=== PATIENT | female | born 1950 | race Caucasian/White ===

== ENCOUNTER 2018-09-02 11:26 | Inpatient (IN) | payer OTHER, SELFPAY ==
[2018-09-02] VITALS (14 sets, daily range): BP systolic 92–149; BP diastolic 45–80; PULSE 83–124; RESP 13–21; TEMP 36.6–39.6; O2SAT 93–97; BMI 47.0
--- NOTE | 2018-09-02 15:05 | PC.NURSE ---
Day shift pt arrived to floor via stretcher from [facility], is A&Ox3 able to make needs known. pt has increased pain to right knee has redness, warmth and increased swelling. pt has hard time bearing weight to right leg, can shuffle transfer. lung sounds are clear 98%RA. spouse at bedside. IV SL. Dr mckenna at bedside aspirated knee and specimens sent to lab. Dr mckenna going to take pt to OR for clean out. oriented to room and call light
[2018-09-02 15:32] LABS: Body Fluid Red Blood Cells 35519 /uL; Body Fluid Tot Nucleated Cells 78137 /uL
[2018-09-02] MEDS: HYDROMORPHONE 0.5 MG INJ IV (15:44)
[2018-09-02 15:49] LABS: Body Fluid Appearance CLOUDY; Body Fluid Clotted? NO CLOTS PRESENT; Body Fluid Color PINK; Eosinophils Body Fluid 0 %; Mononuclear WBC Body Fluid 4 %; Other Cells Body Fluid 0 %; Polynuclear WBC Body Fluid 96 %
[2018-09-02] MEDS: LACTATED RINGERS 1,000 ML 100 ML IV (15:49)
[2018-09-02] MEDS: KETOROLAC 15 MG/ML VIAL IV (15:58)
--- NOTE | 2018-09-02 17:17 | PC.NURSE ---
Student Nurse Dena Note: During shift change, patient reported 10/10 pain to her right lower extremity and was hyperventilating and anxious. Patient was encouraged to wear CPAP and helped set it up. Patient was able to breathe better with CPAP on. Right lower extremity was hot when palpated and red upon inspection. Patient was given 0.5 mg Dilaudid IV push at 1614 and Toradol 15 mg IV push at 1628 by primary nurse. Ice pack was also applied to the patient's right lower extremity, which she reported helped relieve the pain as well. Patient reported feeling better about 30 minutes after the pain medication was given. Around 1645, patient got up to the beside commode to void with a 2 person assist and walker. Patient tolerated it well with slight pain to the RLE. Patient was then transferred to the OR at 1700.
--- NOTE | 2018-09-02 17:29 | SUR.HOLD ---
pt brought down to opd, seen by dr mckenna. at bedside.
--- NOTE | 2018-09-02 18:14 | PM.HP.1 ---
History of Present Illness Date Patient Seen: 09/02/18 Time Patient Seen: 14:47 Chief complaint: possible infected r knee Narrative: This is a 67-year-old lady that had a total knee arthroplasty back in January. She has a history of chronic rheumatoid arthritis and is been on medications for about 26 years. She notes that her knee has been doing very well she has had no pain and no complaints related to the knee. Her swelling completely resolved and she was not taking any pain medications. She has had some increased rheumatological symptoms in bilateral hands and was having difficulty making a fist. Her counselor supervisor is Dr. Valerio in about a month ago he adjusted her medications to include prednisone 20 mg a day and a new injectable DMAR medication. She was doing well until yesterday when she developed acute knee swelling marked increase in her pain and difficulty with walking. She checked her temperature at home and did not have fevers but she felt warm. Her pain progressively worsened and she prevented presented to [facility] where her exam suggested infection in the right knee. I was contacted and accepted her in transfer to [facility]. She was afebrile at [facility] but did have an elevated white count with a sed rate of 16. Her CRP was 2.3. Patient History Family & Social History Family History: Reviewed 09/02/18 by Fernanda Salazar MD Social History: household members spouse Prior Living Arrangements House Safety & Behavioral: Feels Safe in Current Yes Environment Been Physically Hurt or No Threatened By a Person Suicidal Ideation Description None Suicide Plan Description No Plan Tobacco & Substance use: Smoking Status Never smoker alcohol intake never Meds Home Medications Medication Instructions Recorded Confirmed Type calcium carbonate 600 mg PO BID #0 12/30/17 09/02/18 History hydrochlorothiazide 25 mg PO QDAY #0 12/30/17 09/02/18 History imipramine HCl [Tofranil] 100 mg PO HS #0 12/30/17 09/02/18 History losartan 25 mg PO QDAY #0 12/30/17 09/02/18 History multivitamin [Multiple Vitamins] 1 tab PO QDAY #0 12/30/17 09/02/18 History pramipexole [Mirapex] 0.5 mg PO QDAY #0 12/30/17 09/02/18 History ranitidine HCl [Zantac] 150 mg PO HS #0 12/30/17 09/02/18 History aspirin 81 mg PO BID #90 01/17/18 09/02/18 Rx hydroxyzine pamoate 25 mg PO Q4HP PRN #40 cap 01/17/18 09/02/18 Rx oxycodone 5 mg PO Q4HP PRN #60 01/17/18 09/02/18 Rx betamethasone valerate 1 applic TOPICAL TID 09/02/18 09/02/18 History cholecalciferol (vitamin D3) 2,000 unit PO DAILY 09/02/18 09/02/18 History [Vitamin D3] leflunomide 20 mg PO DAILY 09/02/18 09/02/18 History prednisone 20 mg PO DAILY 09/02/18 09/02/18 History tocilizumab 162 mg SUBCUT QWEEK 09/02/18 09/02/18 History triamcinolone acetonide 1 applic TOPICAL TID 09/02/18 09/02/18 History Allergies Allergy/AdvReac Type Severity Reaction Status Date / Time Benzodiazepines AdvReac Severe R/T HEAD Verified 09/02/18 17:27 [BENZODIAZEPINES] INJURY, TEARING CLOTHES OFF, NO MEMORY X2 DAYS lorazepam [LORAZEPAM] AdvReac Severe ANXIETY Verified 09/02/18 17:27 metoprolol [METOPROLOL] AdvReac Severe DEPRESSION, Verified 09/02/18 17:27 EXTREME FATIGUE lisinopril [LISINOPRIL] AdvReac Intermediate COUGH Verified 09/02/18 17:27 Review of Systems Review of Systems Patient notes that she has been feeling reasonably well. She did have a problem with a chronic cough for about 2 weeks but in improved over the last week. She denies a history of recent significant fevers or chills. She has a history of problem with her right foot and has seen podiatry and was treated for a small plantar foot ulcer as recently as a month ago. She denies any recent urological symptoms or difficulty voiding. She had some problems with a probable yeast infection previously which responded to antifungal medications. She is not currently having symptoms of a yeast infection. She denies any recent GI symptoms. She has not had any recent chest pain or neck pain. Her hands and other arthritic joints have been symptomatic but her knee was doing extremely well until yesterday. She denies a history of a DVT or pulmonary embolism does note some swelling in the right leg which is basically worse within the last 24 hr. Exam Vital Signs (past 8 hours): - 09/02/18 13:05 09/02/18 15:13 09/02/18 17:09 Temperature 98.5 F 103.2 F H Pulse Rate 103 H 83 104 H Respiratory Rate 18 20 Blood Pressure 129/55 L 132/69 149/80 H Pulse Oximetry 94 97 Oxygen Delivery Method Room Air Narrative Exam Narrative: She appears to be in substantial distressed and notes severe right knee pain. HEENT is benign. Neck is supple. Lungs show an occasional rhonchi but no wheezes. Heart has a regular rate and rhythm. Abdomen is obese but benign. Bowel sounds are positive. Examination of the right lower extremity shows a well-healed scar. There is a moderate to significant right knee effusion. There is some erythema and the right lower extremity which extends down into the pretibial region. There is mild swelling of the calf. She is nontender along the posterior calf. She has palpable dorsalis pedis and posterior tibial pulses. She is able to fire toe flexors and extensors. Knee range of motion is from 0 to about 90? with severe pain. She has difficulty with any weight-bearing on the right lower extremity. Objective Labs Labs: Laboratory Results - last 24 hr 09/02/18 Unknown Fluid Color [place] Fluid Appearance Cloudy Fluid RBC 35866 Fld Tot Nucleated Cell 62836 Fluid Polynuclear WBCs 96 Fluid Mononuclear WBCs 4 Fluid Eosinophils 0 Fluid Other Cells 0 Body Fluid Clot No clots present Assessment & Plan Plan: Assessment/Plan Narrative: Kaity hernández clinical examination is suggestive of an acute right knee infection. 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 She was afebrile on admission but her temperatures risen to 103. She has not had symptoms in her knee in the last few months. She is on immunosuppressant medications due to her rheumatoid arthritis which have been increased within the last month. Her x-rays are concerning for some radial lucency along the tibial component. Her aspiration showed a significant number of white blood cells. Her sedimentation rate is only 16 and her C reactive protein is 2.3. Her cultures are currently pending. I have recommended urgent right knee irrigation and debridement with a plan for polyethylene exchange. I had an extensive discussion with the patient and her today that this may represent a chronic infection and she may require additional surgeries including removal of her implant placement of an antibiotic spacer and a 2 staged surgery. Currently she is febrile and requires urgent irrigation and debridement. Clinically her symptoms are acute within less than 24 hr. Procedure alternatives risks benefits and complications were discussed in great detail. Specific concerns regarding chronic infection and possible multiple requirement from prolonged antibiotics and multiple procedures was also discussed. Quality VTE Deep Vein Thrombosis/Pulmonary Embolism Present on Admission: No
--- NOTE | 2018-09-02 18:36 | PM.OP.1 ---
Operative Date/Time/Diagnoses Date of procedure: 09/02/18 Time of procedure: 18:36 Pre-op diagnosis: Right knee periprosthetic infection Post-op diagnosis: same Procedure & Clinicians Procedure: Right total knee revision with removal of polyethylene and polyethylene exchange and irrigation and debridement right knee. Same procedure as scheduled: Yes Indications: This is a 67-year-old female who had the acute onset of fevers chills and a right knee effusion and presented to the emergency room and was transferred for evaluation and orthopedic treatment. An aspiration of her knee was highly suggestive of infection should brought the operating room for irrigation and debridement and polyethylene exchange treatment is needed. Surgeon: Fernanda Salazar Hairspring I Inspector: Kassi Durant Anesthesia Type: General Operative Notes Findings: Cloudy fluid throughout the knee with significant inflammation of the synovium, no obvious component loosening, medial tibial cement interface was specifically checked and cultured. Closure Type: primary Specimen(s): other (Multiple cultures and PCR) Implants & Drains: Journey BCS2 size 9, 5 6 poly Applied: drain(s) Estimated Blood Loss (mL): 150 Blood products transfused: none Tourniquet time (min): 70 Procedure in detail: The patient was seen in the pre-operative area, where the patient identified the right knee as the operative site and this was marked with my initials. The patient had her pre-operative antibiotics held so that we could get optimum intraoperative cultures. She was taken to the operating room and placed on the operative table in the supine position. After satisfactory anesthesia, a multimedia developer out was performed. The right leg was encircled with a tourniquet about the proximal thigh, and the leg was prepared from the toes to the tourniquet with ChloroPrep in the usual fashion and draped through sterile drapes. The leg was elevated and the tourniquet inflated to [250] mmHg pressure. The knee was approached through an approximately 18 cm incision centered over the patella and carried into the knee through a medial parapatellar arthrotomy. There was a significant amount of fluid in the knee. Additional intraoperative synovial fluid was sent as well as cultures of the synovium posterior aspect of the knee tibial area and PCR was also sent. A synovectomy was performed and any grossly inflamed, softened or necrotic soft tissues were then removed. The capsule was meticulously mobilized. The polyethylene was removed. Fairly extensive synovectomy was performed including the posterior capsule. The knee was then irrigated with a total of 9 L of pulse lavage. Both the femoral component and the tibial component was meticulously scrubbed with a sterile scrub brush in order to break up any biofilm. The proximal medial tibia was specifically checked in the interface between the bone and the proximal medial tibial component was specifically cultured. There did not appear to be evidence of tibial component loosening or significant proximal tibial softening. After the knee had been meticulously debrided and all cultures had been obtained, gloves and gowns were changed and new instruments were used to insert a new polyethylene. Vancomycin powder was placed in the posterior aspect of the knee as well as the gutters. And also in the suprapatellar pouch and along the synovium. The soft tissues and knee capsule was injected with part of a mixture of 60 ml 0.25% Marcaine mixed with 20 ml Exparel for post operative pain control. The remainder of this mixture was injected into the capsule and subcutaneous tissues. Range of motion was [0-130], with good stability throughout the range. The tourniquet deflated. Hemostasis was obtained with the Bovie cautery. A drain was placed and brought out superolaterally. The capsule was closed with interrupted monofilament PDS. The subcutaneous layer was closed with a limited amount of monofilament PDS. The skin was closed with skin clips. A sam dressing was applied and the patient was taken to recovery having tolerated the procedure well. Complications: none Condition: stable Disposition: Acute Care Plan for aftercare: Follow up on culture results. Place a PICC line. IV antibiotics as indicated likely for 6 weeks of IV antibiotics and then probable oral antibiotics.
[2018-09-02] MEDS: VANCOMYCIN 1,000 MG/200 ML FROZ.PIGGY 200 MG IV (19:15)
[2018-09-02] MEDS: SODIUM CHLORIDE 0.9% 3,000 ML, GENTAMICIN 80 MG IRR (19:21)
[2018-09-02] MEDS: CEFAZOLIN 2 GM/100 ML FROZ.PIGGY IV (19:21)
[2018-09-02] MEDS: VANCOMYCIN 1,000 MG VIAL 1000 MG TOP (19:23)
[2018-09-02] MEDS: SODIUM CHLORIDE IRRIG SOLUTION 3,000 ML 6000 ML IRR (19:27)
[2018-09-02] MEDS: CEFAZOLIN 1 GM VIAL IV (19:31)
--- NOTE | 2018-09-02 20:00 | PC.NURSE ---
Addendum entered by Brenda Rich R.N. 09/02/18 23:46: cpap on, pt remains with oxygen bled. pox 94-99% on cpap. pt ate ice chips and put on NC 2L- 97%. then placed back on cpap. Original Note: Addendum entered by Brenda Rich R.N. 09/02/18 22:04: 2124- pt arrived to floor at 2125 from pacu. pt sleepy, on cpap, and pt has 2 L oxygen bled in. Pt saturation 94-98% on that. when pt is awake. when pt sleeps, pt anywhere from 93-96%. continuous pulse ox applied. Pt oriented. arouses to voice. in room. Pt rolled slightly to right side and her bottom was hurting. pillow placed under bottom and leg. ivett wrap reinforced with tape. HV draining. sam on and flashing OK. bed alarm on. pt refuses water/ice chips at this time. Original Note: 1500- late entry- assumed care of pt. Pt very anxious and crying out/moaning/worked up about pain in knee. Pt given prn medications as ordered fluids started. admission complete and home medications updated. 1530- Pt hyperventilating and very anxious. encouraged to take deep breaths, pt put her CPAP on, given sterile water per protocol. , yue, set up cpap. Pt uses this and it did help. pt given ice pack. NPO for surgery in a few hours. bed alarm on. side rails upx2. givn additional pillows and blanket. 1650-Pt up with 2pa to bsc. still has a lot of pain in her knee even though pain meds are on board. 1700- surgery here to take pt down to surgery. went with.room door and curtain closed.
--- NOTE | 2018-09-02 20:17 | SUR.OPER ---
Supine on padded OR bed. Pillow under head, arms secured on padded armboards <90 degree abduction. Safety belt across torso. Non-operative leg secured with tape over blanket over lower leg. Operative leg secured in DeMayo/Jose Angel positioner. Foam padded brace at thigh of operative leg.
[2018-09-02] MEDS: LACTATED RINGERS 1,000 ML 42 ML IV ×2 (21:05→21:07)
[2018-09-03] VITALS (7 sets, daily range): BP systolic 117–150; BP diastolic 61–79; PULSE 90–102; RESP 14–21; TEMP 36.4–37; O2SAT 92–96
[2018-09-03] MEDS: ACETAMINOPHEN 325 MG TABLET 975 MG PO ×4 (00:31→20:29)
[2018-09-03] MEDS: ASPIRIN EC 81 MG TABLET PO ×3 (00:32→20:29)
[2018-09-03] MEDS: LACTATED RINGERS 1,000 ML 125 ML IV (00:34)
[2018-09-03] MEDS: PRAMIPEXOLE 0.25 MG TABLET 0.5 MG PO ×2 (00:34→08:26)
[2018-09-03] MEDS: DOCUSATE 100 MG CAPSULE PO ×3 (00:36→20:30)
[2018-09-03] MEDS: CEFAZOLIN VIAL 3 GM in SODIUM CHLORIDE 0.9% 100 ML 200 ML IV ×3 (02:46→18:47)
[2018-09-03 05:46] LABS: Add Manual Diff / Slide Review NO; Basophils Percent Auto 0.2 % (0-2); Eosinophils Percent Auto 0.2 % (2-4); Hematocrit 34.5 % (36-46); Hemoglobin 11.4 g/dL (12.0-16.0); Lymphocytes Percent Auto 5.5 % (25-40); Mean Corpuscular HGB Conc 33.1 % (30-36); Mean Corpuscular Hemoglobin 26.6 PG (26-34); Mean Corpuscular Volume 80.3 fL (80-100); Monocytes Percent Auto 12.1 % (3-14); Neutrophils Absolute Auto 13600 /uL (3000-5900); Platelet Count 210 X10^3/uL (150-400); White Blood Cell Count 16.6 X10^3/uL (4.5-11.0)
[2018-09-03] MEDS: IBUPROFEN 600 MG TABLET PO (06:32)
[2018-09-03] MEDS: hydrOXYzine pamoate 25 MG CAPSULE PO (06:33)
[2018-09-03] MEDS: HYDROCODONE/ACET 5/325 TABLET 2 TAB PO (08:03)
[2018-09-03] MEDS: MULTIVITAMIN 1 TABLET 1 TAB PO (08:26)
[2018-09-03] MEDS: hydroCHLOROthiazide 25 MG TABLET PO (08:26)
[2018-09-03] MEDS: LOSARTAN 25 MG TABLET PO (08:26)
[2018-09-03] MEDS: CHOLECALCIFEROL (VITAMIN D3) 1,000 UNIT TABLET 2000 UNIT PO (08:27)
[2018-09-03] MEDS: predniSONE 20 MG TABLET PO (08:27)
--- NOTE | 2018-09-03 09:05 | PT.IIE ---
Addendum entered and electronically signed by Briana Philippe PT 09/03/18 13:36: This is to certify that I have reviewed this documentation and POC Original Note: Current Diagnoses Infection and inflammatory reaction due to internal right knee prosthesis, initial encounter (09/02/18) Surgery Performed Operation Date: 09/02/18 16:30 Actual Procedures p I&D - S/P,Total Knee Arthroplasty, Poss Poly Exchange(Right) - Fernanda Salazar MD Physical Therapy Inpatient Evaluation/Re-Eval M1 PT/OT-IP Prior Functional Status Start: 09/03/18 11:37 Freq: NEEDED Status: Active Protocol: Document 09/03/18 09:05 (Rec: 09/03/18 12:01 [email or web address]) Medical Review Prior Functional Status Medical History Reviewed Yes Communication No deficits noted Mobility and Gait Previous ambulation independent using no AD for shopping distances. Pt uses 2 trekking poles for longer distances over uneven terrain; for example hiking, but she states not having tried that for a while. She is modified independent with self care using a sock aide to dress but is otherwise independent with all self care, showering, dressing and driving. 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 3 steps B rails Home Environment High Toilet Walk in Shower Home Equipment Front Wheel Walker Shower Seat without Backrest Hand Held Shower Financial Administration Officer Sock Aid Grab Bars Near Toilet Additional Social History Comment Other equipment owned: Tempurpedic bed, Recumbant bike, 2 trekking poles. Lives with who can assist 29/04 if needed. M2 PT-IP Current Condition Start: 09/03/18 11:37 Freq: NEEDED Status: Active Protocol: Document 09/03/18 09:05 (Rec: 09/03/18 12:01 [email or web address]) Physical Therapy Current Condition Current Condition Evaluation Date 09/03/18 Treatment Diagnosis R TKA; difficulty walking Onset Date 09/02/2018 Weight Bearing Status Weight Bearing Status Weight Bear as Tolerated M3 PT-IP Subjective Start: 09/03/18 11:37 Freq: NEEDED Status: Active Protocol: Document 09/03/18 09:05 (Rec: 11/28/18 12:01 [email or web address]) Subjective Physical Therapy Visit Type Type Initial Evaluation Visit Start Time 09:05 Visit Stop Time 09:42 Total Visit Minutes 37 Number of MACHINE INKER Visits 0 Physical Therapy Visit Comments Patient Comments Pt agreeable to mobilize Patient Goals plans to go home with spouse when d/c Therapy Pain Assessment Pain When Pain Assessed During Mobility Pain Present Pain Present Pain Reported Location Right Knee Scale Used 5/10 with warm up AAROME; 3-4/ 10 during ambulation; 3/10 resting Pain Behaviors Facial Grimacing Pain Management Techniques Apply Cold Elevation Modification of Treatment Re-positioning Timing of Activity with Medications M4 PT-IP Mobility and Gait Start: 09/03/18 11:37 Freq: NEEDED Status: Active Protocol: Document 09/03/18 09:05 (Rec: 09/03/18 12:01 [email or web address]) PT-Bed Mobility Assessment Supine to Sit Supine to Sit Standby Assistance Head of Bed Elevated Sit to Supine Sit to Supine Standby Assistance Head of Bed Elevated Scooting Scooting to Edge of Bed Standby Assistance Scooting Up and Down in Bed Standby Assistance PT-Transfer Assessment Sit to and From Stand Sit to and from Stand Contact Guard Assistance Minimal Assistance 1 Person Assistance Use of Upper Extremities Equipment Transfer Assistive Device Gait Belt Front Wheeled Walker Orthotic/Prosthetic Devices or Brace: No Transfers Transfer Destination Bed Chair Transfer Technique Ambulates between surfaces. Comments Mobility Comments Resting/supine HOB elevated BP 123/71, HR 89. Supine <> sit with HOB elevated (per pt preference) is SBA no cues; requiring slight increased time and heavy reliance on BUE , but pt able to complete. Sit <> stand 1st attempt requiring Ana, BUE use, min cues; however, after ambulation (see below), Sit <> stand completed CGA, BUE use, no cues. Gait Assessment Gait Gait Assistance Required: Standby Assistance Distance (Feet) 30 Able to Maintain Weight Bearing Status Yes During Gait Assistive Devices Assistive Device Gait Belt Front Wheeled Walker Orthotic/Prosthetic Devices or Brace: No Gait Deviations General Gait Pattern Antalgic Decreased Stride Length Decreased Feet Clearance Factors Limiting Gait Function Factors Limiting Gait Function Decreased Activity Tolerance Decreased Strength Limited Range of Motion Pain Poor Balance Comments Gait Comments Pt ambulates 30+30 ft in room with fww SBA with cues. Gait notable for antalgic limp over R side, lateral trunk sway, decreased stride length, low foot clearance and slow guarded pace. Sway and antalgic gait are improved with cues to activate quads R LE, foot clearance improves with cue to lease picker knees. Pt relying heavily on walker during ambulation. Pt denies nausea/dizziness or headache throughout session. PT-Balance Assessment Sitting Balance and Reactions Static Sitting Balance Ability Good Dynamic Sitting Balance Ability Good Standing Balance and Reactions Static Standing Balance Ability Good Dynamic Standing Balance Ability Fair Device Used fww M5 PT-IP Objective Assessments Start: 09/03/18 11:37 Freq: NEEDED Status: Active Protocol: Document 09/03/18 09:05 (Rec: 09/03/18 12:01 [email or web address]) Orientation Orientation/Cognition Level of Alertness Alert Orientation Name Age Birthday Month Date Year Day of Week Place Situation Language Function Ability No Deficits Noted Safety Awareness Decreased Safety Awareness Memory Description No Deficits Noted Gross Range of Motion Lower Extremity ROM Assessment Right Impaired Impairments R knee flexion 70 deg. Knee extension 0 deg Strength Lower Extremity Strength Assessment Right Impaired Hip 3 Knee 3 Ankle 5 Comments Strength Comments RLE WNL Sensation Assessment Sensation Light Touch Intact M6 PT-IP Treatment Start: 09/03/18 11:37 Freq: NEEDED Status: Active Protocol: Document 09/03/18 09:05 (Rec: 09/03/18 12:01 [email or web address]) Physical Therapy Treatment Education Education Provided Precautions Weight Bearing Status Post-Op Packet Safety Other Treatments Other Treatment Performed AAROME X10 R knee heel slides M7 PT-IP Assessment and Plan Start: 09/03/18 11:37 Freq: NEEDED Status: Active Protocol: Document 09/03/18 09:05 (Rec: 09/03/18 12:01 [email or web address]) PT Summary Assessment and Plan Potential Rehabilitation Potential Good Status of Condition at Evaluation Stable Summary Impairments Pain ROM Strength Balance Bed Mobility Transfers Gait Activity Tolerance Progress Towards Goals Progressing Toward Goals Assessment Summary Pt s/p R TKA with difficulty walking. She ambulated 30 + 30 ft in room with fww SBA and stated mobility helped to reduce her pain. The patient still needs to complete stair climbing, progress ambulation distances, and complete caregiver training as needed prior to d/c. Then, when pt is medically ready, we recommend d/c to home with assist of spouse and OP PT. Pt still does not have OP PT scheduled. Goals Bed Mobility Goal Independent Transfer Goal Independent Front Wheeled Walker Gait Goal Independent Front Wheel Walker Gait Distance 150 Other Goals Up/down 3 steps B rails CGA. Frequency of Treatment Frequency Of Treatment Twice a Day Treatment Plan Physical Therapy Treatment Plan Bed Mobility Training Transfer Training Gait Training Therapeutic Exercise Balance Retraining Post Op Education Discharge Planning Hot or Cold Pack Neuromuscular Re-ed Coordination Retraining Manual Therapy Other Recommendations and Next Treatment Progress ambulation, stair Focus climbing, review post-op TKA exercises, arrange caregiver training Recommendations To Nursing Amount of Assist Needed 1 Person Assist Discharge Recommendations PT Discharge Recommendations Home with Assistance Outpatient PT
[2018-09-03 13:19] LABS: Estimated Glomerular Filt Rate > 60.0 mL/min (>60)
--- NOTE | 2018-09-03 13:45 | PT.IPTN ---
Current Diagnoses Infection and inflammatory reaction due to internal right knee prosthesis, initial encounter (09/02/18) Surgery Performed Operation Date: 09/02/18 16:30 Actual Procedures p I&D - S/P,Total Knee Arthroplasty, Poss Poly Exchange(Right) - Fernanda Salazar MD Physical Therapy Treatment Note M2 PT-IP Current Condition Start: 09/03/18 11:37 Freq: NEEDED Status: Active Protocol: Document 09/03/18 09:05 (Rec: 09/03/18 12:01 [email or web address]) Physical Therapy Current Condition Current Condition Evaluation Date 09/03/18 Treatment Diagnosis R TKA; difficulty walking Onset Date 09/02/2018 Weight Bearing Status Weight Bearing Status Weight Bear as Tolerated M3 PT-IP Subjective Start: 09/03/18 11:37 Freq: NEEDED Status: Active Protocol: Document 09/03/18 13:45 GGD (Rec: 09/03/18 15:36 GGD [email or web address]) Subjective Physical Therapy Visit Type Type Treatment Note Visit Start Time 13:15 Visit Stop Time 13:45 Total Visit Minutes 30 Number of BLOOD BANK LABORATORY TECHNICIAN Visits 1 Physical Therapy Visit Comments Patient Comments Pt states she would like to get up. Therapy Pain Assessment Pain When Pain Assessed During Mobility Pain Present Pain Present Pain Reported Location Right Knee Intensity 4 Scale Used Numeric (1 - 10) Pain Management Techniques Re-positioning Timing of Activity with Medications M4 PT-IP Mobility and Gait Start: 09/03/18 11:37 Freq: NEEDED Status: Active Protocol: Document 09/03/18 13:45 GGD (Rec: 09/03/18 15:36 GGD [email or web address]) PT-Bed Mobility Assessment Supine to Sit Supine to Sit Standby Assistance Head of Bed Elevated Sit to Supine Sit to Supine Standby Assistance Head of Bed Elevated Scooting Scooting to Edge of Bed Standby Assistance Scooting Up and Down in Bed Standby Assistance PT-Transfer Assessment Sit to and From Stand Sit to and from Stand Contact Guard Assistance Use of Upper Extremities Equipment Transfer Assistive Device Gait Belt Front Wheeled Walker Orthotic/Prosthetic Devices or Brace: No Transfers Transfer Destination Bed Chair Gait Assessment Gait Gait Assistance Required: Standby Assistance Distance (Feet) 80 Able to Maintain Weight Bearing Status Yes During Gait Assistive Devices Assistive Device Gait Belt Front Wheeled Walker Orthotic/Prosthetic Devices or Brace: No Gait Deviations General Gait Pattern Antalgic Decreased Stride Length Decreased Feet Clearance Factors Limiting Gait Function Factors Limiting Gait Function Decreased Activity Tolerance Decreased Strength Limited Range of Motion Pain Poor Balance Comments Gait Comments Pt needed cues for gait pattern. M5 PT-IP Objective Assessments Start: 09/03/18 11:37 Freq: NEEDED Status: Active Protocol: Document 09/03/18 09:05 (Rec: 09/03/18 12:01 [email or web address]) Orientation Orientation/Cognition Level of Alertness Alert Orientation Name Age Birthday Month Date Year Day of Week Place Situation Language Function Ability No Deficits Noted Safety Awareness Decreased Safety Awareness Memory Description No Deficits Noted Gross Range of Motion Lower Extremity ROM Assessment Right Impaired Impairments R knee flexion 70 deg. Knee extension 0 deg Strength Lower Extremity Strength Assessment Right Impaired Hip 3 Knee 3 Ankle 5 Comments Strength Comments RLE WNL Sensation Assessment Sensation Light Touch Intact M6 PT-IP Treatment Start: 09/03/18 11:37 Freq: NEEDED Status: Active Protocol: Document 09/03/18 13:45 GGD (Rec: 09/03/18 15:36 GGD [email or web address]) Physical Therapy Treatment Exercises Exercises Ankle Pumps Quad Sets Heel Slides Seated Knee Flexion/Extension Education Education Provided Post-Op Packet M7 PT-IP Assessment and Plan Start: 09/03/18 11:37 Freq: NEEDED Status: Active Protocol: Document 09/03/18 13:45 GGD (Rec: 09/03/18 15:36 GGD [email or web address]) PT Summary Assessment and Plan Summary Assessment Summary Pt improving with mobility and pain control. She was safe with bed mobility and no LOB with gait. She had improved in pain with weight bearing. She will need stair training before D/C. Frequency of Treatment Frequency Of Treatment Twice a Day Treatment Plan Other Recommendations and Next Treatment Progress ambulation, stair Focus climbing, review post-op TKA exercises Recommendations To Nursing Amount of Assist Needed 1 Person Assist Discharge Recommendations PT Discharge Recommendations Home with Assistance Outpatient PT
--- NOTE | 2018-09-03 14:16 | DI.RAD.S_ITS ---
PROCEDURE: XR CHEST FOR PICC 1V INDICATIONS: line placement COMPARISON: None. FINDINGS: PICC was placed by the intravenous therapy team from the left side. Fluoroscopic spot film demonstrates tip of PICC overlies the proximal SVC. IMPRESSION: Tip of PICC overlies the proximal SVC. Dictated by: Aaliyah Madden M.D. on 09/03/2018 at 14:46 Approved by: Aaliyah Madden M.D. on 09/03/2018 at 14:47
[2018-09-03] MEDS: VANCOMYCIN 2,000 MG in SODIUM CHLORIDE 0.9% 500 ML 250 ML IV (15:06)
--- NOTE | 2018-09-03 16:08 | CM.IDA ---
Discharge Planning/Care Management CM Discharge Assessment Start: 09/03/18 15:58 Freq: Status: Active Protocol: Document 09/03/18 15:58 REED (Rec: 09/03/18 16:08 REED [id number]) Discharge Planning Assessment Assigned Net Mvc Developer AMBIKA Nelson DPOA/Assigned Designee Name Marko Mathew, spouse Contact Information [phone] Advance Directives? No History Provided By Patient Prior Living Arrangements House Household Members spouse Type of transporation used prior to Drives own vehicle admit Independent with ADL's Yes Is patient alert and oriented? 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 She hopes to return to work as soon as she can. Comment Walk in shower, walker, see PT note for detail. Patient/Family Preference Home with Home Health Comment Dr Salazar anticipates 6 wks of IV abx for this septic knee joint. PT: Home w/assist and outpt PT Barriers to Discharge No Transportation Arrangement Family Additional Comment Awaiting culture results and IVabx that will be ordered upon DC in order to start referral process to an infusion company. Comment Met w/pt, explained SW role. 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 She lives w/her , who is retired. She hopes to get back to work as soon as she can. Reviewed Dr Salazar's recommendation for 6 wks of IV abx, abx unknown at this time . Pt hopes to have home infusion if covered by her insurance. Placed call to [facility]; spoke to Brenda. For infusion, pt has no deductable, has a $2,000 out of pocket maximum and $458 is left for that. 20% co- insurance. Relayed this to pt this afternoon. Awaiting to hear what abx will be ordered to further plan for pt. SNF/HH Preference No infusion company preference Whiteboard Updated in Patient Room with Yes name and ext. # of Net Mvc Developer Review Status In Process
--- NOTE | 2018-09-03 16:08 | PM.PNPO.1 ---
Subjective Date Patient Seen: 09/03/18 Time Patient Seen: 16:08 Interval history: Patient's pain is [id number]. Denies fever chills. No nausea vomiting. She has been up with physical therapy twice today and is without complaints. Exam Vital Signs (past 8 hours): - 09/03/18 12:30 Temperature 97.6 F Pulse Rate 94 H Respiratory Rate 20 Blood Pressure 150/78 H Pulse Oximetry 92 Oxygen Delivery Method CPAP Oxygen Flow Rate 0 Narrative Exam Narrative: Pleasant 67-year-old female resting comfortably in bedside chair in no apparent distress. Dressing is clean, dry and intact. Hemovac in place. Sensation grossly intact to the distal lower extremity. Motor functions intact right lower extremity. Hemovac 135 cc over last shift. Objective Labs Result Diagrams: 09/03/18 05:02 09/03/18 05:02 Labs: Laboratory Results - last 24 hr 09/02/18 09/03/18 09/03/18 Unknown 05:02 05:02 WBC 16.6 H RBC 4.30 Hgb 11.4 L Hct 34.5 L MCV 80.3 MCH 26.6 MCHC 33.1 RDW 17.0 H Plt Count 210 Neut % (Auto) 82.0 H Lymph % (Auto) 5.5 L [place] % (Auto) 12.1 Eos % (Auto) 0.2 L Baso % (Auto) 0.2 Neut # (Auto) 94277 H Creatinine 0.70 Estimated GFR > 60.0 Fluid Color [place] Fluid Appearance Cloudy [place] RBC 39[address] Fld Tot Nucleated Cell 70182 Fluid Polynuclear WBCs 96 Fluid Mononuclear WBCs 4 Fluid Eosinophils 0 Fluid Other Cells 0 Body Fluid Clot No clots present Body Fluid 09/03/18 Gram Stain Final 09/02/18-1733 No Organism Seen No organisms seen White blood cells Many poly WBCs Aerobic Culture Final 09/03/18-1025 Group B Strep pos Organism 1 Streptococcus group B Growth LIGHT Action to follow No Further Workup Anaerobic Culture Pending Assessment & Plan Post-op Postoperative Procedures Operation Date: 09/02/18 16:30 Actual Procedures Side Surgeon p I&D - S/P,Total Knee Arthroplasty, Poss Poly Exchange Right Fernanda Gina Salazar MD Postop day 1 status post right knee revision with removal polyethylene and polyethylene exchange, irrigation debridement right knee. PICC line ordered. Patient will be placed on vancomycin and wait final culture results. Patient will likely need 6 weeks of IV antibiotics and then probable oral antibiotics. Mobilize with physical therapy. Quality VTE Deep Vein Thrombosis/Pulmonary Embolism Present on Admission: No
--- NOTE | 2018-09-03 16:14 | P.PN_ITS ---
Subjective Date Patient Seen: 09/03/18 Time Patient Seen: 16:08 Interval history: Patient's pain is [id number]. Denies fever chills. No nausea vomiting. She has been up with physical therapy twice today and is without complaints. Exam Vital Signs (past 8 hours): - 09/03/18 12:30 Temperature 97.6 F Pulse Rate 94 H Respiratory Rate 20 Blood Pressure 150/78 H Pulse Oximetry 92 Oxygen Delivery Method CPAP Oxygen Flow Rate 0 Narrative Exam Narrative: Pleasant 67-year-old female resting comfortably in bedside chair in no apparent distress. Dressing is clean, dry and intact. Hemovac in place. Sensation grossly intact to the distal lower extremity. Motor functions intact right lower extremity. Hemovac 135 cc over last shift. Objective Labs Result Diagrams: 09/03/18 05:02 09/03/18 05:02 Labs: Laboratory Results - last 24 hr 09/02/18 09/03/18 09/03/18 Unknown 05:02 05:02 WBC 16.6 H RBC 4.30 Hgb 11.4 L Hct 34.5 L MCV 80.3 MCH 26.6 MCHC 33.1 RDW 17.0 H Plt Count 210 Neut % (Auto) 82.0 H Lymph % (Auto) 5.5 L [place] % (Auto) 12.1 Eos % (Auto) 0.2 L Baso % (Auto) 0.2 Neut # (Auto) 46192 H Creatinine 0.70 Estimated GFR > 60.0 Fluid Color [place] Fluid Appearance [place] [address] Fld Tot Nucleated Cell 43423 Fluid Polynuclear WBCs 96 Fluid Mononuclear WBCs 4 Fluid Eosinophils 0 Fluid Other Cells 0 Body Fluid Clot No clots present Body Fluid 09/03/18 Gram Stain Final 09/02/18-1733 No Organism Seen No organisms seen White blood cells Many poly WBCs Aerobic Culture Final 09/03/18- 1025 Group B Strep pos Organism 1 Streptococcus group B Growth LIGHT Action to follow No Further Workup Anaerobic Culture Pending Assessment & Plan Post-op Postoperative Procedures Operation Date: 09/02/18 16:30 Actual Procedures Side Surgeon p I&D - S/P,Total Knee Arthroplasty, Poss Poly Exchange Right Fernanda Gina Salazar MD Postop day 1 status post right knee revision with removal polyethylene and polyethylene exchange, irrigation debridement right knee. PICC line ordered. Patient will be placed on vancomycin and wait final culture results. Patient will likely need 6 weeks of IV antibiotics and then probable oral antibiotics. Mobilize with physical therapy. Quality VTE Deep Vein Thrombosis/Pulmonary Embolism Present on Admission: No
--- NOTE | 2018-09-03 18:39 | PC.NURSE ---
Addendum entered by Alivia Joiner 09/03/18 20:13: 2005- Patient ambulated in hallway with CLINICAL TRIALS SPECIALIST. Patient is not complaining of pain during or after ambulation, only a slight ache. She is back in her recliner. went home for the evening around 1930. Call light is in reach. Original Note: Addendum entered by Alivia Joiner 09/03/18 20:09: 1815- Patient in recliner, awaiting arrival of visitors. Patient has her call light and her is with her. Original Note: 1650- Patient was able to stand on her own using front wheel walker to get from recliner to bathroom, only requiring help from psychiatric nursing assistant with IV pole. Patient back in bed, HOB elevated. is in the room. Call light in reach, bed lowered, side rails up x2 for patient safety.
[2018-09-03] MEDS: IMIPRAMINE HCL 25 MG TABLET 100 MG PO (20:30)
[2018-09-03] MEDS: VANCOMYCIN 1,000 MG/200 ML FROZ.PIGGY 200 MG IV (22:11)
[2018-09-03] MEDS: OXYCODONE IR 5 MG TABLET PO (22:53)
[2018-09-04] MEDS: hydrOXYzine pamoate 25 MG CAPSULE PO (01:55)
[2018-09-04] MEDS: CEFAZOLIN VIAL 3 GM in SODIUM CHLORIDE 0.9% 100 ML 200 ML IV ×3 (01:55→18:03)
[2018-09-04] MEDS: SODIUM CHLORIDE 0.9% FLUSH 10 ML IV ×4 (01:55→20:30)
[2018-09-04] MEDS: OXYCODONE IR 5 MG TABLET PO ×2 (01:55→21:57)
--- NOTE | 2018-09-04 03:30 | PC.NURSE ---
0215 Patient is alert and oriented. Breath sounds CTA with RA sat of 96%. HRR although slightly tachy in low 100's and BP elevated at 147/79. Denies nausea. BT hypoactive but states she has passed some flatus. Denies dysuria, frequency, urgency or incontinence. Is able to turn self in bed. Assisted when out of bed with walker and 1 assist. JENNIFER dressing intact with sanguinous drainage noted and outlined. Sae wrap around right leg is CDI. Hemovac is intact and compressed. Complains of 8/10 pain in knee so medicated with Oxycodone (her pain med of choice) + Vistaril and ice applied. SCD applied to left leg. Fall risk score is moderate; bed alarm is activated.
[2018-09-04 04:20] VITALS: BP 149/80; PULSE 110; RESP 20; TEMP 36.5; O2SAT 94
[2018-09-04] MEDS: VANCOMYCIN 1,000 MG/200 ML FROZ.PIGGY 200 MG IV ×3 (06:01→21:57)
[2018-09-04] MEDS: IBUPROFEN 600 MG TABLET PO (06:01)
[2018-09-04 08:00] VITALS: BP 135/75; PULSE 100; RESP 18; TEMP 36.9; O2SAT 97
[2018-09-04] MEDS: ACETAMINOPHEN 325 MG TABLET 975 MG PO ×3 (09:31→20:29)
[2018-09-04] MEDS: ASPIRIN EC 81 MG TABLET PO ×2 (09:32→20:29)
[2018-09-04] MEDS: DOCUSATE 100 MG CAPSULE PO ×2 (09:32→20:29)
[2018-09-04] MEDS: CHOLECALCIFEROL (VITAMIN D3) 1,000 UNIT TABLET 2000 UNIT PO (09:32)
[2018-09-04] MEDS: MULTIVITAMIN 1 TABLET 1 TAB PO (09:33)
[2018-09-04] MEDS: LOSARTAN 25 MG TABLET PO (09:33)
[2018-09-04] MEDS: hydroCHLOROthiazide 25 MG TABLET PO (09:33)
[2018-09-04] MEDS: predniSONE 20 MG TABLET PO (09:34)
[2018-09-04] MEDS: PRAMIPEXOLE 0.25 MG TABLET 0.5 MG PO (09:34)
--- NOTE | 2018-09-04 10:18 | PM.PNPO.1 ---
Subjective Date Patient Seen: 09/04/18 Time Patient Seen: 10:18 Interval history: Hospital day 3, postop day 2 following right total knee I and D and poly exchange by Dr. Salazar. Patient has PICC line in place. Exam Vital Signs (past 8 hours): - 09/04/18 04:20 09/04/18 08:00 Temperature 97.7 F 98.4 F Pulse Rate 110 H 100 H Respiratory Rate 20 18 Blood Pressure 149/80 H 135/75 Pulse Oximetry 94 97 Oxygen Delivery Method Room Air Oxygen Flow Rate 0 Objective Labs Result Diagrams: 09/03/18 05:02 09/03/18 05:02 Labs: Laboratory Results - last 24 hr 09/02/18 09/03/18 Unknown 05:02 Creatinine 0.70 Estimated GFR > 60.0 Fluid Color [place] Fluid [place] [address] Fld Tot Nucleated Cell 53696 Fluid Polynuclear WBCs 96 Fluid Mononuclear WBCs 4 Fluid Eosinophils 0 Fluid Other Cells 0 Body Fluid Clot No clots present Assessment & Plan Post-op Postoperative Procedures Operation Date: 09/02/18 16:30 Actual Procedures Side Surgeon p I&D - S/P,Total Knee Arthroplasty, Poss Poly Exchange Right Fernanda Salazar MD Quality VTE Deep Vein Thrombosis/Pulmonary Embolism Present on Admission: No
--- NOTE | 2018-09-04 10:19 | PM.PNPO.1 ---
Subjective Date Patient Seen: 09/04/18 Time Patient Seen: 10:20 Interval history: Hospital day 3, postop day 2 following infected right total knee arthroplasty with I and D and poly exchange by Dr. Salazar. Patient has PICC line in place. Receiving vancomycin IV. Intraoperative wound culture notes group B Streptococcus. Hemovac continues to drain over 100 cc. Patient taking oxycodone 5 mg and ibuprofen 600 mg for pain. She was up ambulating with physical therapy yesterday. Exam Vital Signs (past 8 hours): - 09/04/18 04:20 09/04/18 08:00 Temperature 97.7 F 98.4 F Pulse Rate 110 H 100 H Respiratory Rate 20 18 Blood Pressure 149/80 H 135/75 Pulse Oximetry 94 97 Oxygen Delivery Method Room Air Oxygen Flow Rate 0 Narrative Exam Narrative: Alert, oriented no acute distress sitting in chair eating breakfast. Legs. Sae wrap and PIC0 VAC dressing in place. No signs of erythema or infection to the knee. No calf pain or swelling. Pulses symmetrical. Patient able to fire her quad well. Hemovac in place with over 100 cc drainage. Objective Labs Result Diagrams: 09/03/18 05:02 09/03/18 05:02 Labs: Laboratory Results - last 24 hr 09/02/18 09/03/18 Unknown 05:02 Creatinine 0.70 Estimated GFR > 60.0 Fluid Color [place] Fluid [place] [address] Fld Tot Nucleated Cell 28295 Fluid Polynuclear WBCs 96 Fluid Mononuclear WBCs 4 Fluid Eosinophils 0 Fluid Other Cells 0 Body Fluid Clot No clots present Assessment & Plan Post-op Postoperative Procedures Operation Date: 09/02/18 16:30 Actual Procedures Side Surgeon p I&D - S/P,Total Knee Arthroplasty, Poss Poly Exchange Right Fernanda Gina Salazar MD Plan: Will keep the Hemovac in today to watch for decreased drainage. Wait on final culture results. Will need IV antibiotic plan from Dr. Salazar for discharge home postop day tomorrow. Quality VTE Deep Vein Thrombosis/Pulmonary Embolism Present on Admission: No
--- NOTE | 2018-09-04 10:24 | P.PN_ITS ---
Subjective Date Patient Seen: 09/04/18 Time Patient Seen: 10:20 Interval history: Hospital day 3, postop day 2 following infected right total knee arthroplasty with I and D and poly exchange by Dr. Salazar. Patient has PICC line in place. Receiving vancomycin IV. Intraoperative wound culture notes group B Streptococcus. Hemovac continues to drain over 100 cc. Patient taking oxycodone 5 mg and ibuprofen 600 mg for pain. She was up ambulating with physical therapy yesterday. Exam Vital Signs (past 8 hours): - 09/04/18 04:20 09/04/18 08:00 Temperature 97.7 F 98.4 F Pulse Rate 110 H 100 H Respiratory Rate 20 18 Blood Pressure 149/80 H 135/75 Pulse Oximetry 94 97 Oxygen Delivery Method Room Air Oxygen Flow Rate 0 Narrative Exam Narrative: Alert, oriented no acute distress sitting in chair eating breakfast. Legs. Sae wrap and PIC0 VAC dressing in place. No signs of erythema or infection to the knee. No calf pain or swelling. Pulses symmetrical. Patient able to fire her quad well. Hemovac in place with over 100 cc drainage. Objective Labs Result Diagrams: 09/03/18 05:02 09/03/18 05:02 Labs: Laboratory Results - last 24 hr 09/02/18 09/03/18 Unknown 05:02 Creatinine 0.70 Estimated GFR > 60.0 Fluid Color [place] Fluid Appearance Cloudy Fluid [place] 03931 Fld Tot Nucleated Cell 56294 Fluid Polynuclear WBCs 96 Fluid Mononuclear WBCs 4 Fluid Eosinophils 0 Fluid Other Cells 0 Body Fluid Clot No clots present Assessment & Plan Post-op Postoperative Procedures Operation Date: 09/02/18 16:30 Actual Procedures Side Surgeon p I&D - S/P,Total Knee Arthroplasty, Poss Poly Exchange Right Fernanda Gina Salazar MD Plan: Will keep the Hemovac in today to watch for decreased drainage. Wait on final culture results. Will need IV antibiotic plan from Dr. Salazar for discharge home postop day tomorrow. Quality VTE Deep Vein Thrombosis/Pulmonary Embolism Present on Admission: No
--- NOTE | 2018-09-04 11:15 | PT.IPTN ---
Current Diagnoses Infection and inflammatory reaction due to internal right knee prosthesis, initial encounter (09/02/18) Surgery Performed Operation Date: 09/02/18 16:30 Actual Procedures p I&D - S/P,Total Knee Arthroplasty, Poss Poly Exchange(Right) - Fernanda Salazar MD Physical Therapy Treatment Note M2 PT-IP Current Condition Start: 09/03/18 11:37 Freq: NEEDED Status: Active Protocol: Document 09/03/18 09:05 (Rec: 09/03/18 12:01 [email or web address]) Physical Therapy Current Condition Current Condition Evaluation Date 09/03/18 Treatment Diagnosis R TKA; difficulty walking Onset Date 09/02/2018 Weight Bearing Status Weight Bearing Status Weight Bear as Tolerated M3 PT-IP Subjective Start: 09/03/18 11:37 Freq: NEEDED Status: Active Protocol: Document 09/04/18 11:15 GGD (Rec: 09/04/18 12:25 GGD [id number]) Subjective Physical Therapy Visit Type Type Treatment Note Visit Start Time 11:00 Visit Stop Time 11:15 Total Visit Minutes 15 Number of CHURCH WARDEN Visits 2 Physical Therapy Visit Comments Patient Comments Pt states she feel better. Therapy Pain Assessment Pain When Pain Assessed During Mobility Pain Present Pain Present Pain Reported Location Right Knee Intensity 2 M4 PT-IP Mobility and Gait Start: 09/03/18 11:37 Freq: NEEDED Status: Active Protocol: Document 09/04/18 11:15 GGD (Rec: 09/04/18 12:25 GGD [id number]) PT-Transfer Assessment Sit to and From Stand Sit to and from Stand Standby Assistance Use of Upper Extremities Equipment Transfer Assistive Device Gait Belt Front Wheeled Walker Orthotic/Prosthetic Devices or Brace: No Transfers Transfer Destination Chair Gait Assessment Gait Gait Assistance Required: Standby Assistance Distance (Feet) 150 Able to Maintain Weight Bearing Status Yes During Gait Assistive Devices Assistive Device Gait Belt Front Wheeled Walker Orthotic/Prosthetic Devices or Brace: No Gait Deviations General Gait Pattern Antalgic Decreased Stride Length Decreased Feet Clearance Factors Limiting Gait Function Factors Limiting Gait Function Decreased Activity Tolerance Decreased Strength Limited Range of Motion Pain Poor Balance M5 PT-IP Objective Assessments Start: 09/03/18 11:37 Freq: NEEDED Status: Active Protocol: Document 09/03/18 09:05 (Rec: 09/03/18 12:01 [email or web address]) Orientation Orientation/Cognition Level of Alertness Alert Orientation Name Age Birthday Month Date Year Day of Week Place Situation Language Function Ability No Deficits Noted Safety Awareness Decreased Safety Awareness Memory Description No Deficits Noted Gross Range of Motion Lower Extremity ROM Assessment Right Impaired Impairments R knee flexion 70 deg. Knee extension 0 deg Strength Lower Extremity Strength Assessment Right Impaired Hip 3 Knee 3 Ankle 5 Comments Strength Comments RLE WNL Sensation Assessment Sensation Light Touch Intact M6 PT-IP Treatment Start: 09/03/18 11:37 Freq: NEEDED Status: Active Protocol: Document 09/04/18 11:15 GGD (Rec: 09/04/18 12:25 GGD [id number]) Physical Therapy Treatment Exercises Exercises Ankle Pumps Quad Sets Seated Knee Flexion/Extension M7 PT-IP Assessment and Plan Start: 09/03/18 11:37 Freq: NEEDED Status: Active Protocol: Document 09/04/18 11:15 GGD (Rec: 09/04/18 12:25 GGD [id number]) PT Summary Assessment and Plan Summary Assessment Summary Pt improving with mobility. She improved with gait distance and pattern. She improved with knee ROM and pain control. She had min use of UE on FWW with gait. Safe for home D/C when medically stable. Goals Other Goals Up/down 3 steps B rails CGA. Frequency of Treatment Frequency Of Treatment Twice a Day Treatment Plan Other Recommendations and Next Treatment Progress ambulation, stair Focus climbing, review post-op TKA exercises Recommendations To Nursing Amount of Assist Needed 1 Person Assist Discharge Recommendations PT Discharge Recommendations Home with Assistance Outpatient PT
[2018-09-04 12:00] VITALS: BP 140/75; PULSE 94; RESP 18; TEMP 36.9; O2SAT 96
[2018-09-04] MEDS: VANCOMYCIN TROUGH 1 REQUEST MISC (13:35)
[2018-09-04 14:24] LABS: Vancomycin Trough 10.4 ug/mL (10-20)
[2018-09-04 16:15] VITALS: BP 155/80; PULSE 109; RESP 16; TEMP 36.6; O2SAT 95
--- NOTE | 2018-09-04 16:29 | PT.IPTN ---
Current Diagnoses Infection and inflammatory reaction due to internal right knee prosthesis, initial encounter (09/02/18) Surgery Performed Operation Date: 09/02/18 16:30 Actual Procedures p I&D - S/P,Total Knee Arthroplasty, Poss Poly Exchange(Right) - Fernanda Salazar MD Physical Therapy Treatment Note M2 PT-IP Current Condition Start: 09/03/18 11:37 Freq: NEEDED Status: Active Protocol: Document 09/03/18 09:05 (Rec: 09/03/18 12:01 [email or web address]) Physical Therapy Current Condition Current Condition Evaluation Date 09/03/18 Treatment Diagnosis R TKA; difficulty walking Onset Date 09/02/2018 Weight Bearing Status Weight Bearing Status Weight Bear as Tolerated M3 PT-IP Subjective Start: 09/03/18 11:37 Freq: NEEDED Status: Active Protocol: Document 09/04/18 15:00 GGD (Rec: 09/04/18 16:29 GGD [id number]) Subjective Physical Therapy Visit Type Notes Per RN let pt sleep as she hasn't been able to nap. Will see in AM. Amount of Assist Needed 1 Person Assist Discharge Recommendations PT Discharge Recommendations Home with Assistance Outpatient PT
--- NOTE | 2018-09-04 16:32 | CM.DPC ---
DCP Cont: [facility] following closely, pt agreeable to this plan. Pt eager to return home when medically cleared. [facility] anticipates DC home Saturday, final coordination still needed when the DC IV abx order is completed. Following closely. AMBIKA Khalil
[2018-09-04] MEDS: IMIPRAMINE HCL 25 MG TABLET 100 MG PO (20:29)
[2018-09-04 21:23] VITALS: BP 163/67; PULSE 98; RESP 18; TEMP 36.6; O2SAT 98
[2018-09-05] MEDS: CEFAZOLIN VIAL 3 GM in SODIUM CHLORIDE 0.9% 100 ML 200 ML IV (02:06)
[2018-09-05] MEDS: SODIUM CHLORIDE 0.9% FLUSH 10 ML IV ×2 (02:07→09:25)
[2018-09-05 02:25] VITALS: BP 117/75; PULSE 106; RESP 19; TEMP 36.8; O2SAT 97
--- NOTE | 2018-09-05 02:28 | PC.NURSE ---
Addendum entered by Julia Gallo R.N. 09/05/18 05:49: 0500 Pain down to 3/10; assisted to bathroom and then back to bed Original Note: Addendum entered by Julia Gallo R.N. 09/05/18 03:56: States right knee pain is now 4/10 making it difficult to fall asleep. Medicated with Ibuprofen and requesting to sit up in chair after toileting. Original Note: Patient is alert and oriented. Breath sounds CTA with RA sat of 97%; using CPAP when asleep. HRR but remains tachy at 106 bpm. Denies nausea. BT present and abdomen is soft. Denies dysuria, frequency or urgency. Turns self in bed. SBA + walker when up to bathroom. JENNIFER dressing intact with no new drainage noted. Hemovac intact and compressed with serosanguinous drainage noted in drain. Sae wrap over JENNIFER is CDI as well. CMS +. States pain is 3/10 and tolerable so declines pain med. Refusing SCD's tonight. Fall risk score is moderate but is always calling appropriately so alarm is not in use at this time; verbalizes understanding to not get out of bed without staff assist.
[2018-09-05] MEDS: VANCOMYCIN 1,000 MG/200 ML FROZ.PIGGY 200 MG IV (03:51)
[2018-09-05] MEDS: IBUPROFEN 600 MG TABLET PO (03:53)
[2018-09-05 04:08] VITALS: BP 163/98; PULSE 98; RESP 18; TEMP 36.6; O2SAT 96
[2018-09-05] MEDS: LOSARTAN 25 MG TABLET PO (09:12)
[2018-09-05] MEDS: hydroCHLOROthiazide 25 MG TABLET PO (09:12)
[2018-09-05] MEDS: ACETAMINOPHEN 325 MG TABLET 975 MG PO ×2 (09:12→16:32)
[2018-09-05] MEDS: predniSONE 20 MG TABLET PO (09:12)
[2018-09-05] MEDS: MULTIVITAMIN 1 TABLET 1 TAB PO (09:12)
[2018-09-05] MEDS: DOCUSATE 100 MG CAPSULE PO (09:12)
[2018-09-05] MEDS: CEFAZOLIN VIAL 3 GM in SODIUM CHLORIDE 0.9% 100 ML IV (09:13)
[2018-09-05] MEDS: ASPIRIN EC 81 MG TABLET PO (09:13)
[2018-09-05] MEDS: CHOLECALCIFEROL (VITAMIN D3) 1,000 UNIT TABLET 2000 UNIT PO (09:13)
[2018-09-05 09:15] VITALS: BP 148/84; PULSE 96; RESP 24; TEMP 36.4; O2SAT 94
[2018-09-05 10:45] LABS: Vancomycin Trough 13.1 ug/mL (10-20)
--- NOTE | 2018-09-05 11:28 | PM.PNPO.1 ---
Subjective Date Patient Seen: 09/05/18 Interval history: Patient seen bedside s/p I&D and poly exchange of R. TKA POD #3. Patient is doing well, she is relatively pain free, and afebrile. Denies N/V, CP, SOB. Denies calf pain. Exam Vital Signs (past 8 hours): - 09/05/18 04:08 09/05/18 09:15 Temperature 97.9 F 97.6 F Pulse Rate 98 H 96 H Respiratory Rate 18 24 Blood Pressure 163/98 H 148/84 H Pulse Oximetry 96 94 Oxygen Delivery Method Room Air Oxygen Flow Rate 0 Narrative Exam Narrative: WDWN NAD A&Ox3. JENNIFER dressing in place on r. knee with some old drainage. Minimal serous drainage in hemovac. Cellulitis in r. calf is improving, non-tender to palpation. NVI in this extremity, ambulating with the aid of a walker. Objective Labs Result Diagrams: 09/03/18 05:02 09/03/18 05:02 Labs: Laboratory Results - last 24 hr 09/04/18 09/05/18 13:40 10:00 Vancomycin Trough 10.4 13.1 Assessment & Plan Post-op Postoperative Procedures Operation Date: 09/02/18 16:30 Actual Procedures Side Surgeon p I&D - S/P,Total Knee Arthroplasty, Poss Poly Exchange Right Fernanda Salazar MD 1. 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 Follow up with [facility] ID clinic on Saturday or . Patient needs to call and make an appointment 2. JENNIFER dressing needs changed prior to discharge. Pull Hemovac at same time. 3. Dispo--pending approval for home IV abx from insurance 4. Follow up in office with Dr. Salazar in 5 days. Quality VTE Deep Vein Thrombosis/Pulmonary Embolism Present on Admission: No
--- NOTE | 2018-09-05 11:31 | P.PN_ITS ---
Subjective Date Patient Seen: 09/05/18 Interval history: Patient seen bedside s/p I&D and poly exchange of R. TKA POD # 3. Patient is doing well, she is relatively pain free, and afebrile. Denies N/ V, CP, SOB. Denies calf pain. Exam Vital Signs (past 8 hours): - 09/05/18 04:08 09/05/18 09:15 Temperature 97.9 F 97.6 F Pulse Rate 98 H 96 H Respiratory Rate 18 24 Blood Pressure 163/98 H 148/84 H Pulse Oximetry 96 94 Oxygen Delivery Method Room Air Oxygen Flow Rate 0 Narrative Exam Narrative: WDWN NAD A&Ox3. JENNIFER dressing in place on r. knee with some old drainage. Minimal serous drainage in hemovac. Cellulitis in r. calf is improving, non-tender to palpation. NVI in this extremity, ambulating with the aid of a walker. Objective Labs Result Diagrams: 09/03/18 05:02 09/03/18 05:02 Labs: Laboratory Results - last 24 hr 09/04/18 09/05/18 13:40 10:00 Vancomycin Trough 10.4 13.1 Assessment & Plan Post-op Postoperative Procedures Operation Date: 09/02/18 16:30 Actual Procedures Side Surgeon p I&D - S/P,Total Knee Arthroplasty, Poss Poly Exchange Right Fernanda Salazar MD 1. 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 Follow up with [facility] ID clinic on Saturday or . Patient needs to call and make an appointment 2. JENNIFER dressing needs changed prior to discharge. Pull Hemovac at same time. 3. Dispo--pending approval for home IV abx from insurance 4. Follow up in office with Dr. Salazar in 5 days. Quality VTE Deep Vein Thrombosis/Pulmonary Embolism Present on Admission: No
[2018-09-05] MEDS: rifAMPin 300 MG CAPSULE PO (11:55)
[2018-09-05] MEDS: CEFTRIAXONE 2 GM/50 ML FROZ.PIGGY IV (11:55)
--- NOTE | 2018-09-05 11:55 | PT.IPTN ---
Current Diagnoses Infection and inflammatory reaction due to internal right knee prosthesis, initial encounter (09/02/18) Surgery Performed Operation Date: 09/02/18 16:30 Actual Procedures p I&D - S/P,Total Knee Arthroplasty, Poss Poly Exchange(Right) - Fernanda Salazar MD Physical Therapy Treatment Note M2 PT-IP Current Condition Start: 09/03/18 11:37 Freq: NEEDED Status: Active Protocol: Document 09/03/18 09:05 (Rec: 09/03/18 12:01 [email or web address]) Physical Therapy Current Condition Current Condition Evaluation Date 09/03/18 Treatment Diagnosis R TKA; difficulty walking Onset Date 09/02/2018 Weight Bearing Status Weight Bearing Status Weight Bear as Tolerated M3 PT-IP Subjective Start: 09/03/18 11:37 Freq: NEEDED Status: Active Protocol: Document 09/05/18 11:55 GGD (Rec: 09/05/18 12:15 GGD [id number]) Subjective Physical Therapy Visit Type Type Treatment Note Visit Start Time 11:30 Visit Stop Time 11:55 Total Visit Minutes 25 Number of SHELLS INSPECTOR Visits 3 Physical Therapy Visit Comments Patient Comments Pt states she doing great and hopes to go home today. Therapy Pain Assessment Pain When Pain Assessed At Rest Pain Present Pain Present Pain Reported Location Right Knee Intensity 1 Scale Used Numeric (1 - 10) M4 PT-IP Mobility and Gait Start: 09/03/18 11:37 Freq: NEEDED Status: Active Protocol: Document 09/05/18 11:55 GGD (Rec: 09/05/18 12:15 GGD [id number]) PT-Transfer Assessment Sit to and From Stand Sit to and from Stand Standby Assistance Use of Upper Extremities Equipment Transfer Assistive Device Gait Belt Straight Cane Orthotic/Prosthetic Devices or Brace: No Transfers Transfer Destination Chair Transfer Ability Level of Assist Independent Gait Assessment Gait Gait Assistance Required: Standby Assistance Distance (Feet) 260 Able to Maintain Weight Bearing Status Yes During Gait Assistive Devices Assistive Device Gait Belt Straight Cane Orthotic/Prosthetic Devices or Brace: No Gait Deviations General Gait Pattern Antalgic Factors Limiting Gait Function Factors Limiting Gait Function Decreased Strength Limited Range of Motion Pain Comments Gait Comments Pt need min cues for gait pattern with SPC. M5 PT-IP Objective Assessments Start: 09/03/18 11:37 Freq: NEEDED Status: Active Protocol: Document 09/03/18 09:05 (Rec: 09/03/18 12:01 [email or web address]) Orientation Orientation/Cognition Level of Alertness Alert Orientation Name Age Birthday Month Date Year Day of Week Place Situation Language Function Ability No Deficits Noted Safety Awareness Decreased Safety Awareness Memory Description No Deficits Noted Gross Range of Motion Lower Extremity ROM Assessment Right Impaired Impairments R knee flexion 70 deg. Knee extension 0 deg Strength Lower Extremity Strength Assessment Right Impaired Hip 3 Knee 3 Ankle 5 Comments Strength Comments RLE WNL Sensation Assessment Sensation Light Touch Intact M6 PT-IP Treatment Start: 09/03/18 11:37 Freq: NEEDED Status: Active Protocol: Document 09/05/18 11:55 GGD (Rec: 09/05/18 12:15 GGD [id number]) Physical Therapy Treatment Exercises Exercises Ankle Pumps Short Arc Quads Seated Knee Flexion/Extension M7 PT-IP Assessment and Plan Start: 09/03/18 11:37 Freq: NEEDED Status: Active Protocol: Document 09/05/18 11:55 GGD (Rec: 09/05/18 12:15 GGD [id number]) PT Summary Assessment and Plan Summary Assessment Summary Pt continues to improve with mobility. She was able to progress gait to SPC without LOB. She improving with ROM and strength. She safe to d/C home when medically stable. Will decrease PT frequency to one time a day due to pt independent with gait with FWW and improvements in ROM. Frequency of Treatment Frequency Of Treatment Once a Day Treatment Plan Other Recommendations and Next Treatment Progress ambulation, stair Focus climbing, progress post-op TKA exercises Recommendations To Nursing Amount of Assist Needed 1 Person Assist Discharge Recommendations PT Discharge Recommendations Home with Assistance Outpatient PT
[2018-09-05 12:15] VITALS: BP 155/93; PULSE 85; RESP 20; TEMP 36.6; O2SAT 93
[2018-09-05 15:20] VITALS: BP 162/89; PULSE 100; RESP 18; TEMP 37.1; O2SAT 96
--- NOTE | 2018-09-05 16:00 | CM.DPC ---
DCP/ Received final IV abx orders. Faxed to [facility] Able to accept patient and see patient tomorrow. Met with patient: patient remains agreeable to discharge home with [facility] and has spouse to transport. Spoke with RN: Concerned one of patient's PO abx, Rifampin, may not be available at pharmacy. Called [facility]: have some on hand and will order additional. Per MD patient to discharge home today. Plan: Discharge home with infusion services.
== END 2018-09-05 17:52 | disposition home or self-care (01) | DRG 486 ==
PROVIDERS: Admitting Provider Orthopaedic Surgery; Visit Provider Orthopaedic Surgery
PROC: 0SRC0JZ Replacement of Right Knee Joint with Synthetic Substitute, Open Approach (ICD-10-PCS; CPT 27447; principal; 2018-09-02 16:30)
DX: T84.53XA Infection and inflammatory reaction due to internal right knee prosthesis, initial encounter (principal); Z68.42 Body mass index [BMI] 45.0-49.9, adult; M65.9 Synovitis and tenosynovitis, unspecified; E66.01 Morbid (severe) obesity due to excess calories; M06.9 Rheumatoid arthritis, unspecified
CPT/HCPCS: 36415; 36569; 80202; 82565; 85025; 87070; 87075; 87077; 87147; 87186; 87205; 87801; 89051; 97110; 97116; 97161; 97530; C1776; J0690; J0696; J1170; J1885; J2250; J2405; J2704; J3010; J3370

== ENCOUNTER 2018-09-13 12:53 | Emergency (ER) | payer OTHER, SELFPAY ==
[2018-09-02 13:54] VITALS: BMI 47.0
[2018-09-13 13:23] VITALS: BP 159/109; PULSE 101; RESP 20; TEMP 36.8; O2SAT 98; BMI 47.0
--- NOTE | 2018-09-13 13:25 | ED.EXTPRO ---
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 she was seen by Orthopedics yesterday and had a fecal drain placed she reports that the people drain has filled up with drainage since yesterday. She called Orthopedics office told her to come the emergency room having dressing change completed. She denies any fevers or chills. She denies any trauma to the knee. She does report increased drainage to the knee over the past several days. She also reports that she has had some increased activity over the past few days that may be contributing to the increased drainage. She is currently taking antibiotics. She denies any trauma to the knee. She denies any increased pain into the knee Related Data Home Medications Medication Instructions Recorded Confirmed calcium carbonate 600 mg PO BID #0 12/30/17 09/02/18 hydrochlorothiazide 25 mg PO QDAY #0 12/30/17 09/02/18 imipramine HCl [Tofranil] 100 mg PO HS #0 12/30/17 09/02/18 losartan 25 mg PO QDAY #0 12/30/17 09/02/18 multivitamin [Multiple Vitamins] 1 tab PO QDAY #0 12/30/17 09/02/18 pramipexole [Mirapex] 0.5 mg PO QDAY #0 12/30/17 09/02/18 ranitidine HCl [Zantac] 150 mg PO HS #0 12/30/17 09/02/18 betamethasone valerate 1 applic TOPICAL TID 09/02/18 09/02/18 cholecalciferol (vitamin D3) 2,000 unit PO DAILY 09/02/18 09/02/18 [Vitamin D3] leflunomide 20 mg PO DAILY 09/02/18 09/02/18 prednisone 20 mg PO DAILY 09/02/18 09/02/18 triamcinolone acetonide 1 applic TOPICAL TID 09/02/18 09/02/18 Previous Rx's Medication Instructions Recorded aspirin 81 mg PO BID #90 01/17/18 hydroxyzine pamoate 25 mg PO Q4HP PRN #40 cap 01/17/18 Allergies Allergy/AdvReac Type Severity Reaction Status Date / Time Benzodiazepines AdvReac Severe R/T HEAD Verified 09/13/18 13:23 [BENZODIAZEPINES] INJURY, TEARING CLOTHES OFF, NO MEMORY X2 DAYS lorazepam [LORAZEPAM] AdvReac Severe ANXIETY Verified 09/13/18 13:23 metoprolol [METOPROLOL] AdvReac Severe DEPRESSION, Verified 09/13/18 13:23 EXTREME FATIGUE lisinopril [LISINOPRIL] AdvReac Intermediate COUGH Verified 09/13/18 13:23 Review of Systems <JOANIE Stiles - Last Filed: 09/13/18 21:28> Constitutional Denies chills, Denies fever(s), Denies lethargy and Denies weakness Eyes Denies change in vision, Denies eye discharge, Denies irritation and Denies loss of vision ENT Ears, Nose, Mouth, and Throat: Denies change in voice, Denies neck pain and Denies sore throat Cardiovascular Denies chest pain, Denies irregular heart rhythm, Denies lightheadedness, Denies palpitations, Denies dyspnea, Denies dyspnea on exertion and Denies orthopnea Respiratory Denies cough, Denies dyspnea, Denies dyspnea on exertion and Denies wheezing Gastrointestinal Gastrointestinal: Denies abdominal pain, Denies change in bowel habits, Denies diarrhea, Denies nausea and Denies vomiting Genitourinary Denies hematuria, Denies flank pain, Denies urinary incontinence and Denies urinary urgency Musculoskeletal Denies neck pain Comments: request dressing change due to increased amount of drainage to surgical site of the right knee Integumentary/Breasts Denies pruritus, Denies erythema, Denies rash and Denies wounds Neurologic Denies confusion, Denies loss of vision and Denies weakness Psychiatric Denies anxiety, Denies confusion, Denies depression, Denies homicidal ideation and Denies suicidal ideation Endocrine Denies palpitations Hematologic/Lymphatic Denies easy bruising Allergic/Immunologic Denies wheezing Exam <JOANIE Stiles - Last Filed: 09/13/18 21:28> Initial Vital Signs Initial Vital Signs: Vital Signs Temperature 98.3 F 09/13/18 13:23 Pulse Rate 101 H 09/13/18 13:23 Respiratory Rate 20 09/13/18 13:23 Blood Pressure 159/109 H 09/13/18 13:23 Pulse Oximetry 98 09/13/18 13:23 Const General: cooperative and well developed Nutritional Appearance: well nourished Orientation: alert, awake, oriented x3 and not confused HENMI Mouth: oral mucosae normal and moist mucous membranes Eyes Conjunctivae: conjunctivae normal Sclera: sclerae normal Pupils: PERRL EOM: EOM intact bilaterally Resp Effort & Inspection: normal respiratory effort, able to speak in complete sentences, no respiratory distress and no use of accessory muscles Auscultation: clear to auscultation bilaterally, no rales, no rhonchi and no wheezes Cardio Rate: regular rate Rhythm: regular rhythm Heart Sounds: no click, no gallops, no murmurs and no rubs Skin General: no rashes or lesions noted, No jaundice and No petechiae Neuro General: alert, oriented x3, gait normal and no focal motor deficits Speech: speech normal Extrem Other: slight swelling to the right knee. Incision site appears to be healing well with no increased erythema. Drainage from the right knee appears to be sanguinous with purulence. distal sensation is intact. Distal range of motion is intact. Distal cap refill less than 2 sec. No increased tenderness to the right knee. Slightly increased temperature on palpation to the right knee. <Conner Melendez DO - Last Filed: 09/15/18 07:07> Initial Vital Signs Initial Vital Signs: Vital Signs Temperature 98.3 F 09/13/18 13:23 Pulse Rate 101 H 09/13/18 13:23 Respiratory Rate 20 09/13/18 13:23 Blood Pressure 159/109 H 09/13/18 13:23 Pulse Oximetry 98 09/13/18 13:23 Course <JOANIE Stiles - Last Filed: 09/13/18 21:28> Vital Signs - 8 hr 09/13/18 14:23 Pulse Rate 103 H Respiratory Rate 22 Blood Pressure 168/104 H Pulse Oximetry 99 <Conner Melendez DO - Last Filed: 09/15/18 07:07> Vital Signs - 8 hr 09/13/18 14:23 Pulse Rate 103 H Respiratory Rate 22 Blood Pressure 168/104 H Pulse Oximetry 99 MDM - Extremity (Nontraumatic) <Lyndon QuintanaJOANIE - Last Filed: 09/13/18 21:28> [facility] Narrative Medical decision making narrative: Discussed case with Dr. Solo on-call orthopedics who recommends do and dressing change at this point to get her through the weekend until she can follow up with the office on Saturday. He states that most likely she will need to go back to the ER operating room. he recommends only dressing change at this point. replacement sam dressing was applied to the right knee. A replacement sam dressing is provided to her as she states that she can do a dressing change tomorrow at home she will follow up with Orthopedics in the the next few days. continue antibiotics as prescribed. for any worsening symptoms return to the emergency room. Discharge Plan Departure Patient Disposition: Home Clinical Impression: Status post total right knee replacement Discharge Date/Time: 09/13/18 14:24 Interventions: ED Discharge Assessment Last Done: 09/13/18 14:23 Instructions: DI for Knee Replacement Activity Restrictions/Additional Instructions: Replacement dressing was placed today. x-ray bandage is provided for dressing change tomorrow. Follow up with Orthopedics here in the next couple days for re-evaluation. Continue taking currently prescribed antibiotics and other medications as directed. for any worsening symptoms return to the emergency room. Prescriptions: No Action hydrochlorothiazide 25 MG tablet 25 mg PO QDAY Qty: 0 RF: 0 imipramine HCl [Tofranil] 50 MG tablet 100 mg PO HS Qty: 0 RF: 0 pramipexole [Mirapex] 0.5 MG tablet 0.5 mg PO QDAY Qty: 0 RF: 0 ranitidine HCl [Zantac] 150 MG tablet 150 mg PO HS Qty: 0 RF: 0 multivitamin [Multiple Vitamins] 1 EACH tablet 1 tab PO QDAY Qty: 0 RF: 0 calcium carbonate 600 MG tablet 600 mg PO BID Qty: 0 RF: 0 losartan 25 MG tablet 25 mg PO QDAY Qty: 0 RF: 0 aspirin 81 MG tablet,delayed release (DR/EC) 81 mg PO BID Qty: 90 RF: 0 hydroxyzine pamoate 25 MG capsule 25 mg PO Q4HP PRNQty: 40 RF: 0 leflunomide 20 mg Tablet 20 mg PO DAILY RF: 0 cholecalciferol (vitamin D3) [Vitamin D3] 2,000 unit Tablet 2,000 unit PO DAILY RF: 0 triamcinolone acetonide 0.5 % cream 1 applic Topical TID RF: 0 prednisone 20 mg tablet 20 mg PO DAILY RF: 0 betamethasone valerate 0.1 % cream 1 applic Topical TID RF: 0 Referrals: Fernanda Salazar MD [Family Provider] - <Conner Melendez DO - Last Filed: 09/15/18 07:07> [facility] ED Attending [employer]gr[employer] Attestation: I was immediately available in the department for consultation. Documentation has been reviewed. I agree with assessment and plan.
--- NOTE | 2018-09-13 14:02 | PC.NURSE ---
Patient comes in with a completely saturated JENNIFER dressing with pump. Pump is functioning properly with green light flashing. She placed a secondary dressing underneath the JENNIFER dressing in order to catch additional drainage. There is a large amount of drainage that is sitting at the bottom of the dressing leaking. Per provider order, replaced JENNIFER dressing and ensured that pump is functioning properly. Patient given a second JENNIFER dressing to replace at home tomorrow, if needed, per Dr. Solo. She and spouse demonstrate understanding of how to change the dressing at home.
[2018-09-13 14:23] VITALS: BP 168/104; PULSE 103; RESP 22; O2SAT 99
== END 2018-09-13 14:24 | disposition home or self-care (01) ==
PROVIDERS: Emergency Provider Nurse Practitioner Family; Family Provider Orthopaedic Surgery
DX: Z48.00 Encounter for change or removal of nonsurgical wound dressing (principal); Z96.651 Presence of right artificial knee joint
CPT/HCPCS: 99282; 99283

== ENCOUNTER 2018-09-16 13:53 | Inpatient (IN) | payer OTHER, MEDICARE, SELFPAY ==
[2018-09-02 13:54] VITALS: BMI 47.0
[2018-09-16] VITALS (11 sets, daily range): BP systolic 100–174; BP diastolic 49–83; PULSE 92–103; RESP 11–20; TEMP 36.6–37; O2SAT 96–100; BMI 47.0
--- NOTE | 2018-09-16 | DI.RAD.S_ITS ---
PROCEDURE: XR KNEE RT 1TO2V INDICATIONS: post operative right knee revision TECHNIQUE: 2 views of the knee were acquired. COMPARISON: [facility], , KNEE 1-2 VIEWS RIGHT, 01/16/2018, 11:14. FINDINGS: Bones: Patient is status post interval removal of previously noted right knee arthroplasty hardware. No gross fracture or dislocation is seen. Alignment of right knee is anatomic. Soft tissues: Skin silvia along anterior aspect of the right knee are seen. Surgical drain is seen in right knee joint. Numerous round radiodensities within right knee joint is seen, suggest clinical correlation. IMPRESSION: Interval removal of right knee arthroplasty hardware with postsurgical changes. Joint effusion and possible antibiotic beads within joint space suggest clinical correlation. No fracture or dislocation. Near-anatomic right knee alignment. Dictated by: Damion Caballero M.D. on 09/17/2018 at 9:01 Approved by: Damion Caballero M.D. on 09/17/2018 at 9:03
[2018-09-16] MEDS: LACTATED RINGERS 1,000 ML 42 ML IV ×5 (14:57→22:06)
--- NOTE | 2018-09-16 14:58 | SUR.PREOP ---
DR DORADO NOTIFIED OF PTS RASH. LEFT UPPER ARM PIC LINE PRESENT WITH TEGADERM DRESSING, INSERTION SITE IS NOT RED OR SWOLLEN, HOWEVER THERE IS TAPE BURN [place] AND SORES UNDER THE TEGADERM DRESSING FROM BEFORE. THERE IS ALSO AREA OF RASH NEAR SITE WHICH IS LIKE RASH ON LOWER EXTREMITIES. PIC LINE FLUSHED EASILY AND IV IS INFUSING WELL, NO C/O PAIN OR SORENESS WITH PIC LINE.
[2018-09-16] MEDS: PREGABALIN 75 MG CAPSULE PO (15:16)
[2018-09-16] MEDS: ACETAMINOPHEN 325 MG TABLET 975 MG PO (15:16)
[2018-09-16] MEDS: MIDAZOLAM 2 MG/2 ML VIAL IV ×2 (15:37→23:10)
[2018-09-16] MEDS: fentaNYL 100 MCG/2 ML INJ IV (15:37)
--- NOTE | 2018-09-16 15:46 | PM.PREOP ---
Pre-operative Note Interval Note Pre-op Check: Yes History & Physical Reviewed by Physician and Yes Exam Performed Changes: Yes H&P completed within 30 days and has changed as indicated here:: worsening body rash over bilateral lower extremities, no new shortness of breath
--- NOTE | 2018-09-16 15:52 | SUR.PREOP ---
1537 Rx given after patient placed on VS monitor and O2 at 2LNP. Spouse present. Patient awake, oriented, very anxious, moving legs back and forth in quick movements. Voiced fears of being unable to breathe. Dr. Serra provided reassurance. 1549 Procedure completed, Patient tolerated it well. Talking, asking appropriate questions. Continues to be on O2 at 2LNP and continuous VS monitor.
--- NOTE | 2018-09-16 15:53 | P.OP_ITS ---
Operative Date/Time/Diagnoses Date of procedure: 09/16/18 Time of procedure: 15:58 Pre-op diagnosis: right knee periprosthetic infection Post-op diagnosis: same Procedure & Clinicians Procedure: revision right total knee arthroplasty with removal of infected prosthesis and placement of an antibiotic spacer Same procedure as scheduled: Yes Surgeon: Fernanda Salazar Paper Colorer: Izzy Green Anesthesia Type: General Operative Notes Findings: infected total knee arthroplasty Closure Type: primary Specimen(s): other ( cultures) Implants & Drains: Biomet antibiotic spacer, antibiotic beads Applied: drain(s) Blood products transfused: none Procedure in detail: The patient was seen in the pre-operative area, where the patient identified the right knee as the operative site and this was marked with my initials. The patient was taken to the operating room and placed on the operative table in the supine position. After satisfactory anesthesia, a daytime caregiver out was performed. Antibiotics were held to allow intraop cultures. The right leg was encircled with a tourniquet about the proximal thigh, and the leg was prepared from the toes to the tourniquet with ChloroPrep in the usual fashion and draped through sterile drapes. The leg was elevated and exsanguinated with elevation and the tourniquet inflated to [250] mmHg pressure. The knee was approached through an approximately 22 cm incision centered over the patella and carried into the knee through a medial the patient's previous parapatellar arthrotomy. The patient's previous incision and arthrotomy was used. There was some breakdown of the tissues and moderate purulent fluid was encountered. Previous surgical sutures were removed. Patient's silvia were removed. The knee capsule was opened. There was severe purulent material. An extensive synovectomy was performed. Soft tissues were meticulously mobilized. There was significant thickening throughout the knee of the soft tissues. The patella component was removed using an oscillating saw. The gutters were re-established with a synovectomy. Polyethylene was removed. The femoral component was densely adherent to the underlying femur bone. Combination of an oscillating saw as well as osteotomes were used to remove the femoral component. Patient had a heavy leg with markedly thickened synovium which was difficult to mobilize. It is quite difficult to remove the femoral component but it was removed without difficulty. I used combination of this soft extensively multiple osteotomes and meticulous dissection. Minimal blow bone loss was encountered distally. Small amount of bone loss was lost in the notch region and along the chance for cuts and. Attempted to specifically removed the femoral component with some flexion because of the patient's previous posterior condylar cuts. After the femur had been removed the femur was carefully checked all bone cement was meticulously removed from the femur. Attention was then directed to the tibia. It is quite difficult to translate the tibia anteriorly. Was able to free the tibia with an oscillating saw under the tibial component using a combination both of positioning in flexion and extension. There was minimal tibial bone loss. I made sure that the tibia was completely free and the cemented broken free from the component in extension. Did additional synovectomy in order to allow anterior subluxation of the tibia but it was still quite difficult. It is difficult to get the tibia adequately anteriorly subluxed she is specially she had a type patellofemoral tendon tendon very heavy leg and grossly thickened subcutaneous tissues. We tried multiple different maneuvers to get the posterolateral tibia free from the femur and eventually were able to do it with a combination of tamps Rachel multiple retractors and maximum effort subluxing the tibia anteriorly. Next the tibial bone was meticulously checked. I removed any residual cement along the tibia specifically removed all the cement from the tibial canal including the base of the stem and used to drill hole as well as multiple curette to meticulously remove any residual cement from the tibia. there was some slight biofilm and softened bone around the proximal tibia. Any inflammatory or necrotic appear in tissue was meticulously removed. Once the femur had been removed made a femoral component on the back table out of antibiotic cement with 2 g of vancomycin and tobramycin. The tibial component was also made. Additional cement was also meticulously removed from the patella including saw to remove any residual cement and we took out the peg holes and drilled around to make sure that the cement had been completely removed from the patella. An attempted trial reduction showed that both the flexion and extension gap were pretty tight with our planned femur and tibial articulated antibiotic spacer. Antibiotic spacer was a 10 but it was clearly too thick. Upon careful examination it was felt that best option was to use the femoral component in order to maintain the femoral spaces and to make a separate thinner tibial component. Antibiotic peds beads were specifically packed into the intramedullary canal of both the femur and the tibia. A small tibial peg was placed in the tibia and made and the antibiotic fairly thin tibial spacer was made. The bone was meticulously irrigated with normal saline and all both femur patella and tibia was checked to make sure that all of the cement had been removed prior to cementing the tibial component. The femoral component was cemented into place with a light coating of cement on the antibiotic spacer. The knee was meticulously irrigated with pulse lavage. The Knee capsule was injected with part of a mixture of 60 ml 0.25% Marcaine mixed with 20 ml Exparel for post operative pain control. The remainder of this mixture was injected into the capsule and subcutaneous tissues during cement curing. we had a venous tourniquet initially and thus the tourniquets was deflated early. It was briefly reinflated during cementing. Hemostasis was obtained with the [Aquamantys system]. A drain was placed and brought out superolaterally. The capsule was closed with interrupted PDS suture. The subcutaneous layer was closed with a limited number of PDS sutures. Skin was closed with a combination of nylon and skin silvia. the surgery was quite extensive because of severe inflammation patient's body habitus and the component was quite adherent to the underlying bone. It was very difficult to mobilize the knee. Antibiotic beads were packed into both inter medullary canals as well as into both gutters. A sam dressing was applied and the patient was taken to recovery having tolerated the procedure well. Complications: none Condition: stable Disposition: Acute Care Plan for aftercare: IV antibiotics for 6 weeks. partial weight-bearing right lower extremity in her knee brace. We will plan to keep her knee in extension with 30? of flexion at most at least for the 1st few weeks postoperatively. She had fairly severe inflammation of her tissues and I think she needs IV antibiotics and rest with limited motion in order to allow wound healing. Partial weight-bearing right lower extremity. She had a rash preoperatively which is either related to her strep infection or possibly her rifampin which were going to discontinue. I spoke to Infectious Disease and will attempt to continue her ceftriaxone for an additional 6 weeks postoperatively.
--- NOTE | 2018-09-16 16:08 | SUR.PREOP ---
Patient handed off to OR staff. Awake and talking. Denies pain. Spouse will bring in CPAP.
[2018-09-16] MEDS: VANCOMYCIN 1,000 MG/200 ML FROZ.PIGGY 200 MG IV (17:20)
[2018-09-16] MEDS: BUPIVACAINE 0.25% W/ EPI VIAL 50 ML INJ (17:29)
[2018-09-16] MEDS: TRANEXAMIC ACID 1,000 MG VIAL 1000 MG INJ ×2 (17:29→21:27)
[2018-09-16] MEDS: BUPIVACAINE LIPOSOME 266 MG/20 ML VIAL INJ (17:41)
[2018-09-16] MEDS: POVIDONE-IODINE 15 ML, SODIUM CHLORIDE 0.9% 250 ML TOP (17:42)
[2018-09-16] MEDS: TOBRAMYCIN 1.2 GM VIAL 7.2 GM INTRA-ARTI (17:45)
[2018-09-16] MEDS: VANCOMYCIN 1,000 MG VIAL 8000 MG TOP (17:48)
--- NOTE | 2018-09-16 19:33 | SUR.OPER ---
240 mg Gentamicin mixed with 1,000mg Vancomycin for implant.
[2018-09-16 20:12] LABS: Hematocrit 26.5 % (36-46); Hemoglobin 8.9 g/dL (12.0-16.0)
[2018-09-16] MEDS: fentaNYL 100 MCG/2 ML INJ 25 MCG IV (22:45)
[2018-09-16] MEDS: HYDROMORPHONE 2 MG INJ 0.5 MG IV ×3 (22:46→23:29)
--- NOTE | 2018-09-16 22:59 | SUR.PHASEI ---
To PACU crying out that her right knee hurts, very anxious. Rx obtained and given, patient positioned on right side as requested w/pillows at back and between knees. hemovac compressed.JENNIFER on, approx 1 of drainage at top of right knee dressing.
--- NOTE | 2018-09-16 23:15 | SUR.PHASEI ---
2310 Rx given as directed by anesthesia. He stated that I could give 4mg Versed, 2mg at a time. Order is not written as such and it would not allow me to add it as a verbal order. Spouse to bedside, sitting w/patient. becoming much calmer with his presence and medication. Denies nausea, ice chips and sip of water given per request. O2 decreased to 2LNP. 2316 desatted to 91\5, O2 turned on at 2LNP. patient resting calmly.
--- NOTE | 2018-09-16 23:35 | SUR.PHASEI ---
Dr Salazar spoke with patient and spouse.
[2018-09-17] VITALS (10 sets, daily range): BP systolic 127–157; BP diastolic 51–77; PULSE 91–109; RESP 16–22; TEMP 36.6–36.9; O2SAT 97–100; BMI 47.0
[2018-09-17] MEDS: OXYCODONE IR 5 MG TABLET PO ×4 (01:30→18:23)
[2018-09-17] MEDS: hydrOXYzine pamoate 25 MG CAPSULE PO ×3 (01:31→18:23)
[2018-09-17] MEDS: LACTATED RINGERS 1,000 ML 125 ML IV ×2 (03:57)
[2018-09-17] MEDS: IBUPROFEN 600 MG TABLET PO ×2 (04:40→12:15)
[2018-09-17 08:00] LABS: Hematocrit 23.6 % (36-46); Hemoglobin 8.1 g/dL (12.0-16.0)
--- NOTE | 2018-09-17 09:13 | CM.DANOTE ---
Addendum entered by Oriana Willard R.N. 09/17/18 14:49: Discussed case in team rounds with Javier Lovell. Confirmed that patient is still getting her home antibiotics via PICC line, and she has been managing with help of [employer]. Original Note: DCP: Case received, EMR reviewed and met with patient. Introduced self and role. DCP template completed with information currently available. Patient is a 67 year old female who admitted yesterday afternoon to the care of the hospitalist team. PCP: Dr. Kwan. Payer: confirmed: [facility]. Patient came to hospital for Right Knee Periprostetic Infection. Originally, last month, had been here for Revision Total Arthroplasty. Originally, patient had been getting antibiotics IV at home. Stated that she had been doing well at home, and doing outpatient physical therapy. Patient mentioned that she had increased drainage from her knee, which is what brought her here. P: DCP to follow, to be determined on progress here in hospital. Will also need to determine if home IV antibiotics will be needed. Oriana Willard RN/Cheese Packer
[2018-09-17] MEDS: CHOLECALCIFEROL (VITAMIN D3) 1,000 UNIT TABLET 2000 UNIT PO (09:30)
[2018-09-17] MEDS: ACETAMINOPHEN 325 MG TABLET 975 MG PO ×3 (09:30→20:05)
[2018-09-17] MEDS: ASPIRIN EC 81 MG TABLET PO ×2 (09:30→20:04)
[2018-09-17] MEDS: CEFTRIAXONE 2 GM/50 ML FROZ.PIGGY IV (09:30)
[2018-09-17] MEDS: DOCUSATE 100 MG CAPSULE PO ×2 (09:33→20:04)
[2018-09-17] MEDS: hydroCHLOROthiazide 25 MG TABLET PO (09:34)
[2018-09-17] MEDS: MULTIVITAMIN 1 TABLET 1 TAB PO (09:34)
[2018-09-17] MEDS: LOSARTAN 25 MG TABLET PO (09:34)
[2018-09-17] MEDS: predniSONE 10 MG TABLET PO (09:34)
--- NOTE | 2018-09-17 10:41 | PT.IIE ---
Addendum entered and electronically signed by Briana Philippe PT 09/17/18 14:21: This is to certify that I have reviewed this documentaion and POC Original Note: Current Diagnoses Infection and inflammatory reaction due to other internal joint prosthesis, initial encounter (09/16/18) Surgery Performed Operation Date: 09/16/18 16:00 Actual Procedures p Total Knee Arthroplasty Revision(Right) - Fernanda Salazar MD Surgical History (Last Updated 09/15/18 @ 16:50 by Jasmin Olea RN) History of incision and drainage (Acute) History of laminectomy (Acute) History of total knee arthroplasty (Acute) Medical History (Last Updated 09/15/18 @ 16:50 by Jasmin Olea RN) Anxiety (Acute) Arthritis (Acute) Back pain (Acute) Depression (Acute) Dermatitis (Acute) Eczema (Acute) GERD (gastroesophageal reflux disease) (Acute) Head injury (Acute ~07/2017) Hypertension (Acute) Impaired fasting glucose (Acute) Impaired vision (Acute) Infection of total right knee replacement (Acute) Long-term use of hydroxychloroquine (Acute) Motion sickness (Acute) Nocturia (Acute) Obesity (Acute) Osteoarthritis (Acute) PVC (premature ventricular contraction) (Acute) Panic attacks (Acute) Postmenopausal (Acute) Rheumatoid arthritis (Acute) Sleep apnea (Acute) Spinal stenosis (Acute) Wart of face (Acute) Physical Therapy Inpatient Evaluation/Re-Eval M1 PT/OT-IP Prior Functional Status Start: 09/17/18 12:27 Freq: NEEDED Status: Active Protocol: Document 09/17/18 10:41 (Rec: 09/17/18 12:50 [email or web address]) Medical Review Prior Functional Status Medical History Reviewed Yes Communication No deficits noted Mobility and Gait Pt typically ambulates short distances using no AD in and out of doors. She states walking endurance is limited to ~5 mins. She uses a grocery cart to lean on to complete shopping. Activities of Daily Living and IADL's Independent with all self care . Pt drives. Prior Functional Level (Other details) Was recently using a fww due to recent R TKA. Had not weaned from that prior to admit for R TKA revision. Social History Household Members spouse Living Arrangements House Number of Floors (Floors) One Floor Number of Stairs To Enter/Railing? 2 steps B rails. Home Environment High Toilet Walk in Shower Home Equipment Front Wheel Walker Shower Seat without Backrest Hand Held Shower Additional Social History Comment Pt also owns Tempurpedic adjustable bed and 2 trekking poles. Pt states able to use very sturdy towel bar to sit <> stand from toilet. Pt understands that we recommend not using towel bar. 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 M2 PT-IP Current Condition Start: 09/17/18 12:27 Freq: NEEDED Status: Active Protocol: Document 09/17/18 10:41 (Rec: 09/17/18 12:50 [email or web address]) Physical Therapy Current Condition Current Condition Evaluation Date 09/17/18 Treatment Diagnosis R TKA revision/infection; difficulty walking Onset Date 09/16/2018 Precautions Other Precautions R knee hinged brace set 0 degrees extension-30 degrees flexion. Brace all times. RLE Partial WB 50#. Weight Bearing Status Weight Bearing Status Partial Weight Bearing Allowed Weight Bearing Amount (enter % RLE 50# or #) (%) M3 PT-IP Subjective Start: 09/17/18 12:27 Freq: NEEDED Status: Active Protocol: Document 09/17/18 10:41 (Rec: 09/17/18 12:50 [email or web address]) Subjective Physical Therapy Visit Type Type Initial Evaluation Visit Start Time 10:41 Visit Stop Time 11:47 Total Visit Minutes 66 Number of CASE WORKER Visits 0 Physical Therapy Visit Comments Patient Comments Pt agreeable to mobilize with PT. Her is present for session and is very FALSE PASS. Patient Goals plans to d/c home SANDY with her . Therapy Pain Assessment Pain When Pain Assessed During Mobility Pain Present Pain Present Pain Reported Location Right Knee Intensity 5 Scale Used Numeric (1 - 10) Pain Management Techniques Apply Cold Elevation Re-positioning Timing of Activity with Medications M4 PT-IP Mobility and Gait Start: 09/17/18 12:27 Freq: NEEDED Status: Active Protocol: Document 09/17/18 10:41 (Rec: 09/17/18 12:50 [email or web address]) PT-Bed Mobility Assessment Supine to Sit Supine to Sit Moderate Assistance 1 Person Assistance Head of Bed Elevated Scooting Scooting to Edge of Bed Standby Assistance PT-Transfer Assessment Sit to and From Stand Sit to and from Stand Maximum Assistance 1 Person Assistance 2 Person Assistance Use of Upper Extremities Equipment Transfer Assistive Device Gait Belt Front Wheeled Walker Orthotic/Prosthetic Devices or Brace: Yes Transfers Transfer Destination Chair Transfer Technique Stand Step Pivot Transfer Ability Level of Assist Maximum Assistance 1 Person Assistance Use of Upper Extremities Comments Mobility Comments Supine <> sit performed modA X1 for trunk control, pt uses UE heavily and uses gait belt to assist leg off bed. Max cues. [id number] is maxAx2 ( and PT) to recliner, max cues to pt and . Pt performs additional sit <> stand with maxAx1 (PT only) and takes 3 steps forward +3steps backward to recliner with a scale to demonstrate 50# WB RLE; pt able to maintain WB 30-40# with maxAx1 and mod cues needed. [id number] returning to bed is maxAX1 with mod cues. (PT only). Gait Assessment Gait Gait Assistance Required: Maximum Assistance 1 Person Assist Distance (Feet) 2 Able to Maintain Weight Bearing Status Yes During Gait Assistive Devices Assistive Device Gait Belt Front Wheeled Walker Orthotic/Prosthetic Devices or Brace: Yes Gait Deviations General Gait Pattern Antalgic Factors Limiting Gait Function Factors Limiting Gait Function Decreased Activity Tolerance Decreased Strength Limited Range of Motion Pain Poor Balance Comments Gait Comments Pt instructed in toe-touch WB and demonstrates 3 steps forward +3 steps back with maxA, mod cues and fww. Pt able to maintain precautions and very fatigued after. PT-Balance Assessment Sitting Balance and Reactions Static Sitting Balance Ability Good Dynamic Sitting Balance Ability Good Standing Balance and Reactions Static Standing Balance Ability Fair Dynamic Standing Balance Ability Poor Device Used fww M5 PT-IP Objective Assessments Start: 09/17/18 12:27 Freq: NEEDED Status: Active Protocol: Document 09/17/18 10:41 (Rec: 09/17/18 12:50 [email or web address]) Orientation Orientation/Cognition Level of Alertness Alert Orientation Name Age Birthday Month Date Year Day of Week Place Situation Language Function Ability No Deficits Noted Safety Awareness Decreased Safety Awareness Comments Pt emotional regarding circumstances. Gross Range of Motion Lower Extremity ROM Assessment Right Impaired Impairments limited by hinged brace and precautions. Strength Lower Extremity Strength Assessment Right Impaired Comments Strength Comments LLE 5/5 grossly. M6 PT-IP Treatment Start: 12/12/18 12:27 Freq: NEEDED Status: Active Protocol: Document 09/17/18 10:41 (Rec: 09/17/18 12:50 [email or web address]) Physical Therapy Treatment Education Education Provided Precautions Weight Bearing Status Post-Op Packet Safety Brace Education Donning Sunray Patient Caregiver Other Treatments Other Treatment Performed Pt education regarding home set up. Recommended bsc, w/c, and ramp for home as well as to rearrange pt living quarters in front room. Pt/ caregiver agree and are given DME list. Began caregiver training, caregiver/ assisted step-pivot transfer with max cues. Also demonstrated gait belt donning /doffing. Additional caregiver training needs to be completed. Demonstrated brace donning/doffing to pt and caregiver. M7 PT-IP Assessment and Plan Start: 09/17/18 12:27 Freq: NEEDED Status: Active Protocol: Document 09/17/18 10:41 (Rec: 09/17/18 12:50 [email or web address]) PT Summary Assessment and Plan Potential Rehabilitation Potential Fair Status of Condition at Evaluation Evolving Summary Impairments Pain ROM Strength Balance Bed Mobility Transfers Gait Activity Tolerance Assessment Summary Pt s/p R TKA revision due to infection with difficulty walking. Pt required 1p assist for bed mobiltiy and stand step pivot transfer with mod to max cues to maintain precautions. Caregiver training needs to be completed prior to d/c. When completed and pt is medically stable, recommend d/c to home wt 24/ 7 assist and HH. Goals Bed Mobility Goal Contact Guard Assistance Transfer Goal Minimal Assistance Front Wheeled Walker Gait Goal Minimal Assistance Front Wheel Walker Gait Distance 5 Other Goals Complete caregiver training including transfers, short distance ambulation (as appropriate), bed mobility and gait belt. Days to Meet Goals 2 Frequency of Treatment Frequency Of Treatment Twice a Day Treatment Plan Physical Therapy Treatment Plan Bed Mobility Training Transfer Training Gait Training Therapeutic Exercise Balance Retraining Post Op Education Discharge Planning Hot or Cold Pack Neuromuscular Re-ed Coordination Retraining Manual Therapy Other Recommendations and Next Treatment Caregiver training. Pt Focus to be here at 3pm Recommendations To Nursing Amount of Assist Needed 2 Person Assist Discharge Recommendations PT Discharge Recommendations Home with 24/7 Assist Home Health Equipment Needed for Home Before ramp, bsc, w/c Discharge
--- NOTE | 2018-09-17 10:55 | P.DS_ITS ---
History of Present Illness Date Patient Seen: 09/17/18 Time Patient Seen: 10:50 Chief complaint: revision total arthroplasty [id number] Narrative: Hospital day 2, postop day 1 following right total knee revision with hardware removal and antibiotic spacer placed by Dr. Salazar. Patient remained stable postoperatively. She is currently on ceftriaxone IV. She has been taking ceftriaxone at home for the past 2 weeks. She does have a PICC line. She is getting antibiotics from [facility]. She is to be on 50 lb weight-bearing to the right leg. She will be fitted for hinged knee brace at 0- 30 degrees. Discharge Providers Date of admission: 09/16/18 13:53 Consults: 09/16/18 14:57 Consult to Respiratory Therapy Evaluate & Treat Comment: Physician Instructions: Evaluate and treat 09/16/18 15:17 Consult to Anesthesiology Routine Comment: Consulting Provider: Anesthesiologist Reason for consultation: Regional block for post operative pain control 09/17/18 00:01 Consult to Discharge Planning Routine Comment: Consult to Respiratory Therapy Evaluate & Treat Comment: Physician Instructions: Evaluate and treat 09/17/18 10:50 Consult to Physical Therapy Evaluate & Treat Comment: Right leg WB 50 lb. Hinged knee brace 0-30 degree Physician Instructions: TRANSFER TRAINING, KNEE BRACE, PWB RIGHT LOWER EXT Discharge provider: Javier Lovell PA-C Exam Vital Signs (past 8 hours): - 09/17/18 03:00 09/17/18 07:13 09/17/18 09:34 Temperature 98.5 F 98.3 F Pulse Rate 98 H 96 H Respiratory Rate 20 20 Blood Pressure 157/74 H 127/71 127/71 Pulse Oximetry 99 100 Oxygen Delivery Method CPAP Oxygen Flow Rate 2 Objective Labs Result Diagrams: 09/17/18 07:40 Labs: Laboratory Results - last 24 hr 09/16/18 09/16/18 09/17/18 19:55 19:55 07:40 Hgb 8.9 L 8.1 L Hct 26.5 L 23.6 L Blood Type A Positive Antibody Screen Negative Discharge Plan Discharge Med Rec/Prescriptions Prescriptions: No Action hydrochlorothiazide 25 MG tablet 25 mg PO QDAY Qty: 0 RF: 0 imipramine HCl [Tofranil] 50 MG tablet 100 mg PO HS Qty: 0 RF: 0 pramipexole [Mirapex] 0.5 MG tablet 0.5 mg PO QDAY Qty: 0 RF: 0 ranitidine HCl [Zantac] 150 MG tablet 150 mg PO HS Qty: 0 RF: 0 multivitamin [Multiple Vitamins] 1 EACH tablet 1 tab PO QDAY Qty: 0 RF: 0 calcium carbonate 600 MG tablet 600 mg PO BID Qty: 0 RF: 0 losartan 25 MG tablet 25 mg PO QDAY Qty: 0 RF: 0 aspirin 81 MG tablet,delayed release (DR/EC) 81 mg PO BID Qty: 90 RF: 0 hydroxyzine pamoate 25 MG capsule 25 mg PO Q4HP PRNQty: 40 RF: 0 cholecalciferol (vitamin D3) [Vitamin D3] 2,000 unit Tablet 2,000 unit PO DAILY RF: 0 triamcinolone acetonide 0.5 % cream 1 applic Topical TID RF: 0 prednisone 20 mg tablet 10 mg PO DAILY RF: 0 betamethasone valerate 0.1 % cream 1 applic Topical PRN PRN (Reason: Rash) RF: 0 leflunomide 20 mg Tablet 20 mg PO DAILY RF: 0 ceftriaxone 2 gram Recon Soln 2 g IV DAILY RF: 0 rifampin 300 mg Capsule 300 mg PO BID RF: 0 Discharge Data Attending Provider: Fernanda Salazar Admit Date/Time: 09/16/18 13:53
--- NOTE | 2018-09-17 11:06 | PM.PNPO.1 ---
Subjective Date Patient Seen: 09/17/18 Time Patient Seen: 11:06 Interval history: Hospital day 2, postop day 1 following right total knee arthroplasty revision with hardware removal and antibiotic spacer placement by Dr. Salazar. Patient this been stable postoperatively. States she did not get much rest last night because of noise and discomfort. Has been up to chair and bathroom. Limited physical therapy. She is to be 50 lb weight-bearing to the right leg. Also have hinged knee brace in place at 0-30 degrees. She does have a PICC line. He has been getting ceftriaxone IV for the past 2 weeks and is to continue on that for 6 weeks postop. Does have a Hemovac in place with 50 mL drainage. Patient is anxious to go home. Lab this morning noted H&H 8.1/23.6. Exam Vital Signs (past 8 hours): - 09/17/18 07:13 09/17/18 09:34 Temperature 98.3 F Pulse Rate 96 H Respiratory Rate 20 Blood Pressure 127/71 127/71 Pulse Oximetry 100 Oxygen Delivery Method CPAP Oxygen Flow Rate 2 Narrative Exam Narrative: Alert, oriented no acute distress resting in bed. Right leg. Lizeth dressing to anterior knee has dried blood throughout most of the dressing but there is still good vacuum. No signs of infection or inflammation of the knee. Hemovac in place with decreased drainage. Hemovac was DC. No calf pain or swelling. Pulses symmetrical. Patient does have a scattered papular erythematous rash to truncal area and legs. This was present before her surgery. Objective Labs Result Diagrams: 09/17/18 07:40 Labs: Laboratory Results - last 24 hr 09/16/18 09/16/18 09/17/18 19:55 19:55 07:40 Hgb 8.9 L 8.1 L Hct 26.5 L 23.6 L Blood Type A Positive Antibody Screen Negative Assessment & Plan Post-op Postoperative Procedures Operation Date: 09/16/18 16:00 Actual Procedures Side Surgeon p Total Knee Arthroplasty Revision Right Fernanda Salazar MD Plan: Patient was anxious to go home today. I did receive a phone call from Dr. Salazar who recommended the patient stay 1 more day to allow for further observation and physical therapy. Patient was emotionally upset about this and crying but agreeable to stay. Her hinged knee brace is being fitted by physical therapy and locked at 0-30 degrees. She will be 50 lb weight-bearing to the lower right leg. Will start patient on ferrous gluconate and vitamin-C. Recheck H&H in the morning. Patient to be on ceftriaxone 6 weeks postop. Anticipate discharge home tomorrow if she is stable. Will increase her oxycodone up to 10 mg as needed.
[2018-09-17] MEDS: FERROUS GLUCONATE 324 MG TABLET PO ×2 (12:14→20:04)
[2018-09-17] MEDS: ASCORBIC ACID 500 MG TABLET PO ×2 (12:14→20:04)
--- NOTE | 2018-09-17 16:50 | PT.IPTN ---
Current Diagnoses Infection and inflammatory reaction due to other internal joint prosthesis, initial encounter (09/16/18) Surgery Performed Operation Date: 09/16/18 16:00 Actual Procedures p Total Knee Arthroplasty Revision(Right) - Fernanda Salazar MD Physical Therapy Treatment Note M2 PT-IP Current Condition Start: 09/17/18 12:27 Freq: NEEDED Status: Active Protocol: Document 09/17/18 10:41 (Rec: 09/17/18 12:50 [email or web address]) Physical Therapy Current Condition Current Condition Evaluation Date 09/17/18 Treatment Diagnosis R TKA revision/infection; difficulty walking Onset Date 09/16/2018 Precautions Other Precautions R knee hinged brace set 0 degrees extension-30 degrees flexion. Brace all times. RLE Partial WB 50#. Weight Bearing Status Weight Bearing Status Partial Weight Bearing Allowed Weight Bearing Amount (enter % RLE 50# or #) (%) M3 PT-IP Subjective Start: 09/17/18 12:27 Freq: NEEDED Status: Active Protocol: Document 09/17/18 16:39 SA (Rec: 09/17/18 16:50 SA [id number]) Subjective Physical Therapy Visit Type Type Treatment Note Visit Start Time 14:45 Visit Stop Time 15:09 Total Visit Minutes 24 Number of VALUE STREAM COACH Visits 1 Physical Therapy Visit Comments Patient Comments Pt tired but agreeable to PT, not available for caregiver training as he is getting equipment needed for home and pt d/c. Therapy Pain Assessment Pain When Pain Assessed During Mobility Pain Present Pain Present Pain Reported Location Right Knee Intensity 4 Scale Used Numeric (1 - 10) Pain Management Techniques Apply Cold Elevation Re-positioning Timing of Activity with Medications M4 PT-IP Mobility and Gait Start: 09/17/18 12:27 Freq: NEEDED Status: Active Protocol: Document 09/17/18 16:39 SA (Rec: 09/17/18 16:50 SA [id number]) PT-Transfer Assessment Sit to and From Stand Sit to and from Stand Minimal Assistance 1 Person Assistance Use of Upper Extremities Equipment Transfer Assistive Device Gait Belt Front Wheeled Walker Orthotic/Prosthetic Devices or Brace: Yes Transfers Transfer Destination Chair Transfer Technique Stand Step Pivot Transfer Ability Level of Assist Minimal Assistance 1 Person Assistance Use of Upper Extremities Comments Mobility Comments Pt understands and is able to maintain 50# WBing precaution with standing and transfers. Stand pivot tx BSC<>Chair with CGA-Min A and Min cues. Completed repeated sit to stands 4x with Mod cues and CGA. Gait Assessment Gait Gait Assistance Required: Moderate Assistance 1 Person Assist Distance (Feet) 2 Able to Maintain Weight Bearing Status Yes During Gait Assistive Devices Assistive Device Gait Belt Front Wheeled Walker Orthotic/Prosthetic Devices or Brace: Yes Gait Deviations General Gait Pattern Antalgic Factors Limiting Gait Function Factors Limiting Gait Function Decreased Activity Tolerance Decreased Strength Limited Range of Motion Pain Poor Balance Comments Gait Comments Pt able to demonstrate TTWB and maintain it with gait and transfers but fatigues rapidly . Making arrangements for d/c home with use of WC in home and out. M5 PT-IP Objective Assessments Start: 09/17/18 12:27 Freq: NEEDED Status: Active Protocol: Document 09/17/18 10:41 (Rec: 09/17/18 12:50 [email or web address]) Orientation Orientation/Cognition Level of Alertness Alert Orientation Name Age Birthday Month Date Year Day of Week Place Situation Language Function Ability No Deficits Noted Safety Awareness Decreased Safety Awareness Comments Pt emotional regarding circumstances. Gross Range of Motion Lower Extremity ROM Assessment Right Impaired Impairments limited by hinged brace and precautions. Strength Lower Extremity Strength Assessment Right Impaired Comments Strength Comments LLE 5/5 grossly. M6 PT-IP Treatment Start: 09/17/18 12:27 Freq: NEEDED Status: Active Protocol: Document 09/17/18 16:39 SA (Rec: 09/17/18 16:50 [id number]) Physical Therapy Treatment Exercises Exercises Ankle Pumps Quad Sets Heel Slides Education Education Provided Precautions Weight Bearing Status Post-Op Packet Safety Brace Education [employer] [place] Patient Caregiver Equipment Issued Equipment Type and Company Pt states is setting up ramp for 2 steps to enter home, WC being purchased today as well as elevated toilet seat. Other Treatments Other Treatment Performed Continued education for preparation for d/c home, equipment needs safe use of FWW with mobility. M7 PT-IP Assessment and Plan Start: 09/17/18 12:27 Freq: NEEDED Status: Active Protocol: Document 09/17/18 16:39 SA (Rec: 09/17/18 16:50 [id number]) PT Summary Assessment and Plan Potential Rehabilitation Potential Fair Status of Condition at Evaluation Stable Summary Assessment Summary Pt progressing to Min A with x 1 person with staff and demonstrates good ability to maintain WBing status. Fatigues rapidly, cues for safe technique. Goals Other Goals Pt not present for caregiver training this afternoon. Frequency of Treatment Frequency Of Treatment Twice a Day Recommendations To Nursing Amount of Assist Needed 1 Person Assist Discharge Recommendations PT Discharge Recommendations Home with 29/04 Assist Home Health
[2018-09-17] MEDS: CALCIUM CARBONATE 500 MG TAB PO (18:23)
[2018-09-17] MEDS: ONDANSETRON 4 MG/2 ML INJ IV (18:53)
[2018-09-17] MEDS: IMIPRAMINE HCL 25 MG TABLET 100 MG PO (20:04)
[2018-09-17] MEDS: PRAMIPEXOLE 0.25 MG TABLET 0.5 MG PO (20:05)
--- NOTE | 2018-09-17 21:31 | PC.NURSE ---
anxiety/restless pt has been very emotional throughout shift. crying over and over r/t needing to stay the night in hospital and just want to go home. Has wanted staff in with her frequently through the shift for various needs. Discussed pt's anxiety with her. states has taken Ativan in the past but it made her agitated. encouraged to voice needs. Attempts to console pt have been minimally effective.
[2018-09-18] MEDS: OXYCODONE IR 5 MG TABLET PO ×3 (00:28→12:01)
[2018-09-18] MEDS: ONDANSETRON 4 MG/2 ML INJ IV (00:28)
[2018-09-18 01:24] VITALS: BP 163/77; PULSE 115; RESP 20; TEMP 37.1; O2SAT 100
[2018-09-18 04:08] VITALS: TEMP 38.3
[2018-09-18] MEDS: IBUPROFEN 600 MG TABLET PO (04:08)
[2018-09-18 04:11] VITALS: BP 166/85; PULSE 122; RESP 20; TEMP 38.3; O2SAT 100
--- NOTE | 2018-09-18 04:15 | PC.NURSE ---
Pt A&Ox3. R. knee brace on. dressing intact and saturated, not leaking. pt c/o of nausea w/ her previous dose of percolone, administered zofran w/her pain med. pt also had a temp of 101.0 this morning. medicated pt w/advil. 1PA to the BSC. call light in reach. bed alarm active.
[2018-09-18] MEDS: ONDANSETRON 4 MG ODT PO ×2 (04:27→12:01)
[2018-09-18 05:28] VITALS: TEMP 37.5
[2018-09-18 07:40] VITALS: BP 139/58; PULSE 96; RESP 20; TEMP 36.8; O2SAT 95
--- NOTE | 2018-09-18 07:57 | PM.DS.1 ---
History of Present Illness Date Patient Seen: 09/18/18 Time Patient Seen: 07:30 Chief complaint: revision total arthroplasty [id number] Narrative: Patient seen bedside s/p removal of hardware for infected right total knee arthroplasty. Patient is POD #2. Her rash is resolving but her JENNIFER dressing is still saturated. Patient states that it has been like that since surgery. No fevers, chills, N/V, or cough. Discharge Providers Date of admission: 09/16/18 13:53 Consults: 09/16/18 14:57 Consult to Respiratory Therapy Evaluate & Treat Comment: Physician Instructions: Evaluate and treat 09/16/18 15:17 Consult to Anesthesiology Routine Comment: Consulting Provider: Anesthesiologist Reason for consultation: Regional block for post operative pain control 09/17/18 00:01 Consult to Discharge Planning Routine Comment: Consult to Respiratory Therapy Evaluate & Treat Comment: Physician Instructions: Evaluate and treat 09/17/18 10:50 Consult to Physical Therapy Evaluate & Treat Comment: Right leg WB 50 lb. 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 total knee revision with removal of hardware and cement spacer placement on 09/16/18. Patient tolerated the procedure well and was transitioned to the acute care floor. Her outpatient antibiotics were continued. She was seen by PT and cleared for discharge home. She was stable and ready for discharge on 09/18/18. She may be partial weightbearing on the right leg and must wear her brace at all times. Brace should be locked from 0-30 degrees. Follow up in 5-[address] Salazar. Status at Discharge Cognitive/behavioral status at discharge: Alert and oriented x4 Functional status at discharge: uses cane/walker Overall status at discharge: patient is progressing back to baseline Time Spent with Patient Less than 30 minutes Exam Vital Signs (past 8 hours): - 09/18/18 01:24 09/18/18 04:08 09/18/18 04:11 Temperature 98.7 F 101.0 F H 101.0 F H Pulse Rate 115 H 122 H Respiratory Rate 20 20 Blood Pressure 163/77 H 166/85 H Pulse Oximetry 100 100 09/18/18 05:28 Temperature 99.5 F Pulse Rate Respiratory Rate Blood Pressure Pulse Oximetry Oxygen Delivery Method CPAP Oxygen Flow Rate 0 Narrative Exam Narrative: WDWN NAD A&Ox3. Dressing is saturated but blood appears old. Minimal erythema and edema. Resolving petechial rash still present. Calf is soft and compressible. Objective Labs Result Diagrams: 09/17/18 07:40 Labs: Laboratory Results - last 24 hr 09/17/18 07:40 Hgb 8.1 L Hct 23.6 L Discharge Plan Discharge Plan Patient Disposition: Home Discharge Med Rec/Prescriptions Prescriptions: New ascorbic acid (vitamin C) [Vitamin C] 500 mg Tablet 500 mg PO BID Qty: 0 RF: 0 docusate sodium 100 mg Capsule 100 mg PO BID Qty: 0 RF: 0 ferrous gluconate 324 mg (38 mg iron) Tablet 324 mg PO BID Qty: 0 RF: 0 Continue hydrochlorothiazide 25 MG tablet 25 mg PO QDAY Qty: 0 RF: 0 imipramine HCl [Tofranil] 50 MG tablet 100 mg PO HS Qty: 0 RF: 0 pramipexole [Mirapex] 0.5 MG tablet 0.5 mg PO QDAY Qty: 0 RF: 0 ranitidine HCl [Zantac] 150 MG tablet 150 mg PO HS Qty: 0 RF: 0 multivitamin [Multiple Vitamins] 1 EACH tablet 1 tab PO QDAY Qty: 0 RF: 0 calcium carbonate 600 MG tablet 600 mg PO BID Qty: 0 RF: 0 losartan 25 MG tablet 25 mg PO QDAY Qty: 0 RF: 0 aspirin 81 MG tablet,delayed release (DR/EC) 81 mg PO BID Qty: 90 RF: 0 hydroxyzine pamoate 25 MG capsule 25 mg PO Q4HP PRNQty: 40 RF: 0 leflunomide 20 mg Tablet 20 mg PO DAILY RF: 0 ceftriaxone 2 gram Recon Soln 2 g IV DAILY RF: 0 rifampin 300 mg Capsule 300 mg PO BID RF: 0 No Action cholecalciferol (vitamin D3) [Vitamin D3] 2,000 unit Tablet 2,000 unit PO DAILY RF: 0 triamcinolone acetonide 0.5 % cream 1 applic Topical TID RF: 0 prednisone 20 mg tablet 10 mg PO DAILY RF: 0 betamethasone valerate 0.1 % cream 1 applic Topical PRN PRN (Reason: Rash) RF: 0 Follow up/Referrals: Fernanda Salazar MD [Family Provider] - (Follow up in office in 5-7 days. Call to make an appointment.) Provider Discharge Instructions Diet: Diet as Tolerated Activity: Partial weightbearing, use brace at all times. Keep brace locked from 0-30 degrees. Cold/Heat Therapy: Apply ice 20 minutes at a time at least hourly as needed while awake. Skin/Wound/Dressing Care Report to your healthcare provider any signs of infection, such as:: chills, fever, night sweats, increased pain, unusual drainage and unusual redness Dressing: Keep dressing clean dry and intact until follow up appointment. Visit Report/Discharge Packet Instructions: DI for Knee Replacement, DI for Bone and Joint Infections Visit Report Forms: Stroke Signs & Symptoms Discharge Data Attending Provider: Fernanda Salazar Admit Date/Time: 09/16/18 13:53 Discharges patient from system. Discharge Date/Time: 09/18/18 14:50
[2018-09-18] MEDS: DOCUSATE 100 MG CAPSULE PO (12:02)
[2018-09-18] MEDS: LOSARTAN 25 MG TABLET PO (12:02)
[2018-09-18] MEDS: MULTIVITAMIN 1 TABLET 1 TAB PO (12:02)
[2018-09-18] MEDS: FERROUS GLUCONATE 324 MG TABLET PO (12:02)
[2018-09-18] MEDS: hydroCHLOROthiazide 25 MG TABLET PO (12:02)
[2018-09-18] MEDS: CHOLECALCIFEROL (VITAMIN D3) 1,000 UNIT TABLET 2000 UNIT PO (12:02)
[2018-09-18] MEDS: predniSONE 10 MG TABLET PO (12:02)
[2018-09-18] MEDS: ACETAMINOPHEN 325 MG TABLET 975 MG PO (12:03)
[2018-09-18] MEDS: ASCORBIC ACID 500 MG TABLET PO (12:03)
[2018-09-18] MEDS: ASPIRIN EC 81 MG TABLET PO (12:03)
[2018-09-18] MEDS: CEFTRIAXONE 2 GM/50 ML FROZ.PIGGY IV (12:04)
[2018-09-18 12:05] VITALS: BP 142/64; PULSE 105; RESP 22; TEMP 36.8; O2SAT 100
--- NOTE | 2018-09-18 12:17 | PC.NURSE ---
Wound Ostomy Nurse Consult Note Recieved a phone call from MeshaQuincy's nurse Beth. Beth states that JENNIFER negative pressure dressing is saturated with old pooling blood. She states that the [facility] did come in to see the patient this morning and said to change the dressing. Beth said that there was so much drainage that the baldomero-wound is macerated and denuded. I asked if she took pictures and she said she did. I instructed her to not replace the JENNIFER dressing, since Beth has observed that there is not a big enough JENNIFER dressing to cover over the denuded baldomero-wound. I also agreed with Beth that the JENNIFER would not be a good choice of dressing if the wound is infected. Beth has called down to the OR and both Dr. Salazar and the [facility] are currently working on a case. Beth did speak to the OR nurse and will have call when she is finished with the OR case. I instructed Beth to use gauze moistened with normal saline to fill the wound and then an ADB or gauze pad then kerlix or roll gauze to secure the ADB until or Shayna can observe the wound. I did discuss this with Dr. Morgan and he agrees that the JENNIFER should be held until can observe the wound.
--- NOTE | 2018-09-18 12:23 | PT.IPTN ---
Current Diagnoses Infection and inflammatory reaction due to other internal joint prosthesis, initial encounter (09/16/18) Surgery Performed Operation Date: 09/16/18 16:00 Actual Procedures p Total Knee Arthroplasty Revision(Right) - Fernanda Salazar MD Physical Therapy Treatment Note M2 PT-IP Current Condition Start: 09/17/18 12:27 Freq: NEEDED Status: Active Protocol: Document 09/17/18 10:41 (Rec: 09/17/18 12:50 [email or web address]) Physical Therapy Current Condition Current Condition Evaluation Date 09/17/18 Treatment Diagnosis R TKA revision/infection; difficulty walking Onset Date 09/16/2018 Precautions Other Precautions R knee hinged brace set 0 degrees extension-30 degrees flexion. Brace all times. RLE Partial WB 50#. Weight Bearing Status Weight Bearing Status Partial Weight Bearing Allowed Weight Bearing Amount (enter % RLE 50# or #) (%) M3 PT-IP Subjective Start: 09/17/18 12:27 Freq: NEEDED Status: Active Protocol: Document 09/18/18 12:16 SA (Rec: 09/18/18 12:23 SA [email or web address]) Subjective Physical Therapy Visit Type Type Treatment Note Visit Start Time 10:05 Visit Stop Time 10:20 Total Visit Minutes 15 Number of GRAZING AIDE Visits 2 Physical Therapy Visit Comments Patient Comments Pt tired and just got back to bed, dclines getting OOB. Patient Goals Hopes to d/c home with this afternoon. Therapy Pain Assessment Pain When Pain Assessed At Rest Pain Present Pain Present Denied Pain M4 PT-IP Mobility and Gait Start: 09/17/18 12:27 Freq: NEEDED Status: Active Protocol: Document 09/18/18 12:16 SA (Rec: 09/18/18 12:23 SA [email or web address]) PT-Bed Mobility Assessment Rolling Type of Rolling Bilateral Level of Assist Minimal Assistance Scooting Scooting Up and Down in Bed Moderate Assistance PT-Transfer Assessment Comments Mobility Comments Discussed WBing precautions and mobility in the home. Pt states ramp is in place for entering home and removed door to bathroom so she should be able to access bathroom with WC. Pt is kiana to get home and confident she will be able to maintain WBing precaution and mobilize in home safely. is providing care. M5 PT-IP Objective Assessments Start: 09/17/18 12:27 Freq: NEEDED Status: Active Protocol: Document 12/12/18 10:41 (Rec: 09/17/18 12:50 [email or web address]) Orientation Orientation/Cognition Level of Alertness Alert Orientation Name Age Birthday Month Date Year Day of Week Place Situation Language Function Ability No Deficits Noted Safety Awareness Decreased Safety Awareness Comments Pt emotional regarding circumstances. Gross Range of Motion Lower Extremity ROM Assessment Right Impaired Impairments limited by hinged brace and precautions. Strength Lower Extremity Strength Assessment Right Impaired Comments Strength Comments LLE 5/5 grossly. M6 PT-IP Treatment Start: 09/17/18 12:27 Freq: NEEDED Status: Active Protocol: Document 09/18/18 12:16 SA (Rec: 09/18/18 12:23 SA [email or web address]) Physical Therapy Treatment Exercises Exercises Ankle Pumps Quad Sets Heel Slides Education Education Provided Precautions Weight Bearing Status Post-Op Packet Safety Brace Education [employer] [place] Patient Caregiver Equipment Issued Equipment Type and Company Pt has WC, ramp to enter home, elevated toilet seat and grab bars in bathroom as of this morning. has been getting home set up. M7 PT-IP Assessment and Plan Start: 09/17/18 12:27 Freq: NEEDED Status: Active Protocol: Document 09/18/18 12:16 SA (Rec: 09/18/18 12:23 SA [email or web address]) PT Summary Assessment and Plan Potential Rehabilitation Potential Fair Status of Condition at Evaluation Stable Summary Assessment Summary Pt ready to d/c home with , declined getting OOB this AM with this GRAZING AIDE, d/t being tired and stating she has been getting up/down all morning and feels confident with transfer ability and safety. Frequency of Treatment Frequency Of Treatment Twice a Day Recommendations To Nursing Amount of Assist Needed 1 Person Assist Discharge Recommendations PT Discharge Recommendations Home with 29/04 Assist Home Health
--- NOTE | 2018-09-18 15:02 | PC.NURSE ---
discharge Dressing was saturated this AM, notified PA and order obtained to change JENNIFER dressing. [place] drainage was pooled at base of dressing. When dressing removed, skin breakdown observed distal to incision. one patch was 1.5x3.5 cm and one patch was about 1.5x1.5 cm. Pictures taken and placed in chart. unsure how to redress wound as JENNIFER dressing would not cover entire incision and excoriation. Spoke with Wound RN and awaiting new orders from MD, placed 4x4 and abd pads on wound. MD arrived on floor and placed JENNIFER dressing on wound herself. PICC line remained in pt as she is getting home IV Abx. Pt states she took all belongings home with her. D/c instructions provided to pt and her . Aware to contact MD's office in AM to schedule f/u apt with . Also aware to contact MD with any additional questions or concerns. Pt left in w/c with NICK escort.
== END 2018-09-18 14:50 | disposition home or self-care (01) | DRG 464 ==
PROVIDERS: Admitting Provider Orthopaedic Surgery; Family Provider Orthopaedic Surgery; Visit Provider Orthopaedic Surgery
PROC: 0SPC0JZ Removal of Synthetic Substitute from Right Knee Joint, Open Approach (ICD-10-PCS; principal; 2018-09-16 16:00)
DX: T84.53XA Infection and inflammatory reaction due to internal right knee prosthesis, initial encounter (principal); Z68.42 Body mass index [BMI] 45.0-49.9, adult; M06.9 Rheumatoid arthritis, unspecified; F32.9 Major depressive disorder, single episode, unspecified; E66.01 Morbid (severe) obesity due to excess calories; G47.33 Obstructive sleep apnea (adult) (pediatric); I10 Essential (primary) hypertension; F41.9 Anxiety disorder, unspecified
CPT/HCPCS: 64450; 73560; 85014; 85018; 86850; 86900; 86901; 87070; 87075; 87205; 97163; 97530; C1776; C9290; J0696; J1100; J1170; J2250; J2405; J2704; J3010; J3370

== ENCOUNTER → 2018-12-03 15:50 | Outpatient (REF) | payer OTHER, SELFPAY ==
[2018-09-17 01:36] VITALS: BMI 47.0
[2018-12-03 16:22] LABS: Body Fluid Color RED
[2018-12-03 16:23] LABS: Body Fluid Appearance SLIGHTLY CLOUDY; Body Fluid Clotted? NO CLOTS PRESENT
[2018-12-03 16:47] LABS: Body Fluid Red Blood Cells 49085 /uL; Body Fluid Tot Nucleated Cells 567 /uL
[2018-12-03 17:24] LABS: Eosinophils Body Fluid 2 %; Mononuclear WBC Body Fluid 69 %; Other Cells Body Fluid 0 %; Polynuclear WBC Body Fluid 29 %
== END ==
LOC: LAB 15:50
PROVIDERS: Family Provider Orthopaedic Surgery; Visit Provider Orthopaedic Surgery
DX: Z96.651 Presence of right artificial knee joint (principal)
CPT/HCPCS: 87070; 87075; 87205; 89051

== ENCOUNTER 2018-12-25 10:39 | Inpatient (IN) | payer OTHER, MEDICARE, SELFPAY ==
[2018-09-17 01:36] VITALS: BMI 47.0
[2018-12-17 14:41] VITALS: BMI 48.6
[2018-12-25] VITALS (14 sets, daily range): BP systolic 128–179; BP diastolic 55–96; PULSE 93–111; RESP 11–20; TEMP 36.2–37.3; O2SAT 91–100; BMI 47.6
--- NOTE | 2018-12-25 06:00 | DI.RAD.S_ITS ---
PROCEDURE: XR KNEE RT 1TO2V INDICATIONS: prosthesis placement TECHNIQUE: 2 view(s) of the knee acquired. COMPARISON: Merged With [facility], CR, XR KNEE RT 1TO2V, 09/16/2018, 23:46. FINDINGS: Bones: Patient is status post knee joint arthroplasty. Hardware components are in expected positions. Visualized bony structures are intact. Soft tissues: Overlying postoperative changes are noted. A soft tissue drain is noted. IMPRESSION: Status post right total knee arthroplasty without acute hardware complication. Dictated by: Warren Romo M.D. on 12/25/2018 at 19:00 Approved by: Warren Romo M.D. on 12/25/2018 at 19:01
[2018-12-25] MEDS: VANCOMYCIN 1,000 MG/200 ML FROZ.PIGGY 200 MG IV (11:25)
[2018-12-25] MEDS: LACTATED RINGERS 1,000 ML 42 ML IV ×2 (11:25→16:30)
[2018-12-25] MEDS: ACETAMINOPHEN 325 MG TABLET 975 MG PO ×2 (12:05→21:49)
[2018-12-25] MEDS: PREGABALIN 75 MG CAPSULE PO (12:05)
[2018-12-25] MEDS: CELECOXIB 200 MG CAPSULE PO (12:05)
[2018-12-25] MEDS: GENTAMICIN 200 MG in SODIUM CHLORIDE 0.9% 100 ML 105 ML IV (13:10)
[2018-12-25] MEDS: BUPIVACAINE LIPOSOME 266 MG/20 ML VIAL INJ (14:27)
[2018-12-25] MEDS: BUPIVACAINE 0.25% W/ EPI 50 ML VIAL INJ (14:27)
[2018-12-25] MEDS: POVIDONE-IODINE 15 ML, SODIUM CHLORIDE 0.9% 250 ML TOP (15:52)
[2018-12-25] MEDS: VANCOMYCIN 1,000 MG VIAL 1000 MG TOP (16:03)
--- NOTE | 2018-12-25 18:35 | PM.PREOP ---
Pre-operative Note Interval Note History & Physical reviewed/Exam performed by Physician: No Changes to H&P: No H&P completed within 30 days and has changed as indicated here:: lungs clear, cor rrr, skin doing much better, knee benign, decreased rom,
--- NOTE | 2018-12-25 18:36 | PM.OP.1 ---
Operative Date/Time/Diagnoses Date of procedure: 12/25/18 Time of procedure: 12:36 Pre-op diagnosis: right knee antibiotic spacer Post-op diagnosis: same Procedure & Clinicians Procedure: revision right total knee arthroplasty Same procedure as scheduled: Yes Indications: This is a 68-year-old female with rheumatoid arthritis who is on dmar medications who ultimately developed a right knee periprosthetic joint infection. She underwent an antibiotic spacer and has been infection-free with improvement in her inflammatory markers for at least 2 months. Cultures were negative. She is brought the operating room for second-stage revision knee arthroplasty. Surgeon: Fernanda Salazar Mechanical Unit Repairer: Nito Goldsmith Anesthesia Type: General and Spinal Operative Notes Findings: Loosening of the Biomet spacer, no evidence of active infection, good stability of the prosthesis, adequate tibial and femoral bone stock. Closure Type: primary Specimen(s): other (cultures and PCR) Prosthetic devices, grafts, tissues, transplants, or devices: legion size 6 femur, 4mm off set, 5mm distal augments medial and lateral, [id number] cemented stem, size 5 tibia, 14x 120 stem, +9 poly, 35 x 7.5 patella Applied: drain(s) Estimated Blood Loss (mL): 300 Blood products transfused: none Tourniquet time (min): 92 Procedure in detail: The patient was seen in the pre-operative area, where the patient identified the right knee as the operative site and this was marked with my initials. The patient received pre-operative antibiotics, and was taken to the operating room and placed on the operative table in the supine position. After satisfactory anesthesia, a radio time salesperson out was performed. The right leg was encircled with a tourniquet about the proximal thigh, and the leg was prepared from the toes to the tourniquet with ChloroPrep in the usual fashion and draped through sterile drapes. The leg was elevated and exsanguinated with Eschmark bandage and the tourniquet inflated 250 mmHg pressure. The knee was approached through an approximately 24 cm incision centered over the patella and carried into the knee through a medial parapatellar arthrotomy. The quad snip was performed proximally in order to allow mobilization of the patellar tendon. Both the medial and lateral gutter were meticulously freed of soft tissue. Soft tissue was carefully cleared around the patella and the patella was carefully mobilized. The patellar tendon insertion in the tibia appeared competent. The distal femoral spacer was noted to be loose. It was carefully removed without difficulty. An extensive synovectomy was performed as well as removing all potential bile film from the patella the distal and the distal femur. Gentle assessment of the ligaments showed that both the medial collateral and lateral collateral ligament appeared to be competent. The patella was carefully mobilized as was the proximal tibia and gently releasing medially to about the midportion of the tibia. The tibial spacer was removed without difficulty. All potential biofilm was carefully removed from the proximal tibia as well as the small keel region in the proximal tibia. The tibia was then prepped for a stem. A 1 mm cleanup cut was performed. There did appear to be adequate proximal tibia and actually surprisingly hard bone posteriorly in the region of the keel. There was not a large proximal metaphyseal defect and it was of felt that the patient was an appropriate candidate for a cemented tibial stem component without a sleeve. Final tibia tibial preparation was performed. The femur was then prepped by placing an injury inter medullary dacia putting the component over the inter medullary dacia looked like appropriate for 6 femur. Based on that it looked like we would probably need about 4 mm offset. We then reamed the canal in preparation for a 4 mm offset. The femur was prepped up to a size 16 stem. I checked the external rotation specifically and it appeared appropriate and it did not look like we were going to notch the distal femur. The trial was pinned to the tibia and I did 5 mm cuts on the distal femur which did provide an adequate distal femoral surface both medially and laterally. The patient did not need additional cuts for chain for cuts or a posterior tibial clean-up cut looked like it was well position posteriorly. Checked the extension gap flexion gap range of motion. The box was finished for the final component. Trial reduction showed good range of metal at motion and stability with the +9 stabilized component. The rotation was assessed. She had good range of motion and good stability. The patient's patella was carefully debrided and previous drill holes were deepened and a small amount of bone was resected in order to give a smooth surface. There was acceptable tracking of the patella. Hemostasis was achieved especially posteriorly. The posterior capsule was injected with part of a mixture of 60 ml 0.25% Marcaine mixed with 20 ml Exparel for post operative pain control. The remainder of this mixture was injected into the capsule and subcutaneous tissues during cement curing. Range of motion was [0-130], with good stability throughout the range. The trials were then removed, and the tibia was finished. The bone was prepared with pulsatile lavage, and dried with a sponge. Cement was applied and the final prosthetics placed. Excess cement was removed during and after cement curing. A brief Betadine soak was performed. After confirming there was no extruded cement posteriorly, the final tibial insert was placed. The knee was copiously irrigated and the tourniquet deflated. Hemostasis was obtained with the Aquamantys system. A drain was placed and brought out superolaterally. The capsule was closed with interrupted nonabsorbable suture. The subcutaneous layer was closed with barbed sutures, and the skin with a running 3-0 V-Lock suture and skin silvia. An sam dressing was applied and the patient was taken to recovery having tolerated the procedure well. Complications: none Condition: stable Disposition: PACU Plan for aftercare: The patient will be maintained on a standard total knee replacement protocol with weight bearing as tolerated. The patient will receive aspirin and sequential compression devices for DVT prophylaxis. The patient will be discharged home when safe for the home environment. Okay to use postoperative knee immobilizer while wound is beginning to heal. Wound VAC if needed for wound drainage. Weightbearing as tolerated. Okay to begin range of motion. Oral antibiotics as discussed with ID for minimizing risk for periprosthetic reinfection.
[2018-12-25] MEDS: LACTATED RINGERS 1,000 ML 125 ML IV (18:47)
--- NOTE | 2018-12-25 18:51 | PC.NURSE ---
Addendum entered by Elsie Coppola R.N. 12/25/18 22:01: Pt now fully awake. Assisted x 2 to bedside commode to void. Per Dr. Salazar, pt's brace to RLE was removed as pt requests. JENNIFER drain and hemovac drain intact and secure. Returned to bed and taking snack with hs meds. Room air sats 88%. Placed on NC 2L and sats 95%. Ice to right knee. Original Note: Addendum entered by Elsie Coppola R.N. 12/25/18 20:44: Pt continues to rest quietly in bed without signs of distress or discomfort. 02 with 4L bleed-in with CPAP in place. Dr. Salazar phones to check in on patient. Informed MD pt's 02 sats 94% with above interventions as mentioned. Okay per . Original Note: Pt to room 219 from PACU rousable, but drowsy. Admits to slight nausea associated with movement, but reports resolves at rest. Ice chips provided. Admits to full sensation to BL LE's. Able to ankle wave and calf pump BL upon command. Left scd in place. RLE immobilizer in place with JENNIFER drain intact. Hemovac compresssed. Desats with sleep and so CPAP placed. Pt occasionally continues to desat to low 80's and so R.T. called to provide 02 bleed-in. Pt admits to slight pain right shoulder, but does not have any difficulty resting and falling asleep. Family is present @ bedside.
[2018-12-25] MEDS: ASCORBIC ACID 500 MG TABLET PO (21:51)
[2018-12-25] MEDS: DOCUSATE 100 MG CAPSULE PO (21:53)
[2018-12-25] MEDS: ASPIRIN EC 81 MG TABLET PO (21:53)
[2018-12-25] MEDS: IMIPRAMINE HCL 25 MG TABLET 100 MG PO (21:54)
[2018-12-25] MEDS: FERROUS GLUCONATE 324 MG TABLET PO (21:54)
[2018-12-25] MEDS: PRAMIPEXOLE 0.25 MG TABLET 0.5 MG PO (21:56)
[2018-12-25] MEDS: sulfaSALAzine 500 MG TABLET 1000 MG PO (21:57)
[2018-12-26] MEDS: VANCOMYCIN 1,000 MG/200 ML FROZ.PIGGY 200 MG IV (00:17)
[2018-12-26] MEDS: LACTATED RINGERS 1,000 ML 125 ML IV (04:23)
[2018-12-26 06:00] VITALS: BP 120/75; PULSE 97; RESP 18; TEMP 36.8; O2SAT 94
[2018-12-26 06:50] LABS: Hematocrit 31.8 % (36-46); Hemoglobin 10.1 g/dL (12.0-16.0)
[2018-12-26 07:45] VITALS: BP 147/75; PULSE 98; RESP 18; TEMP 36.8; O2SAT 93
--- NOTE | 2018-12-26 07:45 | PM.PNPO.1 ---
Subjective Date Patient Seen: 12/26/18 Interval history: Patient is seen bedside status post right total knee revision postop day 1. Patient is doing well, her pain is well controlled. She has been up to the chair. She has not worked with physical therapy. She would like to go home when stable. Exam Vital Signs (past 8 hours): - 12/26/18 06:00 Temperature 98.3 F Pulse Rate 97 H Respiratory Rate 18 Blood Pressure 120/75 Pulse Oximetry 94 Oxygen Delivery Method CPAP Oxygen Flow Rate 4 Narrative Exam Narrative: Well-developed well-nourished no acute distress alert oriented x3. Dressing on right knee is clean dry and intact no signs of discharge. Minimal drainage in the Hemovac. Neurovascularly intact in the right lower extremity have full range of motion of the foot and ankle. Calf is soft and compressible. Objective Labs Result Diagrams: 12/26/18 06:00 Labs: Laboratory Results - last 24 hr 12/26/18 06:00 Hgb 10.1 L Hct 31.8 L Assessment & Plan Post-op Postoperative Procedures Operation Date: 12/25/18 12:45 Actual Procedures Side Surgeon p Revision,Total knee replacement, Right Fernanda Salazar MD 1. Postop day 1. Status post above procedure-work with PT OT, pending ID recommendations for chronic antibiotic prophylaxis. Continue vancomycin. Dispo-pending above. Quality VTE Deep Vein Thrombosis/Pulmonary Embolism Present on Admission: No
[2018-12-26] MEDS: ASPIRIN EC 81 MG TABLET PO ×2 (08:59→21:22)
[2018-12-26] MEDS: hydroCHLOROthiazide 25 MG TABLET PO (08:59)
[2018-12-26] MEDS: sulfaSALAzine 500 MG TABLET 1000 MG PO ×2 (09:00→21:26)
[2018-12-26] MEDS: ASCORBIC ACID 500 MG TABLET PO ×2 (09:00→21:23)
[2018-12-26] MEDS: MULTIVITAMIN 1 TABLET 1 TAB PO (09:00)
[2018-12-26] MEDS: FERROUS GLUCONATE 324 MG TABLET PO ×2 (09:00→21:24)
[2018-12-26] MEDS: ACETAMINOPHEN 325 MG TABLET 975 MG PO ×2 (09:00→18:01)
[2018-12-26] MEDS: DOCUSATE 100 MG CAPSULE PO ×2 (09:00→21:23)
[2018-12-26] MEDS: LOSARTAN 25 MG TABLET PO (09:00)
[2018-12-26] MEDS: CHOLECALCIFEROL (VITAMIN D3) 1,000 UNIT TABLET 2000 UNIT PO (09:01)
[2018-12-26] MEDS: HYDROXYCHLOROQUINE 200 MG TABLET 400 MG PO (09:01)
--- NOTE | 2018-12-26 11:30 | PT.IIE ---
Current Diagnoses Infection and inflammatory reaction due to other internal joint prosthesis, initial encounter (12/25/18) Surgery Performed Operation Date: 12/25/18 12:45 Actual Procedures p Revision,Total knee replacement, (Right) - Fernanda Salazar MD Surgical History (Last Updated 09/15/18 @ 16:50 by Jasmin Olea, RN) History of incision and drainage (Acute) History of laminectomy (Acute) History of total knee arthroplasty (Acute) Medical History (Last Updated 09/15/18 @ 16:50 by Jasmin Olea, RN) Anxiety (Acute) Arthritis (Acute) Back pain (Acute) Depression (Acute) Dermatitis (Acute) Eczema (Acute) GERD (gastroesophageal reflux disease) (Acute) Head injury (Acute ~07/2017) Hypertension (Acute) Impaired fasting glucose (Acute) Impaired vision (Acute) Infection of total right knee replacement (Acute) Long-term use of hydroxychloroquine (Acute) Motion sickness (Acute) Nocturia (Acute) Obesity (Acute) Osteoarthritis (Acute) PVC (premature ventricular contraction) (Acute) Panic attacks (Acute) Postmenopausal (Acute) Rheumatoid arthritis (Acute) Sleep apnea (Acute) Spinal stenosis (Acute) Wart of face (Acute) Physical Therapy Inpatient Evaluation/Re-Eval M1 PT/OT-IP Prior Functional Status Start: 12/26/18 11:38 Freq: NEEDED Status: Active Protocol: Document 12/26/18 11:30 DLM (Rec: 12/26/18 12:01 DLM [id number]) Medical Review Prior Functional Status Medical History Reviewed Yes Diet/Fluid Consistency Regular Communication WNL Mobility and Gait *was walking with fWW after TKA, *recently has been using wheelchair due to limited weight bearing on right knee, independent transfers Activities of Daily Living and IADL's Independent before and after TKA. Since hardware removal her Spouse has been assisting her more, was able to toilet independently Social History Household Members spouse Living Arrangements House Number of Floors (Floors) One Floor Number of Stairs To Enter/Railing? 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 M2 PT-IP Current Condition Start: 12/26/18 11:38 Freq: NEEDED Status: Active Protocol: Document 12/26/18 11:30 DLM (Rec: 12/26/18 12:01 DLM [id number]) Physical Therapy Current Condition Current Condition Evaluation Date 12/26/18 Treatment Diagnosis right TKA revision Onset Date 12/25/18 Precautions Brace not needed per chart notes Weight Bearing Status Weight Bearing Status Weight Bear as Tolerated M3 PT-IP Subjective Start: 12/26/18 11:38 Freq: NEEDED Status: Active Protocol: Document 12/26/18 11:30 DLM (Rec: 12/26/18 12:01 DLM [id number]) Subjective Physical Therapy Visit Type Type Initial Evaluation Visit Start Time 10:45 Visit Stop Time 11:30 Total Visit Minutes 45 Number of DOWEL INSERTING MACHINE OPERATOR Visits 0 Physical Therapy Visit Comments Patient Comments She is eager to start walking again Patient Goals discharge home with her Spouse Therapy Pain Assessment Pain When Pain Assessed After Treatment Pain Present Pain Present Pain Reported Location Right Knee Intensity 3 Scale Used Numeric (1 - 10) Description Aching Pain Behaviors Facial Grimacing Pain Management Techniques Apply Cold Re-positioning M4 PT-IP Mobility and Gait Start: 12/26/18 11:38 Freq: NEEDED Status: Active Protocol: Document 12/26/18 11:30 DLM (Rec: 12/26/18 12:01 DLM [id number]) PT-Bed Mobility Assessment Supine to Sit Supine to Sit Independent Sit to Supine Sit to Supine Independent Scooting Scooting to Edge of Bed Independent PT-Transfer Assessment Sit to and From Stand Sit to and from Stand Standby Assistance Use of Upper Extremities Equipment Transfer Assistive Device Gait Belt Front Wheeled Walker Transfers Transfer Destination Chair Transfer Technique Stand Step Pivot Transfer Ability Level of Assist Standby Assistance Comments Mobility Comments Up to recliner at the end of this visit with feet elevated and ice on knee, call light close Gait Assessment Gait Gait Assistance Required: Standby Assistance Distance (Feet) 60 Able to Maintain Weight Bearing Status Yes During Gait Assistive Devices Assistive Device Gait Belt Front Wheeled Walker Gait Deviations General Gait Pattern Antalgic Factors Limiting Gait Function Factors Limiting Gait Function Decreased Activity Tolerance Decreased Strength Pain Stair Climbing Assessment Comments Stair Climbing Comments defer to out-pt since pt has no steps she has to do to get into her house PT-Balance Assessment Sitting Balance and Reactions Static Sitting Balance Ability Good Dynamic Sitting Balance Ability Good Standing Balance and Reactions Static Standing Balance Ability Good Dynamic Standing Balance Ability Fair Device Used FWW M5 PT-IP Objective Assessments Start: 12/26/18 11:38 Freq: NEEDED Status: Active Protocol: Document 12/26/18 11:30 DLM (Rec: 12/26/18 12:01 DLM [id number]) Orientation Orientation/Cognition Level of Alertness Alert Orientation Name Age Birthday Month Date Year Day of Week Place Situation Language Function Ability No Deficits Noted Safety Awareness Understands Safety Issues Memory Description No Deficits Noted Gross Range of Motion Upper Extremity ROM Assessment Within Functional Limits Impairments recent pain in right shoulder at about 90 degrees elevation Lower Extremity ROM Assessment Right Impaired Impairments knee 10-90 degrees Strength Upper Extremity Strength Assessment Within Functional Limits Lower Extremity Strength Assessment Right Impaired Hip needs assist for full SLR off bed, hip flexion standing is functional Knee ext 3-/5 Ankle DF 4/5 Comments Strength Comments pain in right knee affects right LE strength Coordination Assessment Gross Coordination Gross Coordination WNL Sensation Assessment Sensation Gross Sensation WNL Muscle Tone Muscle Tone WNL Yes M6 PT-IP Treatment Start: 12/26/18 11:38 Freq: NEEDED Status: Active Protocol: Document 12/26/18 11:30 DLM (Rec: 12/26/18 12:01 DLM [id number]) Physical Therapy Treatment Exercises Exercises Ankle Pumps Quad Sets Heel Slides Straight Leg Raises Short Arc Quads Passive Knee Extension Hang Seated Knee Flexion/Extension Education Education Provided Weight Bearing Status Post-Op Packet Safety Equipment Issued Equipment Type and Company pt has her FWW and transport wheelchair in her room M7 PT-IP Assessment and Plan Start: 12/26/18 11:38 Freq: NEEDED Status: Active Protocol: Document 12/26/18 11:30 DLM (Rec: 12/26/18 12:01 DLM [id number]) PT Summary Assessment and Plan Potential Rehabilitation Potential Good Status of Condition at Evaluation Evolving Summary Impairments Pain ROM Strength Balance Bed Mobility Transfers Gait Activity Tolerance Assessment Summary Kaity tolerated gait and mobility well this visit. She gets tired faster than she anticipated with gait but this is likely due to her immobility before surgery. She ambulated in the koehler with her FWW. She has a supportive Spouse to assist her at home. She appears safe to discharge home when medically cleared. She reports she has out-pt PT scheduled to start in about a week. Goals Bed Mobility Goal Independent Transfer Goal Independent Front Wheeled Walker Gait Goal Independent Front Wheel Walker Gait Distance 100 feet Days to Meet Goals 2 Frequency of Treatment Frequency Of Treatment Twice a Day Treatment Plan Physical Therapy Treatment Plan Bed Mobility Training Transfer Training Gait Training Therapeutic Exercise Post Op Education Discharge Planning Hot or Cold Pack Recommendations To Nursing Amount of Assist Needed Standby Assistance Discharge Recommendations PT Discharge Recommendations Home with Assistance Outpatient PT
--- NOTE | 2018-12-26 11:31 | CM.DANOTE ---
Addendum entered by Lamar Lindsay LPN 12/26/18 12:10: Pt does confirm that she has Medicare A. 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 Her [place] P is primary. Original Note: Addendum entered by Lamar Lindsay LPN 12/26/18 12:00: Met with pt and her as planned. Introduced self and role. Pt notes she has been through quite a lot with knee and hip surgeries and infections post op. She is currently here for a revision of a R TKA. She has in past had IV antibiotics at home with [facility]. Dr. Salazar indicates she may have her d/c home on oral antibiotics if the ID physician recommends this. Pt notes she and her are very well set up at this point at home we have all the equipment we could possibly need and they have a lift that her put together so that pt can go directly from the car into the home without use of stairs. She says her only d/c plan is home when she is ready to leave hospital and Dr. Salazar's note echos same. P: check in prn as POC unfolds in case any needs arise but at this point pt and her seem to have a good plan. Original Note: Discharge Planning/Care Management DCP: assessment: case received, EMR reviewed. Pt is a 68 year old female who admitted for a planned TKA: Surgeon: Dr. Rich Salazar. Payer: [facility] (pt is 68 ? of Medicare..will check on this) PCP: Sheila Ross. NOTED: pt does carry dx of obesity: wt on admission: 302.4 lbs. Her preop note indicates a hx of head injury. PT is ordered but no notes are in thus far. P: check in with pt and follow for d/c issues and options. CM Discharge Assessment Start: 12/26/18 11:29 Freq: Status: Active Protocol: Document 12/26/18 11:30 ITV (Rec: 12/26/18 11:31 ITV [id number]) Discharge Planning Assessment Advance Directives? Yes History Provided By Patient Medical Record Prior Living Arrangements House Household Members spouse Whiteboard Updated in Patient Room with Yes name and ext. # of Recycling Sorter Review Status In Process Next Review Type Continued Stay Review Pre-Anesthesia Assessment Start: 12/17/18 14:41 Freq: Status: Complete Protocol: Document 12/17/18 14:41 CAB (Rec: 12/17/18 14:45 CAB [id number]) Pre-Anesthesia Assessment Patient Also Known As GOMEZ (AKA) Patient Information Reviewed Via Chart Review Phone Assessment Assessment Completed With Patient Primary Care Provider Sheila Ross Seen Specialist in Last 12 Months Yes Specialist Seen Drawing Frame Tender Orthopedist Other Comment Rheumatology Primary Language Croatian Preferred Language Croatian Extracorporeal Circulation Specialist Required No Height 172.72 cm Weight 145.15 kg Body Mass Index (BMI) 48.6 Visual Assist Glasses Hx Anesthesia Reactions Yes: No Benzodiazepines r/t head injury, extreme hyperactivity Hx Family Anesthesia Reaction No Hx Malignant Hyperthermia No Hx Blood Transfusions No Hx Blood Transfusion Reaction No Anesthesia Review Requested No Cbx Operator No alcohol intake never Smoking Status Never smoker Substance Use Type does not use Pain Present Pain Reported Musculoskeletal Symptoms Abnormal Gait Difficulty Walking Joint Pain Limited Range of Motion Patient is completely paralyzed or No completely immobile Mental Status Oriented to own ability Is patient on oxygen? No Does patient have GURROLA/SOB Yes: w/flight of stairs Hx Sleep Apnea Yes CPAP/BIPAP use prescribed and used routinely Will Bring CPAP/BIPAP DOS Yes Currently Taking a Beta Tish No Can You Climb a Flight of Stairs Without No SOB Hx Chest Pain No Hx SOB Yes: w/flight of stairs Hx Syncope or Dizziness Yes Anti-Coagulant Therapy No Has a Hydro Station Supervisor No Cardiac Testing No Hx Pacemaker/ICD No Pacemaker Rep Required? No Cardiac Clearance Received Not Applicable Urinary Catheter Present No Hx Urinary Self Catheterization No Diabetes No Patient No Lactating No Presence of External or Internal Medical Yes Devices Marital Status Lives With spouse Patient Discharge Plan Description Return Home Do You Have Any Spiritual Beliefs That No May Affect Your HC Choices? Do You Have Any Cultural Practices That No May Affect Your HC Choices? Emergency Contact Name Marko Mathew Emergency Contact [phone], Advance Directives? No Power of Integrity Director Yes Power of Integrity Director Name Marko Mathew
[2018-12-26 11:48] VITALS: BP 122/64; PULSE 93; RESP 20; TEMP 36.6; O2SAT 97
--- NOTE | 2018-12-26 14:52 | PT.OTN ---
Current Diagnoses Infection and inflammatory reaction due to other internal joint prosthesis, initial encounter (12/25/18)
[2018-12-26 15:30] VITALS: BP 138/78; PULSE 105; RESP 21; TEMP 36.2; O2SAT 94
[2018-12-26] MEDS: VANCOMYCIN 1,500 MG in SODIUM CHLORIDE 0.9% 500 ML 333.333 ML IV (17:58)
[2018-12-26] MEDS: OXYCODONE IR 5 MG TABLET PO (18:19)
--- NOTE | 2018-12-26 18:35 | PC.NURSE ---
Addendum entered by Orly Chaidez R.N. 12/26/18 20:07: here to see pt plan to dc home nancy. Pt up in rm amb with walker and sba several times. pain level down to less than 3 per pt. Original Note: Pt up to BR with min assist using walker pain in right surgical knee at a 6/10 medicated with tylenol schedule and oxycodone ir 5mg po. Pt in chair extremities elevated. spouse in room possible awaiting pt discharge today
[2018-12-26 20:05] VITALS: BP 154/81; PULSE 104; RESP 18; TEMP 37.2; O2SAT 94
[2018-12-26] MEDS: PRAMIPEXOLE 0.25 MG TABLET 0.5 MG PO (21:25)
[2018-12-26] MEDS: IMIPRAMINE HCL 25 MG TABLET 100 MG PO (21:25)
[2018-12-26 23:00] VITALS: PULSE 106; RESP 16; TEMP 36.8; O2SAT 100
[2018-12-27] MEDS: SODIUM CHLORIDE 0.9% 250 ML 21 ML IV (02:10)
[2018-12-27] MEDS: VANCOMYCIN 1,000 MG/200 ML FROZ.PIGGY 200 MG IV ×2 (02:38→09:41)
[2018-12-27] MEDS: OXYCODONE/ACETAMINOPHEN 5/325 TABLET 1 TAB PO (02:55)
[2018-12-27] MEDS: SODIUM CHLORIDE 0.9% FLUSH 10 ML IV ×2 (04:08→08:21)
[2018-12-27 06:00] VITALS: BP 115/75; PULSE 102; RESP 16; TEMP 36.4; O2SAT 100
[2018-12-27 07:55] VITALS: BP 150/77; PULSE 99; RESP 18; TEMP 36.6; O2SAT 94
[2018-12-27] MEDS: DOCUSATE 100 MG CAPSULE PO (08:21)
[2018-12-27] MEDS: CHOLECALCIFEROL (VITAMIN D3) 1,000 UNIT TABLET 2000 UNIT PO (08:21)
[2018-12-27] MEDS: HYDROXYCHLOROQUINE 200 MG TABLET 400 MG PO (08:21)
[2018-12-27] MEDS: sulfaSALAzine 500 MG TABLET 1000 MG PO (08:21)
[2018-12-27] MEDS: ASCORBIC ACID 500 MG TABLET PO (08:22)
[2018-12-27] MEDS: FERROUS GLUCONATE 324 MG TABLET PO (08:22)
[2018-12-27] MEDS: MULTIVITAMIN 1 TABLET 1 TAB PO (08:23)
[2018-12-27] MEDS: ACETAMINOPHEN 325 MG TABLET 975 MG PO (08:23)
[2018-12-27] MEDS: hydroCHLOROthiazide 25 MG TABLET PO (08:24)
[2018-12-27] MEDS: LOSARTAN 25 MG TABLET PO (08:24)
[2018-12-27] MEDS: ASPIRIN EC 81 MG TABLET PO (08:26)
--- NOTE | 2018-12-27 09:30 | PT.IPTN ---
Current Diagnoses Infection and inflammatory reaction due to other internal joint prosthesis, initial encounter (12/25/18) Surgery Performed Operation Date: 12/25/18 12:45 Actual Procedures p Revision,Total knee replacement, (Right) - Fernanda Salazar MD Physical Therapy Treatment Note M2 PT-IP Current Condition Start: 12/26/18 11:38 Freq: NEEDED Status: Discharge Protocol: Document 12/26/18 11:30 DLM (Rec: 12/26/18 12:01 DLM [id number]) Physical Therapy Current Condition Current Condition Evaluation Date 12/26/18 Treatment Diagnosis right TKA revision Onset Date 12/25/18 Precautions Brace not needed per chart notes Weight Bearing Status Weight Bearing Status Weight Bear as Tolerated M3 PT-IP Subjective Start: 12/26/18 11:38 Freq: NEEDED Status: Discharge Protocol: Document 12/27/18 09:30 GGD (Rec: 12/27/18 12:24 GGD [id number]) Subjective Physical Therapy Visit Type Type Treatment Note Visit Start Time 09:05 Visit Stop Time 09:30 Total Visit Minutes 25 Physical Therapy Visit Comments Patient Comments Pt willing to work with therapy. Therapy Pain Assessment Pain When Pain Assessed During Mobility Pain Present Pain Present Pain Reported M4 PT-IP Mobility and Gait Start: 12/26/18 11:38 Freq: NEEDED Status: Discharge Protocol: Document 12/27/18 09:30 GGD (Rec: 12/27/18 12:24 GGD [id number]) PT-Bed Mobility Assessment Sit to Supine Sit to Supine Independent Scooting Scooting to Edge of Bed Independent PT-Transfer Assessment Sit to and From Stand Sit to and from Stand Standby Assistance Use of Upper Extremities Equipment Transfer Assistive Device Gait Belt Front Wheeled Walker Transfers Transfer Destination Bed Gait Assessment Gait Gait Assistance Required: Standby Assistance Contact Guard Assist Distance (Feet) 50 Able to Maintain Weight Bearing Status Yes During Gait Assistive Devices Assistive Device Gait Belt Front Wheeled Walker Gait Deviations General Gait Pattern Antalgic Decreased Stride Length Factors Limiting Gait Function Factors Limiting Gait Function Decreased Activity Tolerance Decreased Strength Pain Comments Gait Comments Pt need min cues for posture and step length. M5 PT-IP Objective Assessments Start: 12/26/18 11:38 Freq: NEEDED Status: Discharge Protocol: Document 12/26/18 11:30 DLM (Rec: 12/26/18 12:01 DLM [id number]) Orientation Orientation/Cognition Level of Alertness Alert Orientation Name Age Birthday Month Date Year Day of Week Place Situation Language Function Ability No Deficits Noted Safety Awareness Understands Safety Issues Memory Description No Deficits Noted Gross Range of Motion Upper Extremity ROM Assessment Within Functional Limits Impairments recent pain in right shoulder at about 90 degrees elevation Lower Extremity ROM Assessment Right Impaired Impairments knee 10-90 degrees Strength Upper Extremity Strength Assessment Within Functional Limits Lower Extremity Strength Assessment Right Impaired Hip needs assist for full SLR off bed, hip flexion standing is functional Knee ext 3-/5 Ankle DF 4/5 Comments Strength Comments pain in right knee affects right LE strength Coordination Assessment Gross Coordination Gross Coordination WNL Sensation Assessment Sensation Gross Sensation WNL Muscle Tone Muscle Tone WNL Yes M6 PT-IP Treatment Start: 12/26/18 11:38 Freq: NEEDED Status: Discharge Protocol: Document 12/27/18 09:30 GGD (Rec: 12/27/18 12:24 GGD [id number]) Physical Therapy Treatment Exercises Exercises Ankle Pumps Gluteal Sets Quad Sets Heel Slides Straight Leg Raises Seated Knee Flexion/Extension M7 PT-IP Assessment and Plan Start: 12/26/18 11:38 Freq: NEEDED Status: Discharge Protocol: Document 12/27/18 09:30 GGD (Rec: 12/27/18 12:24 GGD [id number]) PT Summary Assessment and Plan Summary Assessment Summary Pt improving with mobility. she had good tolerance to TKA exercise. She safe for D/C home when medically stable. Frequency of Treatment Frequency Of Treatment Twice a Day Treatment Plan Physical Therapy Treatment Plan Bed Mobility Training Transfer Training Gait Training Therapeutic Exercise Post Op Education Discharge Planning Hot or Cold Pack Recommendations To Nursing Amount of Assist Needed Standby Assistance Discharge Recommendations PT Discharge Recommendations Home with Assistance Outpatient PT
--- NOTE | 2018-12-27 09:42 | PC.NURSE ---
Am shift Pt is post op revision to R knee, tolerating IV vanco, Hx of reactions to medications/IV ABX per pt and extended a/e post op with last procedure. Pt denies n/v, no itching, pain is managed with APAP and oxycodone As needed. Plan is to work on d/c home today with extended ABX per infectious dz recomendation. IV vanco hanging. BABAR Green into see Pt and will be d/c home today.
--- NOTE | 2018-12-27 09:57 | P.DS_ITS ---
History of Present Illness Date Patient Seen: 12/27/18 Chief complaint: [id number] Narrative: Patient seen bedside s/p R. knee revision POD #2. Patient is doing well, her pain is well controlled and she has been moving well with therapy. She would like to go home. Dr. Salazar spoke with ID and patient will go home with antibiotics for chronic suppression. Discharge Providers Date of admission: 12/25/18 10:39 Discharge Date: 12/27/18 Consults: 12/25/18 06:00 Consult to Anesthesiology Routine Comment: Consulting Provider: Anesthesiologist Reason for consultation: Regional block for post operative pain control Has provider been notified: Yes 12/25/18 11:39 Consult to Pastoral Services Routine Comment: none Consult to Respiratory Therapy Evaluate & Treat Comment: Physician Instructions: Evaluate and treat 12/25/18 18:17 Consult to Discharge Planning Routine Comment: Consult to Physical Therapy Evaluate & Treat Comment: Physician Instructions: postop TKA protocol Consult to Respiratory Therapy Evaluate & Treat Comment: Physician Instructions: Evaluate and treat Discharge provider: Izzy Green PA-C Summary 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 total knee revision on 12/25/18. Patient tolerated the procedure well with no major complications. They were transferred to the acute care floor where they were placed on the standard joint replacement pathway and protocol. They were seen by physical therapy who recommended that they be discharged home. They were stable and ready for discharge on 12/27/18. Exam Vital Signs (past 8 hours): - 12/27/18 06:00 12/27/18 07:55 Temperature 97.6 F 97.9 F Pulse Rate 102 H 99 H Respiratory Rate 16 18 Blood Pressure 115/75 150/77 H Pulse Oximetry 100 94 Oxygen Delivery Method CPAP Oxygen Flow Rate 2 Narrative Exam Narrative: Well-developed, well-nourished, no acute distress. Alert and oriented to person, place, and time. Dressing on operative knee is clean, dry, and intact with no signs of drainage. Minimal erythema and generalized swelling around the surgical site. Neurovascularly intact in operative extremity with a s oft and compressible calf. Range of motion of the operative ankle intact. Objective Labs Result Diagrams: 12/26/18 06:00 Discharge Plan Discharge Plan Patient Disposition: Home Discharge comment: d/c after vancomycin is finished. Discharge Med Rec/Prescriptions Prescriptions: New oxycodone 5 mg Tablet 5 mg PO Q4-6H PRN (Reason: pain) Qty: 40 RF: 0 hydroxyzine pamoate 25 mg Capsule 25 mg PO Q6HR PRN (Reason: Anxiety) Qty: 50 RF: 0 clindamycin HCl 300 mg capsule 300 mg PO Q6H Qty: 40 RF: 0 Continued hydrochlorothiazide 25 MG tablet 25 mg PO QDAY Qty: 0 RF: 0 imipramine HCl [Tofranil] 50 MG tablet 100 mg PO HS Qty: 0 RF: 0 pramipexole [Mirapex] 0.5 MG tablet 0.5 mg PO BEDTIME Qty: 0 RF: 0 ranitidine HCl [Zantac] 150 MG tablet 150 mg PO HS Qty: 0 RF: 0 multivitamin [Multiple Vitamins] 1 EACH tablet 1 tab PO QDAY Qty: 0 RF: 0 calcium carbonate 600 MG tablet 600 mg PO BID Qty: 0 RF: 0 losartan 25 MG tablet 25 mg PO QDAY Qty: 0 RF: 0 aspirin 81 MG tablet,delayed release (DR/EC) 81 mg PO BID Qty: 90 RF: 0 hydroxyzine pamoate 25 MG capsule 25 mg PO Q4HP PRNQty: 40 RF: 0 cholecalciferol (vitamin D3) [Vitamin D3] 2,000 unit Tablet 2,000 unit PO DAILY RF: 0 triamcinolone acetonide 0.5 % cream 1 applic Topical TID RF: 0 betamethasone valerate 0.1 % cream 1 applic Topical PRN PRN (Reason: Rash) RF: 0 alprazolam 1 mg tablet 1 tab PO DAILY PRN (Reason: Anxiety) RF: 0 ascorbic acid (vitamin C) [Vitamin C] 500 mg Tablet 500 mg PO BID Qty: 0 RF: 0 docusate sodium 100 mg Capsule 100 mg PO BID Qty: 0 RF: 0 ferrous gluconate 324 mg (38 mg iron) Tablet 324 mg PO BID Qty: 0 RF: 0 sulfasalazine 500 mg Tablet 1 g PO BID RF: 0 hydroxychloroquine 200 mg Tablet 400 mg PO DAILY RF: 0 Discontinued tramadol 50 mg Tablet 50 mg PO BEDTIME PRN (Reason: pain) RF: 0 Follow up/Referrals: Fernanda Salazar MD [Family Provider] - (Follow up on 01/08/19 with BABAR Goldsmith at the [place] office.) Provider Discharge Instructions Diet: Diet as Tolerated Activity: Weightbearing as tolerated, use walker until cleared by physical therapy. Elevate operative leg regularly to reduce swelling. Cold/Heat Therapy: Apply ice to affected area for 20 minutes at a time at least hourly while awake. Other treatments: Will be on oral antibiotics for 3 months for suppression of infection. Will receive new script for antibiotics at first post-op appointment. Skin/Wound/Dressing Care Report to your healthcare provider any signs of infection, such as:: chills, fever, night sweats, increased pain, unusual drainage and unusual redness Dressing: Keep dressing clean, dry, and intact. May shower with it in place but no soaking. Once JENNIFER dressing stops working, may cut the connection to the battery and keep dressing in place. Visit Report/Discharge Packet Instructions: DI for Knee Replacement Stand Alone Forms: Surgery Discharge Discharge Data Attending Provider: Fernanda Salazar Admit Date/Time: 12/25/18 10:39 Quality VTE Deep Vein Thrombosis/Pulmonary Embolism Present on Admission: No
--- NOTE | 2018-12-27 12:37 | CM.DPC ---
DCP: continued: Yanelis Magana has confirmed that pt is ready for d/c today. She will go on oral antibiotics and has been cleared by PT for home, as per pt and her 's desired plan.
[2019-01-02 07:55] LABS: Bacteria Det by PCR Univ WA SEE SEPARATE RESULTS
== END 2018-12-27 11:52 | disposition home or self-care (01) | DRG 467 ==
PROVIDERS: Admitting Provider Orthopaedic Surgery; Family Provider Orthopaedic Surgery; Visit Provider Orthopaedic Surgery
PROC: 0SPC08Z Removal of Spacer from Right Knee Joint, Open Approach (ICD-10-PCS; principal; 2018-12-25 12:45)
DX: T84.59XA Infection and inflammatory reaction due to other internal joint prosthesis, initial encounter (principal); Z68.42 Body mass index [BMI] 45.0-49.9, adult; E66.9 Obesity, unspecified; M06.9 Rheumatoid arthritis, unspecified; F32.9 Major depressive disorder, single episode, unspecified
CPT/HCPCS: 73560; 85014; 85018; 87070; 87075; 87205; 87801; 94760; 94762; 97110; 97116; 97162; 97530; C1776; C9290; J2274; J2405; J2704; J3010; J3370

== ENCOUNTER 2024-09-24 08:23 | Inpatient (IN) | payer OTHER, SELFPAY ==
[2018-12-25 11:07] VITALS: BMI 47.6
[2024-08-20 12:15] VITALS: BMI 36.5
[2024-09-24] VITALS (12 sets, daily range): BP systolic 79–157; BP diastolic 36–77; PULSE 111–123; RESP 10–30; TEMP 36.2–37; O2SAT 93–100; BMI 36.5
--- NOTE | 2024-09-24 | DI.RAD.S_ITS ---
PROCEDURE: XR PELVIS 1-2V INDICATIONS: intra op total right hip TECHNIQUE: 1 view of the lower pelvis acquired. COMPARISON: [facility], BUTCH, XR PELVIS WITH LATERAL HIP RIGHT, 04/10/2024, 14:46. FINDINGS: Right hip arthroplasty projects in the expected location. IMPRESSION: Right hip arthroplasty projects in the expected location. Dictated by: Carmine Weber M.D. on 09/24/2024 at 17:07 Approved by: Carmine Weber M.D. on 09/24/2024 at 17:09
--- NOTE | 2024-09-24 06:00 | DI.RAD.S_ITS ---
PROCEDURE: XR HIP W PEL IF DONE RT 2V INDICATIONS: KIMBERLY TECHNIQUE: AP pelvis and lateral view of the hip acquired. COMPARISON: [facility], CT, CT HIP RIGHT WITHOUT CONTRAST, 07/15/2024, 9:24. FINDINGS: Bones: Right hip arthroplasty with additional screw above the acetabular cup. Soft tissues: Soft tissue changes. IMPRESSION: Right hip arthroplasty with an additional screw above the acetabular cup. Dictated by: Lambert Torres M.D. on 09/24/2024 at 18:33 Approved by: Lambert Torres M.D. on 09/24/2024 at 18:35
[2024-09-24] MEDS: ACETAMINOPHEN 325 MG TABLET 975 MG PO (09:35)
[2024-09-24] MEDS: LACTATED RINGERS 1,000 ML 42 ML IV ×3 (09:45→16:01)
[2024-09-24] MEDS: VANCOMYCIN 1,000 MG/200 ML PIGGYBACK 200 MG IV (11:00)
[2024-09-24] MEDS: BUPIVACAINE 0.25% (PF) 60 ML, EPINEPHrine 0.3 MG INJ ×2 (12:25→12:27)
[2024-09-24] MEDS: BUPIVACAINE LIPOSOME 266 MG/20 ML VIAL INJ ×2 (12:29→12:30)
--- NOTE | 2024-09-24 12:36 | SUR.OPER ---
Lateral on a leyva bag, head on pillow, gel axillary roll in place, bottom leg bent with gel pad under knee to foot, upper leg straight and supported with pillows. Upper arm supported by pillows and secured over bottom arm to padded arm board. Safety belt at hip, tape over blanket lower legs.
--- NOTE | 2024-09-24 12:47 | SUR.OPER ---
Lateral on padded OR bed. Gel axillary roll. Arms secured on padded armboard with pillow supporting top arm. Padded hip positioner braces x4 - anterior and posterior chest and pelvis. Additional gel pad used anterior pelvis. Gel pad under bottom leg from knee to foot and secured with tape over sheet.
--- NOTE | 2024-09-24 16:51 | PM.HP.1 ---
History of Present Illness History of Present Illness Date Patient Seen: 09/24/24 Time Patient Seen: 10:00 Chief complaint: INPT Narrative: Alivia continues to note incapacitating right hip pain. Her surgery was delayed because she had an infected tooth. She also notes that she had a few drops of drainage from her left leg. She has been treated with Lasix in the past for peripheral edema. She denies any new cardiac or respiratory symptoms. She says that her weight has stabilized. She has not had any problems with her bowel or bladder. She did mention that she had a port in the past and did have a chlorhexidine reaction to that. She has had problems with the Gore in the past with an irritating her urological system and feeling like she needs to pee the time. She does note significant shortening of the right hip. FOR[facility]LY [facility], [facility] Medical History (Updated 09/24/24 @ 17:23 by Fernanda Salazar MD) Subdural hematoma (2016) Osteonecrosis BMI 33.0-33.9,adult (08/2024) Normal cardiac ejection fraction Normal cardiac ejection fraction (10/2023) 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) GIB (gastrointestinal bleeding) (10/2022) Chronic anemia Aortic stenosis Atrial fibrillation/flutter (08/2023) Back pain Arthritis Spinal stenosis Eczema Impaired fasting glucose PVC (premature ventricular contraction) Long-term use of hydroxychloroquine Obesity Anxiety Panic attacks Depression Dermatitis Wart of face Osteoarthritis Rheumatoid arthritis Nocturia Postmenopausal GERD (gastroesophageal reflux disease) Hypertension Sleep apnea Motion sickness Impaired vision Head injury (~07/2017) Infection of total right knee replacement Surgical History History of hung hole surgery (2016) History of incision and drainage History of laminectomy (2012) History of total knee arthroplasty Social History household members: spouse Smoking Status: Never smoker alcohol intake: never Meds Home Medications and Allergies Home Medications Medication Instructions Recorded Confirmed Type calcium carbonate 600 mg PO BID ##0 12/30/17 08/20/24 History multivitamin (Multiple Vitamins 1 tab PO QDAY ##0 12/30/17 08/20/24 History tablet) cholecalciferol (vitamin D3) 50 2,000 unit PO DAILY 09/02/18 08/20/24 History mcg (2,000 unit) tablet (Vitamin D3) triamcinolone acetonide 0.5 % 1 applic topical TID rash 09/02/18 08/20/24 History topical cream hydroxychloroquine 200 mg tablet 400 mg PO DAILY RA 12/17/18 08/20/24 History sulfasalazine 500 mg tablet 1,000 mg PO BID RA 12/17/18 08/20/24 History ascorbic acid (vitamin C) 500 mg 250 mg PO DAILY 08/20/24 08/20/24 History tablet (Vitamin C) digoxin 125 mcg (0.125 mg) tablet 125 mcg PO DAILY 08/20/24 08/20/24 History diltiazem HCl 120 mg tablet 120 mg PO BID 08/20/24 08/20/24 History docusate sodium 100 mg capsule 100 mg PO DAILY 08/20/24 08/20/24 History imipramine HCl 50 mg tablet 100 mg PO QPM 08/20/24 08/20/24 History metoprolol tartrate 25 mg tablet 25 mg PO BID 08/20/24 08/20/24 History pramipexole 0.5 mg tablet 0.5 mg PO QPM 08/20/24 08/20/24 History rivaroxaban 20 mg tablet (Xarelto) 20 mg PO QPM 08/20/24 08/20/24 History ferrous sulfate 325 mg (65 mg 325 mg PO DAILY 08/24/24 08/24/24 History iron) tablet gabapentin 100 mg capsule 100 mg PO BEDTIME 08/24/24 08/24/24 History hydrocodone 5 mg-acetaminophen 325 1 tab PO PRN PRN Pain, Moderate 08/24/24 08/24/24 History mg tablet leflunomide 20 mg tablet 20 mg PO DAILY 08/24/24 08/24/24 History pantoprazole 40 mg tablet,delayed 40 mg PO DAILY 08/24/24 08/24/24 History release rosuvastatin 10 mg tablet 10 mg PO QPM 08/24/24 08/24/24 History sertraline 25 mg tablet 25 mg PO DAILY 08/24/24 08/24/24 History Allergies Allergy/AdvReac Type Severity Reaction Status Date / Time chlorhexidine Allergy Severe Rash - pt Verified 09/24/24 08:54 states with assisted use. lorazepam [LORAZEPAM] Allergy Severe ANXIETY, Verified 09/24/24 08:54 hyperactivity, combative azathioprine AdvReac Severe N/V Verified 09/24/24 08:54 Benzodiazepines AdvReac Severe TEARING Verified 09/24/24 08:54 [BENZODIAZEPINES] CLOTHES OFF, NO MEMORY X2 DAYS, combative. lisinopril [LISINOPRIL] AdvReac Intermediate COUGH Verified 09/24/24 08:54 clindamycin AdvReac Nausea Verified 09/24/24 08:54 doxycycline AdvReac Nasal Verified 09/24/24 08:54 Discharge nickel AdvReac from Verified 09/24/24 08:54 earrings Exam Vital Signs (past 8 hours): - 09/24/24 09:01 Temperature 97.2 F L Pulse Rate 117 H Respiratory Rate 18 Blood Pressure 141/77 H Pulse Oximetry 99 Oxygen Delivery Method Room Air Oxygen Delivery Method Room Air Narrative Exam Narrative: HEENT is benign, lungs are clear, cor regular rate and rhythm, abdomen is slightly obese but benign, examination of the right hip shows severe pain range of motion marked shortening of the right leg, significant flexion contracture and essentially no range of motion the left lower extremity has some slight serous drainage. Her calves are soft bilaterally. There is no pitting edema. Assessment & Plan Assessment and plan (1) Avascular necrosis of bone of right hip: Status: Acute (2) Obesity due to excess calories with serious comorbidity: Status: Acute Plan She has multiple medical problems. She has chronically been on some steroids because she just was taken off her DMARD due to bleeding ulcers and recent multiple medical problems. She has severe shortening of the right hip. She has been extensively worked up for infection. She has a history of rheumatoid arthritis. She has incapacitating pain. I explained to her in detail that she has severe problem with her hip. She is very short and has severe osteoporosis and a markedly abnormal hip. We will attempt to restore some of her leg length on the right. I anticipate I will need to place a cemented prosthesis. She has a high hip center we will have multiple options available for cup reconstruction. She may need an augment. I also discussed with her that there is a chance that she may have problems with instability, fracture and/or infection. She does have previous history of a periprosthetic joint infection. I also warned her that if we can not adequately reconstruct her joint that some point she might need a Girdlestone. She is essentially functioning at the level of a girdle stone currently. She feels severely disabled by her right hip she has difficulty even standing with a walker and she does want to proceed with right total hip arthroplasty. The options risks benefits and complications were discussed in great detail. As well as the serious nature of the procedure. We have spent about a year stabilizing her health in order to make her an adequate candidate for surgery. Time-Based Coding :: [TOTAL MINUTES] spent with patient and on the chart (including review of chart, obtaining history, exam, reviewing outside data, placing orders, documenting exam and treatment plan, and counseling patient) on [DATE].
--- NOTE | 2024-09-24 17:19 | DI.RAD.S_ITS ---
PROCEDURE: XR CHEST 1V INDICATIONS: line placement TECHNIQUE: One view of the chest was acquired. COMPARISON: [facility], CR, XR CHEST FOR PICC 1V, 09/03/2018, 14:19. FINDINGS: Surgical changes and devices: Right central line terminates at the cavoatrial junction. Lungs and pleura: Low lung volumes. Mildly prominent interstitium. Mediastinum: heart size is at the upper limit of normal. Bones and chest wall: Degenerative changes IMPRESSION: Right central line terminates at the cavoatrial junction. Low lung volumes and interstitial prominence, possibly edema or atypical infection. Consider future imaging surveillance to assess for resolution. Borderline cardiomegaly. Dictated by: Lambert Torres M.D. on 09/24/2024 at 19:54 Approved by: Lambert Torres M.D. on 09/24/2024 at 19:55
[2024-09-24 17:22] LABS: Add Manual Diff / Slide Review NO; Basophils Absolute Auto 100 /uL (0-100); Basophils Percent Auto 0.5 % (0-2); Eosinophils Absolute Auto 100 /uL (0-450); Eosinophils Percent Auto 1.1 % (2-4); Hematocrit 22.3 % (36-46); Hemoglobin 7.3 g/dL (12.0-16.0); Lymphocytes Absolute Auto 600 /uL (1100-4500); Lymphocytes Percent Auto 5.2 % (25-40); Mean Corpuscular HGB Conc 32.8 % (30-36); Mean Corpuscular Hemoglobin 29.2 PG (26-34); Mean Corpuscular Volume 88.9 fL (80-100); Monocytes Absolute Auto 800 /uL (0-900); Monocytes Percent Auto 6.7 % (3-14); Neutrophils Absolute Auto 10700 /uL (1500-7000); Neutrophils Percent Auto 86.5 % (50-75); Platelet Count 224 X10^3/uL (150-400); Red Blood Cell Count 2.51 X10^6/uL (4.0-5.2); Red Cell Distribution Width 15.9 % (11.6-14.8); White Blood Cell Count 12.4 X10^3/uL (4.5-11.0)
[2024-09-24 17:24] LABS: INR 1.4 (0.9-1.3); Prothrombin Time 15.6 SECONDS (9.4-12.5)
[2024-09-24 17:26] LABS: PTT Partial Thromboplastin Tim 34 SECONDS (25.1-36.5)
[2024-09-24] MEDS: PHENYLEPHRINE 20,000 MCG in DEXTROSE 5% IN WATER 250 ML 40.823 MCG IV (17:26)
[2024-09-24 17:27] LABS: BUN Creatinine Ratio 32.6 (6-22); Blood Urea Nitrogen 31 mg/dL (7-17); Calcium 8.5 mg/dL (8.4-10.2); Carbon Dioxide 25 mmol/L (22-32); Chloride 102 mmol/L (98-107); Estimated Glomerular Filt Rate > 60 mL/min (>60); Glucose 148 mg/dL (80-110); HEMOLYSIS 26 (0-50); Potassium 4.2 mmol/L (3.4-5.1); Sodium 132 mmol/L (137-145)
[2024-09-24] MEDS: fentaNYL 100 MCG/2 ML INJ IV (17:27)
[2024-09-24] MEDS: HYDROMORPHONE 1 MG INJ IV ×2 (17:28→17:36)
--- NOTE | 2024-09-24 17:31 | PM.OP.1 ---
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 She has a history of rheumatoid arthritis. She was worked up preoperatively for low-grade infection which was negative. She has incapacitating pain and can not put weight on her right leg. Non-operative management has failed and the patient has requested total hip replacement. The risks, benefits and alternatives to surgery were discussed with the patient prior to proceeding. Risks discussed included, but were not limited to, failure to relieve pain, leg length discrepancy, dislocation, stiffness, infection, nerve damage, deep venous thrombosis, pulmonary embolism, stroke, coma, heart attack, permanent paralysis and , as well as the potential need for eventual revision of the prosthetic. Surgeon: Fernanda Salazar Bulkhead Carpenter: Nito Goldsmith Anesthesia Type: General and Spinal Operative Notes Findings: Essentially no femoral head, severe collapse of her femoral head marked scarring, no range of motion preoperatively with essentially no internal or external rotation, mandaeism of leg length, tight hip post mandaeism, soft bone, adequate stability Closure Type: primary Specimen(s): none sent Prosthetic devices, grafts, tissues, transplants, or devices: Salazar [employer] Nephew size 12 synergy, cemented, size 58 Redapt acetabulum, dual mobility liner 50 x 12 mm redapt staple augment, multiple screws, OR 30 degree 28 x 44 mm, 28+ 0 Oxinium head, 44 x 58 dual mobility liner, multiple screws. Estimated Blood Loss (mL): 700 Blood products transfused: none Procedure in detail: The patient was seen in the pre-operative area, where the patient identified the right hip as the operative site and this was marked with my initials. The patient received pre-operative antibiotics and was taken to the operating room and placed on the operative table in the left lateral decubitus position after satisfactory anesthesia. A predator control trapper out was performed. The right leg was prepared from the ankle to the iliac crest with ChloroPrep in the usual fashion and draped through sterile drapes. A PA was used during the procedure and was essential for intraoperative retraction. She had severe shortening of the right leg and severe scar. The hip was approached through an approximately 24 cm incision centered over the greater trochanter and curving gently posteriorly as it went proximally. This was carried sharply to the fascia sage, which was divided and retracted with a self retaining retractor. The trochanteric bursa was excised with care being taken to avoid the sciatic nerve, which was identified and protected throughout the case. She had severe scarring of her hip. It was more than 1 cm short. There was essentially no rotation of the hip. The bursa was meticulously resected. The short external rotators were incised and the capsulomuscular flap was raised and tagged for later repair. The hip was very short and not centered in the acetabulum. Extensive fraying of the capsule and short external rotators allowed some mobilization of the trochanter. There was essentially no head. A femoral neck osteotomy performed approximately 15 mm above the lesser trochanter. Bone from the femoral head was sent for culture and sensitivity. There was severe scar but the fluid from the capsule of the appear clear and it did not appear that she had an underlying infection. Retractors were placed around the femur. The canal was opened with a box cutting osteotome, followed by a T handled reamer and a lateralizing reamer. The chili pepper broach was then used, followed by sequential broaching until there was good stability of the broach in the femur. Mobilizing the femur in order to allow adequate visualization of the proximal femur and canal required fairly extensive releases circumferentially around the acetabulum and along the broach. Retractors were placed to expose the acetabulum. The labrum and central soft tissues were removed. I also specifically stripped soft tissues from the superior aspect of the acetabulum to allow visualization cup implantation. Reaming was performed initially going up in 2 mm increments, then 1 mm increments until good bite was obtained with an odd sized reamer. There was clearly a defect in the superior aspect of the acetabulum. I had augments available. We did a trial with some of the augments and adjusted the cup and also the augment. Also placed a K-wire in order to stabilize the augment. It looked like the best fixation would be to fix the acetabulum in the appropriate position and then placed the final augment. The cup 1 mm larger than the last reamer was then inserted using the appropriate anteversion guides. Multiple screws were placed in the acetabulum with adequate bite. There did appear to be adequate stability of the cup especially with the augment placed superior posterior. A trial neutral liner for dual mobility was placed The broach was placed in the canal. A trial head and neck were then placed and the hip relocated and checked for leg length and stability. An intraoperative film confirmed the component position and no evidence of fracture. The patient was stable in the position of sleep, of squatting, and could be put through a range of motion with 45 degrees internal rotation without dislocation. At 90 degrees flexion, internal rotation to 70 was possible before dislocation. This was felt to be satisfactory. The film looked like she was a little bit short. She did clearly have a flexion contracture but fairly extensive anterior release it already been performed. The trial femoral component was removed. The acetabular dual mobility liner was placed. Attention was then directed to placing the augment. I had done a trial reduction previously and I used a bur to slightly burred in order to allow deeper insertion of the acetabular augment. The augment was then carefully placed and held with a screw. High viscosity cement was mixed in order to summers the augment to the acetabulum. A distal cement restrictor was placed. The bone was carefully cleaned and dried. The final stem was then cemented into the prepared femoral canal. A brief Betadine soak was performed while trialing with head options. Leg lengths looked essentially restored. She had adequate stability. The hip was meticulously irrigated with normal saline. Finally the femoral head was impacted onto the stem. The acetabulum was cleared of all material and the hip relocated one final time. The capsulomuscular flap was then repaired to the greater trochanter though an awl hole using the tag sutures. The short external rotators were repaired with a nonabsorbable suture. The fascia sage was closed with Vicryl. The subcutaneous layer was closed with barbed sutures and skin silvia. A sam dressing was applied and the patient was taken to recovery having tolerated the procedure. She was noted to have some hypotension in the recovery room. Her recovery room hematocrit was 22 and her hemoglobin was 7. She was typed and crossed for transfusion. Complications: none Post-operative Condition: stable Disposition: Acute Care Plan for aftercare: The patient will be maintained on a standard total hip replacement protocol with weight bearing as tolerated and strict posterior hip precautions. The patient will receive Xarelto to start in 48 hours and sequential compression devices for DVT prophylaxis. The patient will be discharged home when safe for the home environment.
--- NOTE | 2024-09-24 17:31 | PM.PROC.1 ---
Procedures Date/Time Date of procedure: 09/24/24 Time of procedure: 17:32 General Procedure description: Right IJ triple-lumen catheter Ultrasound guidance of right IJ catheter Complications: none Central Line Placement Time out performed: Yes Patient placed on monitor/pulse ox: Yes MD prep: mask, gown and gloves Central line prep: Chlorhexidine scrub Local anesthesia used: lidocaine 1% Amount of anesthesia used (ml): 5 Ultrasound used for placement: Yes Central line lumen inserted: triple Post procedure: sutured in place, good blood return, all ports aspirated, flushed, capped and sterile dressing applied Post procedure x-ray: tip of catheter in good position and no pneumothorax seen Patient tolerated procedure: well Complications: none
--- NOTE | 2024-09-24 18:14 | P.CONS_ITS ---
History of Present Illness Consult details Chief complaint: INPT Reason for consult: Postoperative hypotension, KIMBERLY. Significant blood loss. Requesting provider: Fernanda Salazar Narrative: The patient was a 73-year-old female status post a right total hip arthroplasty for osteonecrosis. The patient had a significant blood loss and was hypotensive postprocedure. She also has a history of obesity, moderate aortic stenosis, and QUIRINO. She required boluses of Herminio-Synephrine in the postoperative phase. Her case started out with a spinal and then was augmented with a general anesthetic. She had a operative time of 6-7 hours per verbal report from anesthesia. A central line was requested prior to transfer to the floor based on a report that indicated hemodynamic instability. In addition the patient has history of QUIRINO, aortic stenosis, obesity increased her risks in the postoperative phase. The patient was transferred to the CCU with a right IJ in place and was on a Herminio- Synephrine drip upon arrival. She had an oxygen face mask on, was able to communicate and denied chest pain or dyspnea. She also noted significant right hip pain. Her blood pressure was reasonable, she was tachycardic. She had no obvious bleeding at her right hip incisional wound. Meds Home Medications and Allergies Home Medications Medication Instructions Recorded Confirmed Type calcium carbonate 600 mg PO BID ##0 12/30/17 08/20/24 History multivitamin (Multiple Vitamins 1 tab PO QDAY ##0 12/30/17 08/20/24 History tablet) cholecalciferol (vitamin D3) 50 2,000 unit PO DAILY 09/02/18 08/20/24 History mcg (2,000 unit) tablet (Vitamin D3) triamcinolone acetonide 0.5 % 1 applic topical TID rash 09/02/18 08/20/24 History topical cream hydroxychloroquine 200 mg tablet 400 mg PO DAILY RA 12/17/18 08/20/24 History sulfasalazine 500 mg tablet 1,000 mg PO BID RA 12/17/18 08/20/24 History ascorbic acid (vitamin C) 500 mg 250 mg PO DAILY 08/20/24 08/20/24 History tablet (Vitamin C) digoxin 125 mcg (0.125 mg) tablet 125 mcg PO DAILY 08/20/24 08/20/24 History diltiazem HCl 120 mg tablet 120 mg PO BID 08/20/24 08/20/24 History docusate sodium 100 mg capsule 100 mg PO DAILY 08/20/24 08/20/24 History imipramine HCl 50 mg tablet 100 mg PO QPM 08/20/24 08/20/24 History metoprolol tartrate 25 mg tablet 25 mg PO BID 08/20/24 08/20/24 History pramipexole 0.5 mg tablet 0.5 mg PO QPM 08/20/24 08/20/24 History rivaroxaban 20 mg tablet (Xarelto) 20 mg PO QPM 08/20/24 08/20/24 History ferrous sulfate 325 mg (65 mg 325 mg PO DAILY 08/24/24 08/24/24 History iron) tablet gabapentin 100 mg capsule 100 mg PO BEDTIME 08/24/24 08/24/24 History hydrocodone 5 mg-acetaminophen 325 1 tab PO PRN PRN Pain, Moderate 08/24/24 08/24/24 History mg tablet leflunomide 20 mg tablet 20 mg PO DAILY 08/24/24 08/24/24 History pantoprazole 40 mg tablet,delayed 40 mg PO DAILY 08/24/24 08/24/24 History release rosuvastatin 10 mg tablet 10 mg PO QPM 08/24/24 08/24/24 History sertraline 25 mg tablet 25 mg PO DAILY 08/24/24 08/24/24 History Allergies Allergy/AdvReac Type Severity Reaction Status Date / Time chlorhexidine Allergy Severe Rash - pt Verified 09/24/24 08:54 states with alf use. lorazepam [LORAZEPAM] Allergy Severe ANXIETY, Verified 09/24/24 08:54 hyperactivity, combative azathioprine AdvReac Severe N/V Verified 09/24/24 08:54 Benzodiazepines AdvReac Severe TEARING Verified 09/24/24 08:54 [BENZODIAZEPINES] CLOTHES OFF, NO MEMORY X2 DAYS, combative. lisinopril [LISINOPRIL] AdvReac Intermediate COUGH Verified 09/24/24 08:54 clindamycin AdvReac Nausea Verified 09/24/24 08:54 doxycycline AdvReac Nasal Verified 09/24/24 08:54 Discharge nickel AdvReac from Verified 09/24/24 08:54 earrings Review of Systems Review of Systems Narrative: The patient is not completely awake and has difficulty answering many questions. ROS is incomplete. Exam Vital Signs (past 8 hours): - 09/24/24 16:35 09/24/24 16:41 09/24/24 16:42 Temperature 97.9 F 97.1 F L Pulse Rate 114 H 115 H 115 H Respiratory Rate 30 H 10 L 17 Blood Pressure 88/36 L 82/39 L 79/39 L Pulse Oximetry 93 99 97 Oxygen Delivery Method Simple Mask Simple Mask Simple Mask Oxygen Flow Rate 10 7 7 09/24/24 16:45 09/24/24 16:48 09/24/24 16:51 Temperature Pulse Rate 113 H 113 H 114 H Respiratory Rate 17 10 L 21 Blood Pressure 91/43 L 90/43 L 86/39 L Pulse Oximetry 97 96 97 Oxygen Delivery Method Simple Mask Simple Mask Simple Mask Oxygen Flow Rate 7 7 7 09/24/24 16:54 09/24/24 17:20 Temperature 97.4 F L Pulse Rate 114 H 111 H Respiratory Rate 13 17 Blood Pressure 98/45 L 128/72 Pulse Oximetry 97 100 Oxygen Delivery Method Simple Mask Simple Mask Oxygen Flow Rate 7 10 Oxygen Delivery Method Simple Mask Oxygen Flow Rate 10 Narrative Exam Narrative: NAD, a somnolence, soft and slightly slurred speech, no distress. She was obese. Normocephalic skull, EOMI, anicteric sclera, symmetric pupils. Oropharynx unremarkable, no droop. Neck supple, midline trachea, no adenopathy. Lungs clear, normal rate and effort. Heart regular, loud systolic murmur, no gallop or rub. Tachycardic Abdomen is soft, non distended and non tender. Extremities are free of edema. Skin is free of rash or lesions. Joints are not swollen or deformed. Objective Labs 09/24/24 16:30 09/24/24 16:30 Labs: Laboratory Results - last 24 hr 09/24/24 16:30 WBC 12.4 H RBC 2.51 L Hgb 7.3 L Hct 22.3 L MCV 88.9 MCH 29.2 MCHC 32.8 RDW 15.9 H Plt Count 224 Neut % (Auto) 86.5 H Lymph % (Auto) 5.2 L [place] % (Auto) 6.7 Eos % (Auto) 1.1 L Baso % (Auto) 0.5 Neut # (Auto) 10379 H Lymph # (Auto) 600 L [place] # (Auto) 800 Eos # (Auto) 100 Baso # (Auto) 100 PT 15.6 H INR 1.4 H APTT 34 Sodium 132 L Potassium 4.2 Chloride 102 Carbon Dioxide 25 BUN 31 H Creatinine 0.95 Estimated GFR > 60 BUN/Creatinine Ratio 32.6 H Glucose 148 H Calcium 8.5 Blood Type A Positive Antibody Screen Negative Crossmatch See Detail [facility] Medical History Subdural hematoma (2016) Osteonecrosis BMI 33.0-33.9,adult (08/2024) Normal cardiac ejection fraction Normal cardiac ejection fraction (10/2023) 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) GIB (gastrointestinal bleeding) (10/2022) Chronic anemia Aortic stenosis Atrial fibrillation/flutter (08/2023) Back pain Arthritis Spinal stenosis Eczema Impaired fasting glucose PVC (premature ventricular contraction) Long-term use of hydroxychloroquine Obesity Anxiety Panic attacks Depression Dermatitis Wart of face Osteoarthritis Rheumatoid arthritis Nocturia Postmenopausal GERD (gastroesophageal reflux disease) Hypertension Sleep apnea Motion sickness Impaired vision Head injury (~07/2017) Infection of total right knee replacement Surgical History History of hung hole surgery (2016) History of incision and drainage History of laminectomy (2012) History of total knee arthroplasty Social History household members: spouse Tobacco & Substance Use Smoking Status: Never smoker alcohol intake: never Assessment & Plan Assessment & Plan narrative: 1. Postoperative hypotension, present on admission and active. 2. Blood loss anemia, present on admission and active. 3. Obesity, present on admission and active. 4. Moderate aortic stenosis, present on admission and active. 5. PAF, not present on admission are active. 6. RA on chronic immunosuppression, present on admission and active. Plan: -vasopressor support as needed, maintain map over 65, wean as able. -IV fluids at 100 mL/hour. -transfuse 1 unit of blood right now. -repeat hemoglobin at 11:00 p.m.. -hold all blood pressure medications. -BiPAP or CPAP per RT protocol. -her aortic stenosis increases her risk of pulmonary edema or hypotension. Proximally 45 minutes of critical care time was spent assisting with this patient's care. Time-Based Coding :: 45 min spent with patient and on the chart (including review of chart, obtaining history, exam, reviewing outside data, placing orders, documenting exam and treatment plan, and counseling patient) on 09/24.
[2024-09-24] MEDS: SODIUM CHLORIDE 0.9% 1,000 ML 100 ML IV (18:27)
--- NOTE | 2024-09-24 18:28 | PC.NURSE ---
5557 - Patient admitted from the PACU via bed. Patient asleep and snoring. 15L on oxymask O2 at 100%, transitioned to 6L NC. Phenylephrine infusing at 0.5mcg/kg/min into right IJ central line. Patient rousable, but mumbled and soft spoken, stating hip hurts then quickly falls back asleep. Marko at bedside answering admission questions. Anticipating blood transfusion, awaiting call from lab to confirm blood is ready.
[2024-09-24] MEDS: CEFAZOLIN 2 GM/100 ML PREMIX 100 ML IV (18:36)
[2024-09-24] MEDS: methylPREDNISolone 125 MG/2 ML VIAL IV (18:36)
[2024-09-24 20:23] LABS: MRSA (Nasal) PCR NOT DETECTED (Not Detect)
[2024-09-24] MEDS: HYDROMORPHONE 0.5 MG INJ IV (20:32)
[2024-09-24] MEDS: OXYCODONE IR 10 MG TABLET PO (20:56)
[2024-09-24] MEDS: PRAMIPEXOLE 0.25 MG TABLET 0.5 MG PO (21:46)
--- NOTE | 2024-09-24 23:43 | RT ---
patient placed on home CPAP @ 2300. Equip checked and placed on w/o incident. RN at bedside
[2024-09-25] MEDS: HYDROMORPHONE 0.5 MG INJ IV ×4 (01:00→20:58)
[2024-09-25] MEDS: CEFAZOLIN 2 GM/100 ML PREMIX 100 ML IV (01:01)
[2024-09-25] MEDS: OXYCODONE IR 5 MG TABLET PO ×3 (01:11→16:25)
[2024-09-25 01:24] LABS: Add Manual Diff / Slide Review NO; Basophils Absolute Auto 100 /uL (0-100); Basophils Percent Auto 0.6 % (0-2); Eosinophils Absolute Auto 0 /uL (0-450); Hematocrit 26.7 % (36-46); Lymphocytes Absolute Auto 400 /uL (1100-4500); Lymphocytes Percent Auto 2.7 % (25-40); Mean Corpuscular HGB Conc 33.7 % (30-36); Mean Corpuscular Hemoglobin 29.2 PG (26-34); Mean Corpuscular Volume 86.6 fL (80-100); Monocytes Absolute Auto 500 /uL (0-900); Monocytes Percent Auto 3.3 % (3-14); Neutrophils Absolute Auto 14200 /uL (1500-7000); Neutrophils Percent Auto 93.4 % (50-75); Platelet Count 238 X10^3/uL (150-400); Red Blood Cell Count 3.08 X10^6/uL (4.0-5.2); White Blood Cell Count 15.2 X10^3/uL (4.5-11.0)
[2024-09-25] MEDS: ATORVASTATIN 20 MG TABLET PO ×2 (03:46→20:13)
[2024-09-25] MEDS: DOCUSATE 100 MG CAPSULE PO ×3 (03:46→20:13)
[2024-09-25] MEDS: SODIUM CHLORIDE 0.9% 1,000 ML 100 ML IV (05:24)
[2024-09-25 06:59] LABS: Hematocrit 24.5 % (36-46); Hemoglobin 8.1 g/dL (12.0-16.0)
[2024-09-25 08:00] VITALS: BP 128/63; PULSE 125; RESP 10; O2SAT 95
[2024-09-25] MEDS: SERTRALINE 50 MG TABLET 25 MG PO (08:24)
[2024-09-25] MEDS: HYDROXYCHLOROQUINE 200 MG TABLET 400 MG PO (08:24)
[2024-09-25] MEDS: OXYCODONE IR 10 MG TABLET PO ×4 (08:24→18:37)
[2024-09-25] MEDS: DIGOXIN 0.125 MG TABLET PO (08:25)
[2024-09-25] MEDS: PANTOPRAZOLE DR 40 MG TABLET PO (08:25)
[2024-09-25] MEDS: FERROUS SULFATE 325 MG TABLET PO (08:25)
[2024-09-25] MEDS: CHOLECALCIFEROL (VITAMIN D3) 1,000 UNIT TABLET 2000 UNIT PO (08:26)
[2024-09-25] MEDS: MULTIVITAMIN 1 TABLET 1 TAB PO (08:26)
[2024-09-25] MEDS: ASCORBIC ACID 500 MG TABLET 250 MG PO (08:26)
--- NOTE | 2024-09-25 08:33 | PM.PN.1 ---
Subjective Subjective Interval history: Summary: Patient was a 73-year-old female with postoperative hemorrhagic shock after a KIMBERLY. She required CVL and short term pressors as well as a blood transfusion. Subjective: She was doing better today. She was off pressors. She fails fairly normal with regards to her breathing and denies any chest pain. She does have some hip pain. Exam Vital Signs (past 8 hours): Oxygen Delivery Method Nasal Cannula,CPAP,Oximask Oxygen Flow Rate 10 Narrative Exam Narrative: NAD, alert and oriented. Fluent speech. Lungs are clear, normal rate and effort. Heart is regular, no murmur gallop or rub. Abdomen is soft, non distended. Extremities are free of edema. Objective Labs 09/25/24 06:20 09/24/24 16:30 Labs: Laboratory Results - last 24 hr 09/24/24 09/24/24 09/25/24 16:30 18:17 01:17 WBC 12.4 H 15.2 H RBC 2.51 L 3.08 L Hgb 7.3 L 9.0 L Hct 22.3 L 26.7 L MCV 88.9 86.6 MCH 29.2 29.2 MCHC 32.8 33.7 RDW 15.9 H 16.0 H Plt Count 224 238 Neut % (Auto) 86.5 H 93.4 H Lymph % (Auto) 5.2 L 2.7 L [place] % (Auto) 6.7 3.3 Eos % (Auto) 1.1 L 0.0 L Baso % (Auto) 0.5 0.6 Neut # (Auto) 77192 H 27272 H Lymph # (Auto) 600 L 400 L [place] # (Auto) 800 500 Eos # (Auto) 100 0 Baso # (Auto) 100 100 PT 15.6 H INR 1.4 H APTT 34 Sodium 132 L Potassium 4.2 Chloride 102 Carbon Dioxide 25 BUN 31 H Creatinine 0.95 Estimated GFR > 60 BUN/Creatinine Ratio 32.6 H Glucose 148 H Calcium 8.5 Nasal Screen MRSA (PCR) Not detected Blood Type A Positive Antibody Screen Negative Crossmatch See Detail 09/25/24 06:20 WBC RBC Hgb 8.1 L Hct 24.5 L MCV MCH MCHC RDW Plt Count Neut % (Auto) Lymph % (Auto) [place] % (Auto) Eos % (Auto) Baso % (Auto) Neut # (Auto) Lymph # (Auto) [place] # (Auto) Eos # (Auto) Baso # (Auto) PT INR APTT Sodium Potassium Chloride Carbon Dioxide BUN Creatinine Estimated GFR BUN/Creatinine Ratio Glucose Calcium Nasal Screen MRSA (PCR) Blood Type Antibody Screen Crossmatch [facility] Medical History Subdural hematoma (2017) Osteonecrosis BMI 33.0-33.9,adult (08/2024) Normal cardiac ejection fraction Normal cardiac ejection fraction (10/2023) 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) GIB (gastrointestinal bleeding) (10/2022) Chronic anemia Aortic stenosis Atrial fibrillation/flutter (08/2023) Back pain Arthritis Spinal stenosis Eczema Impaired fasting glucose PVC (premature ventricular contraction) Long-term use of hydroxychloroquine Obesity Anxiety Panic attacks Depression Dermatitis Wart of face Osteoarthritis Rheumatoid arthritis Nocturia Postmenopausal GERD (gastroesophageal reflux disease) Hypertension Sleep apnea Motion sickness Impaired vision Head injury (~07/2017) Infection of total right knee replacement Surgical History History of hung hole surgery (2017) History of incision and drainage History of laminectomy (2012) History of total knee arthroplasty Social History household members: spouse Smoking Status: Never smoker alcohol intake: never Assessment & Plan Assessment & Plan narrative: 1. Hemorrhagic shock, new and resolved. 2. Blood loss anemia, present on admission and improved. 3. Obesity, present on admission and active. 4. Moderate aortic stenosis, present on admission and active. 5. PAF, not present on admission are active. 6. RA on chronic immunosuppression, present on admission and active. Plan: -transfer out of the unit -restart her blood pressure medications -repeat hemoglobin around noon -PT and OT Time-Based Coding :: [TOTAL MINUTES] spent with patient and on the chart (including review of chart, obtaining history, exam, reviewing outside data, placing orders, documenting exam and treatment plan, and counseling patient) on [DATE].
--- NOTE | 2024-09-25 08:49 | PC.NURSE ---
0815 - Patient extremely uncomfortable and difficult to ease despite frequent repositioning. Oxycodone 10mg given for pain rated 8/10, right hip and back. Assisted patient to chair via stand-pivot with front wheeled walker and gait belt.
--- NOTE | 2024-09-25 10:30 | PT.IIE ---
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) Surgery Performed Operation Date: 09/24/24 10:45 Actual Procedures p Total Hip Arthroplasty(Right) - Fernanda Salazar MD Surgical History (Last Reviewed 09/24/24 @ 18:17 by Rafa Ruiz MD) History of hung hole surgery (2016) History of incision and drainage History of laminectomy (2012) History of total knee arthroplasty Medical History (Last Reviewed 09/24/24 @ 18:17 by Rafa Ruiz MD) Anxiety Aortic stenosis Arthritis Atrial fibrillation/flutter (08/2023) Back pain BMI 33.0-33.9,adult (08/2024) Chronic anemia Depression Dermatitis Eczema GERD (gastroesophageal reflux disease) GIB (gastrointestinal bleeding) (10/2022) Head injury (~07/2017) 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) Hypertension Impaired fasting glucose Impaired vision Infection of total right knee replacement Long-term use of hydroxychloroquine Motion sickness Nocturia Normal cardiac ejection fraction (10/2023) Normal cardiac ejection fraction Obesity Osteoarthritis Osteonecrosis Panic attacks Postmenopausal PVC (premature ventricular contraction) Rheumatoid arthritis Sleep apnea Spinal stenosis Subdural hematoma (2016) Wart of face Physical Therapy Inpatient Evaluation/Re-Eval M1 PT/OT-IP Prior Functional Status Start: 09/25/24 13:11 Freq: NEEDED Status: Active Protocol: Document 09/25/24 10:30 AB (Rec: 09/25/24 13:30 AB [id number]) Medical Review Prior Functional Status Medical History Reviewed Yes Communication able to make needs known; has decrease memory Mobility and Gait pt stated that she was modified independent with all mobilities and ambulation using a FWW; pt stated that she sits on her 4WW and spouse pushes her to the shower on her 4WW and stays seated on 4WW for showering Social History Household Members spouse Living Arrangements House Number of Floors (Floors) One Floor Number of Stairs To Enter/Railing? has steps to enter the house but has a lift system that assists her to get into the house Home Environment Standard Height Toilet,Walk in Shower Home Equipment Front Wheel Walker,Four Wheel Walker,Manual Wheelchair, Bedside Commode,Raised Toilet Seat Without Armrests,Shower Seat without Backrest,Hand Held Shower,Oven Tender,Lift Recliner,Grab Bars Near Toilet ,Grab Bars In Shower Additional Social History Comment pt sleeps on her lift recliner M2 PT-IP Current Condition Start: 09/25/24 13:11 Freq: NEEDED Status: Active Protocol: Document 09/25/24 10:30 AB (Rec: 09/25/24 13:30 AB [id number]) Physical Therapy Current Condition Current Condition Evaluation Date 09/25/24 Treatment Diagnosis s/p R KIMBERLY posterior; difficutly in walking Onset Date 09/24/24 M3 PT-IP Subjective Start: 09/25/24 13:11 Freq: NEEDED Status: Active Protocol: Document 09/25/24 10:30 AB (Rec: 09/25/24 13:30 AB [id number]) Subjective Physical Therapy Visit Type Type Initial Evaluation Visit Start Time 10:30 Visit Stop Time 11:20 Number of MIXING ENGINEER Visits 0 Physical Therapy Visit Comments Patient Comments agreeable to do PT Therapy Pain Assessment Pain When Pain Assessed At Rest Pain Present Pain Present Pain Reported Location Right Hip Intensity 8 Scale Used Numeric (0 - 10) Pain Management Techniques Apply Cold,Distraction, Modification of Treatment,Re- positioning,Timing of Activity with Medications M4 PT-IP Mobility and Gait Start: 09/25/24 13:11 Freq: NEEDED Status: Active Protocol: Document 09/25/24 10:30 AB (Rec: 09/25/24 13:30 AB [id number]) PT-Transfer Assessment Sit to and From Stand Sit to and from Stand Maximum Assistance,2 Person Assistance,Use of Upper Extremities Equipment Transfer Assistive Device Gait Belt,Front Wheeled Walker Orthotic/Prosthetic Devices or Brace: No Comments Mobility Comments pt sitting on the chair. son in room. educated pt and son regarding pt's R hip posterior precautions. pt requiring cues for recall precautions even after repetitions. BP sittin/70. pt can get anxious easily and stated that she had a panic attack this morning. attempted sit to stand but unable with max A. pt with SOB . O2 sat checked: 97% BP checked: 138/63. pt stated that she has RA and unable to push with LUE due to RA and pain pt rested and needs cues for reassurance. NAC came in to assist. completed sit to stand from chair max A x 2 and max cues. able to ambulate ~ 2 ft using FWW max A and max cues with chair follow. presents with unsteady antalgic gait with decrease LE elevation and step length. pt sat back on chair. positioned pt on the chair. call light and table placed within reach. informed pt and son regarding current level of assistance and SNF recommendation but pt refusing. Gait Assessment Gait Gait Assistance Required: Maximum Assistance,1 Person Assist,2 Person Assist Distance (Feet) 2 Able to Maintain Weight Bearing Status Yes During Gait Assistive Devices Assistive Device Front Wheeled Walker Orthotic/Prosthetic Devices or Brace: No Gait Deviations General Gait Pattern Antalgic,Decreased Stride Length,Decreased Feet Clearance,Step-to Gait Factors Limiting Gait Function Factors Limiting Gait Function Decreased Activity Tolerance, Decreased Strength,Difficulty Following Directions,Limited Range of Motion,Pain,Poor Balance,Poor Safety Awareness PT-Balance Assessment Sitting Balance and Reactions Static Sitting Balance Ability Fair Dynamic Sitting Balance Ability Fair Standing Balance and Reactions Static Standing Balance Ability Poor Dynamic Standing Balance Ability Poor Device Used FWW M5 PT-IP Objective Assessments Start: 09/25/24 13:11 Freq: NEEDED Status: Active Protocol: Document 09/25/24 10:30 AB (Rec: 09/25/24 13:30 AB [id number]) Orientation Orientation/Cognition Level of Alertness Alert Orientation Name,Place,Situation Language Function Ability Hard of Hearing Safety Awareness Decreased Safety Awareness Memory Description Short Term Impaired Strength Lower Extremity Strength Assessment Bilaterally Impaired Hip 3+/5 Knee 3+/5 Muscle Tone Muscle Tone WNL Yes M6 PT-IP Treatment Start: 09/25/24 13:11 Freq: NEEDED Status: Active Protocol: Document 09/25/24 10:30 AB (Rec: 09/25/24 13:30 AB [id number]) Physical Therapy Treatment Education Education Provided Precautions,Weight Bearing Status,Post-Op Packet,Safety M7 PT-IP Assessment and Plan Start: 09/25/24 13:11 Freq: NEEDED Status: Active Protocol: Document 09/25/24 10:30 AB (Rec: 09/25/24 13:30 AB [id number]) PT Summary Assessment and Plan Potential Rehabilitation Potential Fair Status of Condition at Evaluation Evolving Summary Impairments Pain,ROM,Strength,Balance, Coordination,Sensation,Tone, Cognition,Bed Mobility, Transfers,Gait,Activity Tolerance Assessment Summary pt is a 73 y/o F s/p R KIMBERLY posterior approach POD 1. pt has R hip posterior precautions and is WBAT. pt requiring max A x 2 for sit to stand and only able to ambulate ~ 2ft using FWW max A x1-2 and max cues. pt required max cues for hip precautions. pt currently will need 24/ assist and 2 person max A. will continue to assess progress. informed pt regarding SNF recommendation but pt refusing at this time. Goals Transfer Goal Minimal Assistance,Front Wheeled Walker Gait Goal Minimal Assistance,Front Wheel Walker Gait Distance 100 Days to Meet Goals 10 Frequency of Treatment Other frequency 1-2/day Treatment Plan Physical Therapy Treatment Plan Bed Mobility Training,Transfer Training,Gait Training, Therapeutic Exercise,Balance Retraining,Post Op Education, Discharge Planning,Hot or Cold Pack,Neuromuscular Re-ed, Coordination Retraining,Manual Therapy Precautions Posterior Hip Precautions No Hip Flexion > 90 degrees,No Hip Internal Rotation,No Hip Adduction Weight Bearing Status Weight Bearing Status Weight Bear as Tolerated Allowed Weight Bearing Amount (enter % RLE WBAT or #) (%) Recommendations To Nursing Amount of Assist Needed 2 Person Assist Discharge Recommendations PT Discharge Recommendations SNF Rehab Transportation Needs at Discharge Wheelchair/Cabulance
[2024-09-25] MEDS: METOPROLOL IR 25 MG TABLET PO ×2 (12:21→20:13)
--- NOTE | 2024-09-25 12:21 | CM.DANOTE ---
Initial DCP Assessment Note Pt is a 73 yo female, resident of [place], s/p right KIMBERLY, post operative complication of hemorrhagic shock- medicine consulted and following. PCP: Sheila Ross Payer: Ashok PHIPPS Reviewed chart, pt discussed in multidisciplinary rounds this morning. Met w/patient and her son Aashish at bedside, OT Debbie finishing a brief session with patient. Patient reports living with spouse independently, mod indp with poor activity tolerance. Patient plans to return home w/sp and supportive family to assist throughout recovery. Patient has hx of infected knee prosthetic and has hx of home infusion (agency unknown) [facility] and [facility]. Discussed HH PT vs outpatient PT; patient is hopeful to make her outpatient PT appointment scheduled next week instead of using HH. This HAT BODY INSPECTOR and OT suggested waiting until after patient's inpatient therapy sessions to make a decision. Plan: Discharge home w/family and HH PT vs outpatient PT anticipated. CM team will plan to follow clinical course closely. AMBIKA Nelson Discharge Planning/Care Management CM Discharge Assessment Start: 09/25/24 12:15 Freq: Status: Active Protocol: Document 09/25/24 12:15 REED (Rec: 09/25/24 12:21 REED [id number]) Discharge Planning Assessment Assigned [place] [facility] AMBIKA Finch DPOA/Assigned Designee Name yoli Graham Contact Information [phone] Advance Directives? Yes Advance Directives on File No History Provided By Patient,Medical Record Prior Living Arrangements House Household Members spouse Type of transporation used prior to Relies on Others admit Independent with ADL's Yes: Mod Indp, poor activity tolerance Is patient alert and oriented? Yes Needs Assistance With Bathing,Meal Prep,Toileting, Home Chores / Shopping Comment Walk in shower, walker. Patient/Family Preference Home with Home Health,OP PT Therapy Barriers to Discharge No Comment Medically complex. Hx [facility], [facility], home infusion Discharge Plan Home Transportation Arrangement Family Additional Comment R/o need for HH, patient unsure she will need HH. Would like to go to outpatient PT if possible. Whiteboard Updated in Patient Room with Yes name and ext. # of [facility]
[2024-09-25 12:52] VITALS: BP 138/63; PULSE 118; RESP 23; O2SAT 95
[2024-09-25 13:00] VITALS: TEMP 37.1
--- NOTE | 2024-09-25 13:40 | PT.IPTN ---
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) Surgery Performed Operation Date: 09/24/24 10:45 Actual Procedures p Total Hip Arthroplasty(Right) - Fernanda Salazar MD Physical Therapy Treatment Note M2 PT-IP Current Condition Start: 09/25/24 13:11 Freq: NEEDED Status: Active Protocol: Document 09/25/24 10:30 AB (Rec: 09/25/24 13:30 AB [id number]) Physical Therapy Current Condition Current Condition Evaluation Date 09/25/24 Treatment Diagnosis s/p R KIMBERLY posterior; difficutly in walking Onset Date 09/24/24 M3 PT-IP Subjective Start: 09/25/24 13:11 Freq: NEEDED Status: Active Protocol: Document 09/25/24 13:40 AB (Rec: 09/25/24 15:48 AB [id number]) Subjective Physical Therapy Visit Type Type Treatment Note Visit Start Time 13:40 Visit Stop Time 14:17 Number of DRAWER IN HAND Visits 0 Physical Therapy Visit Comments Patient Comments agreeable to do PT Therapy Pain Assessment Pain When Pain Assessed At Rest Pain Present Pain Present Pain Reported Location Right Hip Intensity 5 Scale Used Numeric (0 - 10) Pain Management Techniques Apply Cold,Distraction, Modification of Treatment,Re- positioning,Timing of Activity with Medications M4 PT-IP Mobility and Gait Start: 09/25/24 13:11 Freq: NEEDED Status: Active Protocol: Document 09/25/24 13:40 AB (Rec: 09/25/24 15:48 AB [id number]) PT-Transfer Assessment Sit to and From Stand Sit to and from Stand Moderate Assistance,2 Person Assistance,Use of Upper Extremities Equipment Transfer Assistive Device Gait Belt,Front Wheeled Walker Comments Mobility Comments pt sitting on the chair. OT in room. Co-tx with OT cue to pt's medical complexities. spouse in room. asked pt regarding hip precautions but unable to recall. reviewed posterior hip precautions with pt and spouse. BP: 138/63. pt completed sit to stand from chair mod A x 2 and max cues for hip precautions. pt ambulated using FWW max A and max cues ~ 3 ft and with chair follow. pt refused further ambulation and wanted to rest. noticed spouse using 2 walking sticks for mobility and stated that he only uses them for long distance ambulation and that he can assist pt at home and he has been assisting pt for the last 8 months. caregiver training set up for tomorrow at 1030am. left pt with OT. Gait Assessment Gait Gait Assistance Required: Maximum Assistance,1 Person Assist Distance (Feet) 3 Able to Maintain Weight Bearing Status Yes During Gait Assistive Devices Assistive Device Gait Belt,Front Wheeled Walker Gait Deviations General Gait Pattern Antalgic,Decreased Stride Length,Decreased Feet Clearance,Step-to Gait Factors Limiting Gait Function Factors Limiting Gait Function Decreased Activity Tolerance, Decreased Strength,Difficulty Following Directions, Incoordination,Limited Range of Motion,Pain,Poor Balance, Poor Safety Awareness M5 PT-IP Objective Assessments Start: 09/25/24 13:11 Freq: NEEDED Status: Active Protocol: Document 09/25/24 10:30 AB (Rec: 09/25/24 13:30 AB [id number]) Orientation Orientation/Cognition Level of Alertness Alert Orientation Name,Place,Situation Language Function Ability Hard of Hearing Safety Awareness Decreased Safety Awareness Memory Description Short Term Impaired Strength Lower Extremity Strength Assessment Bilaterally Impaired Hip 3+/5 Knee 3+/5 Muscle Tone Muscle Tone WNL Yes M6 PT-IP Treatment Start: 09/25/24 13:11 Freq: NEEDED Status: Active Protocol: Document 09/25/24 13:40 AB (Rec: 09/25/24 15:48 AB [id number]) Physical Therapy Treatment Education Education Provided Precautions,Safety M7 PT-IP Assessment and Plan Start: 09/25/24 13:11 Freq: NEEDED Status: Active Protocol: Document 09/25/24 13:40 AB (Rec: 09/25/24 15:48 AB [id number]) PT Summary Assessment and Plan Potential Rehabilitation Potential Fair Summary Impairments Pain,ROM,Strength,Balance, Coordination,Sensation,Tone, Cognition,Bed Mobility, Transfers,Gait,Activity Tolerance Progress Towards Goals Slow Progress due to Medical Issues,Slow Progress due to Activity Tolerance Assessment Summary pt continues to require 2 person assist for mobility and has decrease activity tolerance. pt only able to ambulate ~ 3ft using FWW. pt continues to refuse SNF. caregiver training set up for tomorrow at 1030am. will continue to assess for safe d/ c plan. Goals Transfer Goal Minimal Assistance,Front Wheeled Walker Gait Goal Minimal Assistance,Front Wheel Walker Gait Distance 100 Days to Meet Goals 10 Frequency of Treatment Other frequency 1-2/day Treatment Plan Physical Therapy Treatment Plan Bed Mobility Training,Transfer Training,Gait Training, Therapeutic Exercise,Balance Retraining,Post Op Education, Discharge Planning,Hot or Cold Pack,Neuromuscular Re-ed, Coordination Retraining,Manual Therapy Precautions Posterior Hip Precautions No Hip Flexion > 90 degrees,No Hip Internal Rotation,No Hip Adduction Weight Bearing Status Weight Bearing Status Weight Bear as Tolerated Allowed Weight Bearing Amount (enter % RLE WBAT or #) (%) Discharge Recommendations PT Discharge Recommendations SNF Rehab Transportation Needs at Discharge Wheelchair/Cabulance
--- NOTE | 2024-09-25 14:15 | OT.IP.EVAL ---
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) Hypertension Impaired fasting glucose Impaired vision Infection of total right knee replacement Long-term use of hydroxychloroquine Motion sickness Nocturia Normal cardiac ejection fraction (10/2023) Normal cardiac ejection fraction Obesity Osteoarthritis Osteonecrosis Panic attacks Postmenopausal PVC (premature ventricular contraction) Rheumatoid arthritis Sleep apnea Spinal stenosis Subdural hematoma (2016) Wart of face Surgical History (Last Reviewed 09/24/24 @ 18:17 by Rafa Ruiz MD) History of hung hole surgery (2016) History of incision and drainage History of laminectomy (2012) History of total knee arthroplasty Occupational Therapy Inpatient Evaluation/Re-Eval M1 PT/OT-IP Prior Functional Status Start: 09/25/24 13:11 Freq: NEEDED Status: Active Protocol: Document 09/25/24 14:24 [facility] (Rec: 09/25/24 14:41 [facility] [id number]) Medical Review Prior Functional Status Medical History Reviewed Yes Communication able to make needs known; has decrease memory Mobility and Gait pt stated that she was modified independent with all mobilities and ambulation using a FWW; pt stated that she sits on her 4WW and spouse pushes her to the shower on her 4WW and stays seated on 4WW for showering Activities of Daily Living and IADL's Pt states assist with showering and dressing needs as needed. Social History Household Members spouse Living Arrangements House Number of Floors (Floors) One Floor Number of Stairs To Enter/Railing? has steps to enter the house but has a lift system that assists her to get into the house Home Environment Standard Height Toilet,Walk in Shower Home Equipment Front Wheel Walker,Four Wheel Walker,Manual Wheelchair, Bedside Commode,Raised Toilet Seat Without Armrests,Shower Seat without Backrest,Hand Held Shower,Long Handled Sponge,Air/Ocean Export Clerk,Sock Aid,Lift Recliner,Grab Bars Near Toilet ,Grab Bars In Shower Additional Social History Comment pt sleeps on her lift recliner M2 OT-IP Current Condition Start: 09/25/24 14:24 Freq: Status: Active Protocol: Document 09/25/24 14:24 [facility] (Rec: 09/25/24 14:41 [facility] [id number]) Occupational Therapy Current Condition Current Condition Evaluation Date 09/25/24 Treatment Diagnosis S/P R KIMBERLY Posterior approach Diagnosis Onset Date 09/24/24 Post Operative Precautions Posterior Hip Precautions No Hip Flexion > 90 degrees,No Hip Internal Rotation,No Hip Adduction M3 OT- IP Subjective and Pain Start: 09/25/24 14:24 Freq: Status: Active Protocol: Document 09/25/24 14:24 [facility] (Rec: 09/25/24 14:41 [facility] [id number]) OT- Subjective Occupational Therapy Visit Type Type Initial Evaluation Visit Start Time 09:00 Visit Stop Time 14:15 Notes Pt seen for split treatment [id number] and [id number]. Occupational Therapy Visit Comments Patient Comments Pt agreed to get up. Pt's present in the room. Patient/Caregiver Goals Pt adamant of going home. Pt's open for pt to do skilled rehab if he is not able to provide enough care for her. Pt's uses trekking poles to get around himself. OT Pain Assessment Pain When Pain Assessed At Rest Pain Present Pain Present Pain Reported Location Right Hip Intensity 2 Scale Used Numeric (0 - 10) M4 OT- IP ADL's Start: 09/25/24 14:24 Freq: Status: Active Protocol: Document 09/25/24 14:24 [facility] (Rec: 09/25/24 14:41 [facility] [id number]) OT [id number] General Evaluation Self-Feeding Ability Standby Assistance Comments OT Self-Feeding Comments Set-up. OT ADL-Grooming Comments OT Grooming Comments Set-up while seated. OT ADL-Oral Care Comments Oral Care Comments Not performed. OT ADL-Dressing General Eval Lower Body Dressing Ability Maximum Assistance Comments OT Dressing Comments Pt will need assist for all LB dressing needs and use of LB dressing equipment so able to follow her hip precautions. OT ADL-Toileting Comments OT Toileting Comments Pt will need extensive assist at this time. OT ADL-Bathing Comments OT Bathing Comments Pt will need assist. M5 OT- IP IADL's Start: 09/25/24 14:24 Freq: Status: Active Protocol: Document 09/25/24 14:24 [facility] (Rec: 09/25/24 14:41 [facility] [id number]) OT-Instrumental Activities of Daily Living Home Safety Awareness Home Safety Comments Pt is adamant of going home. Medication Management Medication Management Comments Pt uses a pill organizer at home. Money Management Money Management Comments Pt states does her bills, but best at this time to have assist. Meal Preparation Meal Preparation Caregiver Provides Assist Icicle Machine Operator Icicle Machine Operator Caregiver Provides Assist M6 OT- IP Functional Cognition Start: 09/25/24 14:24 Freq: Status: Active Protocol: Document 09/25/24 14:24 [facility] (Rec: 09/25/24 14:41 [facility] [id number]) Cognitive Factors Limiting Selfcare Function Cognitive Ability Level of Alertness Alert Patient Orientation Name,Place,Situation Attention Span Ability Capable of Focused Attention Ability to Follow Commands Able to Follow One Step Commands with Increased Time, Able to Follow One Step Commands with Repetition Memory Description Short Term Impaired Safety Awareness Decreased Recall of Precautions,Decreased Ability to Apply Precautions Cognitive Comments Cognitive Assessment Comments Pt needing concrete vc to follow and vc for hand and leg placement when coming to stand and sitting back down. OT- Vision and Hearing OT- Hearing Assessment OT- Hearing Assessment WFL OT- Vision Assessment Visual Acuity Glasses All The Time Visual Attentiveness WFL Occular Pursuits WFL M7 OT- IP Mobility and Balance Start: 09/25/24 14:24 Freq: Status: Active Protocol: Document 09/25/24 14:24 [facility] (Rec: 09/25/24 14:41 [facility] [id number]) OT-Transfer Assessment Sit to and From Stand Sit to and from Stand Moderate Assistance,2 Person Assistance Transfers Transfer Ability Maximum Assistance,1 Person Assistance Comments Mobility Comments MODA X2 to stand to the FWW. MAX AX 1 to walk a few steps and close follow of recliner behind her. OT- Balance Assessment Sitting Balance and Reactions Static Sitting Balance Ability Good Dynamic Sitting Balance Ability Fair Standing Balance and Reactions Static Standing Balance Ability Poor Dynamic Standing Balance Ability Poor M8 OT- IP Objective Assessments Start: 09/25/24 14:24 Freq: Status: Active Protocol: Document 09/25/24 14:24 [facility] (Rec: 09/25/24 14:41 [facility] [id number]) OT Gross Range of Motion Upper Extremity Range of Motion Assessment Bilaterally Impaired ROM Impairments Pt has bilateral shoulder arthritis M9 OT- IP Assessment and Plan Start: 09/25/24 14:24 Freq: Status: Active Protocol: Document 09/25/24 14:24 [facility] (Rec: 09/25/24 14:41 [facility] [id number]) OT Summary Assessment and Plan Potential Rehabilitation Potential Good Analytic Complexity at Evaluation Moderate Summary OT Impairments Pain,Range of Motion,Strength, Balance,Functional Cognition, Functional Mobility,Grooming, Dressing,Toileting,Bathing, Toilet Transfers,Shower Transfers,Activity Tolerance Progress Towards Goals Slow Progress due to Pain,Slow Progress due to Medical Issues,Slow Progress due to Activity Tolerance,Slow Progress due to Cognition Assessment Summary Pt MOD complexity and main barriers are steps, pt needing extensive two person for mobility needs at this time. Pt just able to recall 1/3 hip precautions and at ths end of the OT eval 2/3 hip precautions. Pt's would greatly benefit from skilled rehab to work on incorporating her hip precautions for ADL and mobility needs. Pt's uses trekking poles to walk with and will not be able provide lots of assist. Pt is adamant to go home but at this time best for pt to go to skilled rehab pending caregiver training with PT tomorrow. Goals Self-Feeding Goal Standby Assistance Grooming Goal Standby Assistance Dressing Goal Minimal Assistance Toileting Goal Moderate Assistance Bathing Goal Moderate Assistance Toilet Transfer Goal Contact Guard Assistance Shower Transfer Goal Contact Guard Assistance Days to Meet Goals 15 Frequency of Treatment Other frequency 5x/week Treatment Plan OT Treatment Plan ADL Training,Functional Mobility,Patient/Family Education,Discharge Planning Discharge Recommendations OT Discharge Recommendations SNF Rehab Other Discharge Recommendations Pending progress and caregiver training- home with 29/04 assist and home health Transportation Needs at Discharge Wheelchair/Cabulance
[2024-09-25] MEDS: ACETAMINOPHEN 325 MG TABLET 650 MG PO (15:48)
[2024-09-25 16:08] VITALS: BP 110/58; PULSE 104; RESP 22; TEMP 36.9; O2SAT 96
--- NOTE | 2024-09-25 16:36 | PM.PNPO.1 ---
Subjective Subjective Interval history: Alivia hagen pleasant 73-year-old female who is POD#1 s/p complex right total hip arthroplasty with acetabular augment by Dr. Salazar. The patient had a significant blood loss and was hypotensive postoperatively. She also has a history of obesity, moderate aortic stenosis, and QUIRINO. She required boluses of Herminio-Synephrine in the postoperative phase to maintain her blood pressure. Her case started out with a spinal and then was augmented with a general anesthetic. The patient was transferred to the ICU from PACU yesterday with a right IJ in place and was on a Herminio-Synephrine drip upon arrival. She was given 1 unit PRBC yesterday as well. The patient reports that this morning she still felt woozy but now she is feeling better, her pressures have stabilized and the patient was transferred to the acute care unit. This evening patient reports she is doing well, she has been able to mobilize some with both PT and OT. She able to safely transfer from bedside chair to bed, she also reports she was able to take 7 steps in a row with PT today. She still has Gore in place as she has not felt that she has gained enough mobility yet to get to the bathroom. She would like to discharge to home tomorrow with her if she progresses well with PT. She has no steps in the house, she has a walker at home already. She has postop physical therapy scheduled with our office but is also interested in some home health PT. Plans on having her be present for caregiver training with physical therapy tomorrow at 10:30 a.m.. Denies fever, chills, chest pain, SOB, nausea, vomiting. Denies any feelings of lightheadedness. Exam Vital Signs (past 8 hours): - 09/25/24 12:52 09/25/24 13:00 09/25/24 16:08 Temperature 98.8 F 98.4 F Pulse Rate 118 H 104 H Respiratory Rate 23 22 Blood Pressure 138/63 110/58 L Pulse Oximetry 95 96 Oxygen Flow Rate 0 0 Oxygen Delivery Method Room Air,CPAP Oxygen Flow Rate 0 Narrative Exam Narrative: Observed patient transfering from chair to bed today prior to interview she then was laying comfortably in bed during our interview today. No acute distress. AOx3. Grossly normal alignment of the RLE, mild-moderate swelling throughout the right lower extremity. 5/5 strength with DF, PF, EHL, knee flexion and extension bilaterally. Gross sensation intact throughout bilateral lower extremities. Calves soft and non-tender bilaterally. SCDs are on and functioning. Brisk capillary refill, pulses intact. Post-surgical Lizeth dressing clean, dry and intact over the right posterior hip without drainage. Objective Labs 09/25/24 06:20 09/24/24 16:30 Labs: Laboratory Results - last 24 hr 09/24/24 09/24/24 09/25/24 16:30 18:17 01:17 WBC 12.4 H 15.2 H RBC 2.51 L 3.08 L Hgb 7.3 L 9.0 L Hct 22.3 L 26.7 L MCV 88.9 86.6 MCH 29.2 29.2 MCHC 32.8 33.7 RDW 15.9 H 16.0 H Plt Count 224 238 Neut % (Auto) 86.5 H 93.4 H Lymph % (Auto) 5.2 L 2.7 L Boundary % (Auto) 6.7 3.3 Eos % (Auto) 1.1 L 0.0 L Baso % (Auto) 0.5 0.6 Neut # (Auto) 46451 H 29015 H Lymph # (Auto) 600 L 400 L Boundary # (Auto) 800 500 Eos # (Auto) 100 0 Baso # (Auto) 100 100 PT 15.6 H INR 1.4 H APTT 34 Sodium 132 L Potassium 4.2 Chloride 102 Carbon Dioxide 25 BUN 31 H Creatinine 0.95 Estimated GFR > 60 BUN/Creatinine Ratio 32.6 H Glucose 148 H Calcium 8.5 Nasal Screen MRSA (PCR) Not detected Blood Type A Positive Antibody Screen Negative Crossmatch See Detail 09/25/24 06:20 WBC RBC Hgb 8.1 L Hct 24.5 L MCV MCH MCHC RDW Plt Count Neut % (Auto) Lymph % (Auto) Boundary % (Auto) Eos % (Auto) Baso % (Auto) Neut # (Auto) Lymph # (Auto) Boundary # (Auto) Eos # (Auto) Baso # (Auto) PT INR APTT Sodium Potassium Chloride Carbon Dioxide BUN Creatinine Estimated GFR BUN/Creatinine Ratio Glucose Calcium Nasal Screen MRSA (PCR) Blood Type Antibody Screen Crossmatch [facility] Medical History Subdural hematoma (2016) Osteonecrosis BMI 33.0-33.9,adult (08/2024) Normal cardiac ejection fraction Normal cardiac ejection fraction (10/2023) 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) GIB (gastrointestinal bleeding) (10/2022) Chronic anemia Aortic stenosis Atrial fibrillation/flutter (08/2023) Back pain Arthritis Spinal stenosis Eczema Impaired fasting glucose PVC (premature ventricular contraction) Long-term use of hydroxychloroquine Obesity Anxiety Panic attacks Depression Dermatitis Wart of face Osteoarthritis Rheumatoid arthritis Nocturia Postmenopausal GERD (gastroesophageal reflux disease) Hypertension Sleep apnea Motion sickness Impaired vision Head injury (~07/2017) Infection of total right knee replacement Surgical History History of hung hole surgery (2016) History of incision and drainage History of laminectomy (2012) History of total knee arthroplasty Social History household members: spouse Smoking Status: Never smoker alcohol intake: never Assessment & Plan Post-op Postoperative Procedures: Procedures Operation Date: 09/24/24 10:45 Actual Procedure Side Surgeon p Total Hip Arthroplasty Right Fernanda Salazar MD Postoperative plan narrative: 1) Plan to discharge to home tomorrow with pending PT evaluation. 2) Continue multimodal pain management with ice to the hip for additional pain control. 3) Will resume Xarelto tomorrow for DVT prophylaxis. SCDs to be on and functioning while patient is in bed. 4) Continue to work w/ physical therapy to work on range of motion and mobility. If progressing well w/ PT tomorrow we will plan to remove her Gore catheter in the a.m. patient is also interested in CM help with setting up home health PT for the 1st few PT sessions postoperatively. 5) Keep dressing intact, clean, dry until 2 week postop appointment. No soaking the incision site in pools or tubs. No topical ointments or creams to the incision site. 6) Follow up at [facility] orthopedics in 2 weeks for a postop appointment and wound check. All patient's questions were answered, she demonstrates understanding and is in agreement with the plan. Call our office if any questions or concerns arise.
[2024-09-25] MEDS: ONDANSETRON 4 MG ODT PO (18:37)
[2024-09-25 20:00] VITALS: BP 119/61; PULSE 120; RESP 22; TEMP 36.1; O2SAT 93
[2024-09-25] MEDS: cephALEXin 250 MG CAPSULE 500 MG PO (20:13)
[2024-09-25] MEDS: PRAMIPEXOLE 0.25 MG TABLET 0.5 MG PO (20:13)
[2024-09-25] MEDS: GABAPENTIN 100 MG CAPSULE PO (20:13)
[2024-09-26] VITALS (11 sets, daily range): BP systolic 107–154; BP diastolic 56–86; PULSE 107–120; RESP 16–24; TEMP 36.2–36.7; O2SAT 95–98
[2024-09-26] MEDS: ACETAMINOPHEN 325 MG TABLET 650 MG PO ×2 (04:22→14:06)
[2024-09-26] MEDS: OXYCODONE IR 10 MG TABLET PO ×3 (04:22→21:36)
[2024-09-26 05:18] LABS: Add Manual Diff / Slide Review NO; Basophils Absolute Auto 0 /uL (0-100); Basophils Percent Auto 0.2 % (0-2); Eosinophils Absolute Auto 100 /uL (0-450); Eosinophils Percent Auto 1.1 % (2-4); Hematocrit 22.5 % (36-46); Hemoglobin 7.4 g/dL (12.0-16.0); Lymphocytes Absolute Auto 1100 /uL (1100-4500); Lymphocytes Percent Auto 8.1 % (25-40); Mean Corpuscular HGB Conc 33.1 % (30-36); Mean Corpuscular Hemoglobin 29.3 PG (26-34); Mean Corpuscular Volume 88.8 fL (80-100); Monocytes Absolute Auto 1500 /uL (0-900); Monocytes Percent Auto 10.6 % (3-14); Neutrophils Absolute Auto 10900 /uL (1500-7000); Platelet Count 192 X10^3/uL (150-400); Red Blood Cell Count 2.54 X10^6/uL (4.0-5.2); Red Cell Distribution Width 16.1 % (11.6-14.8); White Blood Cell Count 13.7 X10^3/uL (4.5-11.0)
[2024-09-26] MEDS: polyethylene glycoL 3350 17 GM POWD.PACK PO (09:16)
[2024-09-26] MEDS: HYDROXYCHLOROQUINE 200 MG TABLET 400 MG PO (09:16)
[2024-09-26] MEDS: DIGOXIN 0.125 MG TABLET PO (09:16)
[2024-09-26] MEDS: FERROUS SULFATE 325 MG TABLET PO (09:16)
[2024-09-26] MEDS: OXYCODONE IR 5 MG TABLET PO ×2 (09:17→18:37)
[2024-09-26] MEDS: METOPROLOL IR 25 MG TABLET PO ×2 (09:17→21:36)
[2024-09-26] MEDS: SERTRALINE 50 MG TABLET 25 MG PO (09:17)
[2024-09-26] MEDS: CALCIUM CARBONATE 500 MG TAB PO (09:18)
[2024-09-26] MEDS: cephALEXin 250 MG CAPSULE 500 MG PO ×3 (09:18→21:35)
[2024-09-26] MEDS: DOCUSATE 100 MG CAPSULE PO ×2 (09:18→21:35)
[2024-09-26] MEDS: CHOLECALCIFEROL (VITAMIN D3) 1,000 UNIT TABLET 2000 UNIT PO (09:18)
[2024-09-26] MEDS: MULTIVITAMIN 1 TABLET 1 TAB PO (09:18)
[2024-09-26] MEDS: PANTOPRAZOLE DR 40 MG TABLET PO (09:18)
[2024-09-26] MEDS: ASCORBIC ACID 500 MG TABLET 250 MG PO (09:18)
--- NOTE | 2024-09-26 10:20 | PT.IPTN ---
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) Surgery Performed Operation Date: 09/24/24 10:45 Actual Procedures p Total Hip Arthroplasty(Right) - Fernanda Mckenna MD Physical Therapy Treatment Note M2 PT-IP Current Condition Start: 09/25/24 13:11 Freq: NEEDED Status: Active Protocol: Document 09/25/24 10:30 AB (Rec: 09/25/24 13:30 AB [id number]) Physical Therapy Current Condition Current Condition Evaluation Date 09/25/24 Treatment Diagnosis s/p R KIMBERLY posterior; difficutly in walking Onset Date 09/24/24 M3 PT-IP Subjective Start: 09/25/24 13:11 Freq: NEEDED Status: Active Protocol: Document 09/26/24 10:20 AB (Rec: 09/26/24 13:08 AB [id number]) Subjective Physical Therapy Visit Type Type Treatment Note Visit Start Time 10:20 Visit Stop Time 11:20 Notes talked with nurse regarding pt 's decrease in H&H. ortho MD/ PA has not seen pt yet for today. PT about to check on pt and Dr. Mckenna just came in room to check on pt. Talked to Dr. Mckenna and stated that pt can do PT despite decrease in H&H and not sure if pt will get transfusion. After a few minutes, Dr. mckenna came back to talk to pt and informed that pt will get one unit of blood but is ok to move with PT this morning. Number of GRAPHIC COORDINATOR Visits 0 Physical Therapy Visit Comments Patient Comments agreed to do PT Therapy Pain Assessment Pain When Pain Assessed At Rest Pain Present Pain Present Pain Reported Location Right Hip Intensity 2 Scale Used Numeric (0 - 10) M4 PT-IP Mobility and Gait Start: 09/25/24 13:11 Freq: NEEDED Status: Active Protocol: Document 09/26/24 10:20 AB (Rec: 09/26/24 13:08 AB [id number]) PT-Bed Mobility Assessment Supine to Sit Supine to Sit Maximum Assistance,1 Person Assistance,Head of Bed Elevated,Bedrails PT-Transfer Assessment Sit to and From Stand Sit to and from Stand Maximum Assistance,1 Person Assistance,2 Person Assistance ,Use of Upper Extremities Equipment Transfer Assistive Device Gait Belt,Front Wheeled Walker Orthotic/Prosthetic Devices or Brace: No Transfers Transfer Destination Bed,Chair Transfer Technique Stand Step Pivot Transfer Ability Level of Assist Maximum Assistance,1 Person Assistance,2 Person Assistance ,Use of Upper Extremities Comments Mobility Comments checked on pt and spouse in room. BP in supine: 103/53. reviewed posterior hip precautions and pt continues not able to recall. educated pt and spouse again regarding R hip posterior precutions. pt completed supine to sit max A and max cues. mod A for sitting balance on EOB with assist to decrease retrolean. BP checked: 126/65. pt stated that she will be sleeping on her lift chair at home. caregiver training conducted. spouse was able to put safety belt on pt. educated spouse on how to assist pt but spouse stated that he knows how to assist pt . spouse assisted pt with sit to stand by pulling on pt from the front using gait belt. pt completed stand pivot transfer using FWW max A x 1 + min A x1. pt presents with increase B knee flexion and increase trunk flexion. cued to correct. educated spouse on safety and to assist pt by being beside the pt but spouse refused and stated that he has his way of assisting pt and that he thinks it is the safest way. spouse resistant to suggestions. pt completed chair<> bed transfers x 3. spouse assisted pt and PT proving CGA to min A. pt stayed seated on the chair. educated pt on standing position and steadiness and understood. pt tends to have RLE forward even in standing affecting stability. pt completed another sit to stand from the chair with spouse assisting. pt able to move RLE backwards within level of LLE for steadiness and was able to stand up straighter. pt sat back on chair. positioned pt on the chair. call light and table placed within reach. informed pt and spouse regarding safety and use of w/ c at this time for mobility and FWW for transfers. also asked pt if her son can be at home to assist and pt stated that son can be in until saturday to assist. both understood. pt also agreed to have HHPT. in M5 PT-IP Objective Assessments Start: 09/25/24 13:11 Freq: NEEDED Status: Active Protocol: Document 09/25/24 10:30 AB (Rec: 09/25/24 13:30 AB [id number]) Orientation Orientation/Cognition Level of Alertness Alert Orientation Name,Place,Situation Language Function Ability Hard of Hearing Safety Awareness Decreased Safety Awareness Memory Description Short Term Impaired Strength Lower Extremity Strength Assessment Bilaterally Impaired Hip 3+/5 Knee 3+/5 Muscle Tone Muscle Tone WNL Yes M6 PT-IP Treatment Start: 09/25/24 13:11 Freq: NEEDED Status: Active Protocol: Document 09/26/24 10:20 AB (Rec: 09/26/24 13:08 AB [id number]) Physical Therapy Treatment Education Education Provided Precautions,Weight Bearing Status,Safety M7 PT-IP Assessment and Plan Start: 09/25/24 13:11 Freq: NEEDED Status: Active Protocol: Document 09/26/24 10:20 AB (Rec: 09/26/24 13:08 AB [id number]) PT Summary Assessment and Plan Potential Rehabilitation Potential Fair Summary Impairments Pain,ROM,Strength,Balance, Coordination,Sensation,Tone, Cognition,Bed Mobility, Transfers,Gait,Activity Tolerance Progress Towards Goals Slow Progress due to Medical Issues,Slow Progress due to Activity Tolerance Assessment Summary caregiver training conducted. spouse not receptive to suggestions. pt was able to transfer using FWW with spouse assisting max A but PT also provided some assistance min A . pt's son can be available to assist pt for a few days per pt. pt adamant about going home and not going to SNF. educated on recommendation: use of w/c for mobility. pt also will need HHPT. Goals Transfer Goal Minimal Assistance,Front Wheeled Walker Gait Goal Minimal Assistance,Front Wheel Walker Gait Distance 100 Days to Meet Goals 10 Frequency of Treatment Other frequency 1-2/day Treatment Plan Physical Therapy Treatment Plan Bed Mobility Training,Transfer Training,Gait Training, Therapeutic Exercise,Balance Retraining,Post Op Education, Discharge Planning,Hot or Cold Pack,Neuromuscular Re-ed, Coordination Retraining,Manual Therapy Precautions Posterior Hip Precautions No Hip Flexion > 90 degrees,No Hip Internal Rotation,No Hip Adduction Weight Bearing Status Weight Bearing Status Weight Bear as Tolerated Allowed Weight Bearing Amount (enter % RLE WBAT or #) (%) Recommendations To Nursing Amount of Assist Needed 2 Person Assist Discharge Recommendations PT Discharge Recommendations SNF Rehab Transportation Needs at Discharge Wheelchair/Cabulance
--- NOTE | 2024-09-26 10:42 | PM.PNPO.1 ---
Subjective Subjective Interval history: Alivia hagen pleasant 73-year-old female who is POD#2 s/p complex right total hip arthroplasty with acetabular augment by Dr. Salazar. The patient had a significant blood loss and was hypotensive postoperatively. She also has a history of obesity, moderate aortic stenosis, and QUIRINO. She required boluses of Herminio-Synephrine in the postoperative phase to maintain her blood pressure. Her case started out with a spinal and then was augmented with a general anesthetic. The patient was transferred to the ICU from PACU after surgery with a right IJ in place and was on a Herminio-Synephrine drip upon arrival. She was given 1 unit PRBC , she tolerated well and she was then transferred to the acute care unit. The patient reports that this morning she is feeling better, her pressures have stabilized but she is still tachycardic. She has been able to mobilize some with both PT and OT. She able to safely transfer from bedside chair to bed, PT currently recomending 2 person assist. She still has Gore in place as she has not felt that she has gained enough mobility yet to get to the bathroom. She would like to discharge to home tomorrow with her if she progresses well with PT. She has no steps in the house, she has a walker at home already. She has postop physical therapy scheduled with our office but is also interested in some home health PT. Her be present for caregiver training with physical therapy today at 10:30 a.m.. Denies fever, chills, chest pain, SOB, nausea, vomiting. Denies any feelings of lightheadedness. Exam Vital Signs (past 8 hours): - 09/26/24 04:00 09/26/24 08:00 09/26/24 09:16 Temperature 97.5 F L 97.9 F Pulse Rate 120 H 118 H 115 H Respiratory Rate 24 20 Blood Pressure 111/56 L 118/63 118/63 Pulse Oximetry 95 97 Oxygen Flow Rate 0 Oxygen Delivery Method Room Air,CPAP Oxygen Flow Rate 0 Narrative Exam Narrative: Lying comfortably in bed during our interview today. No acute distress. AOx3. Grossly normal alignment of the RLE, mild-moderate swelling throughout the right lower extremity. 5/5 strength with DF, PF, EHL, knee flexion and extension bilaterally. Gross sensation intact throughout bilateral lower extremities. Calves soft and non-tender bilaterally. SCDs are on and functioning. Brisk capillary refill, pulses intact. Post-surgical Lizeth dressing clean, dry and intact over the right posterior hip without drainage. 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) GIB (gastrointestinal bleeding) (10/2022) Chronic anemia Aortic stenosis Atrial fibrillation/flutter (08/2023) Back pain Arthritis Spinal stenosis Eczema Impaired fasting glucose PVC (premature ventricular contraction) Long-term use of hydroxychloroquine Obesity Anxiety Panic attacks Depression Dermatitis Wart of face Osteoarthritis Rheumatoid arthritis Nocturia Postmenopausal GERD (gastroesophageal reflux disease) Hypertension Sleep apnea Motion sickness Impaired vision Head injury (~07/2017) Infection of total right knee replacement Surgical History History of hung hole surgery (2016) History of incision and drainage History of laminectomy (2012) History of total knee arthroplasty Social History household members: spouse Smoking Status: Never smoker alcohol intake: never Assessment & Plan Post-op Postoperative Procedures: Procedures Operation Date: 09/24/24 10:45 Actual Procedure Side Surgeon p Total Hip Arthroplasty Right Fernanda Salazar MD Postoperative plan narrative: 1) Plan to discharge to home tomorrow with pending PT evaluation and stabilization of vitals and H&H. Repeat H&H tomorrow AM. Consulted w/ Dr. Salazar, recomending one more unit of PRBC today to improve H&H and avoid post-op hypotension prior to d/c. 2) Continue multimodal pain management with ice to the hip for additional pain control. 3) Will resume Xarelto today for DVT prophylaxis. SCDs to be on and functioning while patient is in bed. 4) Continue to work w/ physical therapy to work on range of motion and mobility. Plan to remove her Gore catheter today after PT. Patient is interested in getting set up with home health PT for the 1st few PT sessions postoperatively. 5) Keep dressing intact, clean, dry until 2 week postop appointment. No soaking the incision site in pools or tubs. No topical ointments or creams to the incision site. 6) Follow up at [facility] in 2 weeks for a postop appointment and wound check. All patient's questions were answered, she demonstrates understanding and is in agreement with the plan. Call our office if any questions or concerns arise.
--- NOTE | 2024-09-26 12:07 | P.DS_ITS ---
History of Present Illness History of Present Illness Chief complaint: INPT Discharge Providers Provider Date of admission: 09/24/24 08:23 Primary care physician: Sheila Ross MD Consults: 08/20/24 13:43 Consult to Anesthesiology Routine Comment: Consulting Provider: Antoine Rios Reason for consultation: surgeon request - multiple medical 09/24/24 06:00 Consult to Anesthesiology Routine Comment: Consulting Provider: Anesthesiologist Reason for consultation: Regional block for post operative pain control 09/24/24 17:53 Consult to Discharge Planning Routine Comment: Consult to Occupational Therapy Evaluate & Treat Comment: Physician Instructions: Evaluate and treat Consult to Physical Therapy Evaluate & Treat Comment: Physician Instructions: post op KIMBERLY protocol Discharge provider: Spring Madden PA-C Exam Vital Signs (past 8 hours): - 09/26/24 08:00 09/26/24 09:16 09/26/24 12:00 Temperature 97.9 F 98.1 F Pulse Rate 118 H 115 H 107 H Respiratory Rate 20 20 Blood Pressure 118/63 118/63 118/65 Pulse Oximetry 97 95 Oxygen Flow Rate 0 0 Oxygen Delivery Method Room Air,CPAP Oxygen Flow Rate 0 Objective Labs 09/26/24 04:52 09/24/24 16:30 Labs: Laboratory Results - last 24 hr 09/26/24 04:52 WBC 13.7 H RBC 2.54 L Hgb 7.4 L Hct 22.5 L MCV 88.8 MCH 29.3 MCHC 33.1 RDW 16.1 H Plt Count 192 Neut % (Auto) 80.0 H Lymph % (Auto) 8.1 L [place] % (Auto) 10.6 Eos % (Auto) 1.1 L Baso % (Auto) 0.2 Neut # (Auto) 54955 H Lymph # (Auto) 1100 [place] # (Auto) 1500 H Eos # (Auto) 100 Baso # (Auto) 0 PFSH Medical History Subdural hematoma (2017) Osteonecrosis BMI 33.0-33.9,adult (08/2024) Normal cardiac ejection fraction Normal cardiac ejection fraction (10/2023) 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) GIB (gastrointestinal bleeding) (10/2022) Chronic anemia Aortic stenosis Atrial fibrillation/flutter (08/2023) Back pain Arthritis Spinal stenosis Eczema Impaired fasting glucose PVC (premature ventricular contraction) Long-term use of hydroxychloroquine Obesity Anxiety Panic attacks Depression Dermatitis Wart of face Osteoarthritis Rheumatoid arthritis Nocturia Postmenopausal GERD (gastroesophageal reflux disease) Hypertension Sleep apnea Motion sickness Impaired vision Head injury (~07/2017) Infection of total right knee replacement Surgical History History of hung hole surgery (2016) History of incision and drainage History of laminectomy (2012) History of total knee arthroplasty Social History household members: spouse Smoking Status: Never smoker alcohol intake: never Discharge Plan Discharge orders & Medications Prescriptions: No Action multivitamin [Multiple Vitamins] 1 EACH tablet 1 tab PO QDAY Qty: 0 calcium carbonate 600 MG tablet 600 mg PO BID Qty: 0 cholecalciferol (vitamin D3) [Vitamin D3] 2,000 unit Tablet 2,000 unit PO DAILY triamcinolone acetonide 0.5 % cream 1 applic Topical TID sulfasalazine 500 mg Tablet 1,000 mg PO BID hydroxychloroquine 200 mg Tablet 400 mg PO DAILY Xarelto 20 mg Tablet 20 mg PO QPM Rx Instructions: must administer with evening meal diltiazem HCl 120 mg Tablet 120 mg PO BID digoxin 125 mcg (0.125 mg) Tablet 125 mcg PO DAILY metoprolol tartrate 25 mg Tablet 25 mg PO BID pramipexole 0.5 mg tablet 0.5 mg PO QPM Patient Comments: take 1/2 to 1 tablet by mouth daily 2 to 3 hours before BEDTIME imipramine HCl 50 mg tablet 100 mg PO QPM Patient Comments: take 2 to 3 tablets by mouth every morning ascorbic acid (vitamin C) [Vitamin C] 500 mg tablet 250 mg PO DAILY docusate sodium 100 mg capsule 100 mg PO DAILY hydrocodone-acetaminophen 5-325 mg Tablet 1 tab PO PRN PRN (Reason: Pain, Moderate) leflunomide 20 mg Tablet 20 mg PO DAILY pantoprazole 40 mg Tablet,Delayed Release (Dr/Ec) 40 mg PO DAILY ferrous sulfate 325 mg (65 mg iron) Tablet 325 mg PO DAILY sertraline 25 mg Tablet 25 mg PO DAILY gabapentin 100 mg capsule 100 mg PO BEDTIME Patient Comments: take 1-3 capsules by mouth at bedtime as directed rosuvastatin 10 mg Tablet 10 mg PO QPM Follow up/Referrals: Sheila Ross MD [Primary Care Provider] - Discharge Data Primary Care Provider: Sheila Ross
--- NOTE | 2024-09-26 12:31 | CM.DPNOTE ---
[facility] Cont Met w/patient, Dr Salazar present for this brief visit. Patient is adamant about returning home; spouse completed cg training today w/PT. Discussed HH and patient agreeable, requests referral to [facility]. Emailed completed F2F and face sheet to Britney at [facility]. 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 CM team following closely for coordination. REED
[2024-09-26] MEDS: CALCIUM CARBONATE 500 MG TAB 1000 MG PO ×2 (14:06→21:34)
--- NOTE | 2024-09-26 14:47 | PT-IP ANOTE ---
pt on hold for this afternoon. pt is about to get blood transfusion
[2024-09-26] MEDS: GABAPENTIN 100 MG CAPSULE PO (21:35)
[2024-09-26] MEDS: PRAMIPEXOLE 0.25 MG TABLET 0.5 MG PO (21:35)
[2024-09-26] MEDS: ATORVASTATIN 20 MG TABLET PO (21:36)
[2024-09-27 00:21] VITALS: BP 129/75; PULSE 114; RESP 19; TEMP 36.3; O2SAT 100
[2024-09-27] MEDS: OXYCODONE IR 5 MG TABLET PO ×3 (00:50→10:37)
[2024-09-27 05:36] VITALS: BP 150/77; PULSE 116; RESP 20; TEMP 36; O2SAT 100
[2024-09-27 08:21] VITALS: BP 160/82; PULSE 118; RESP 20; TEMP 36.4; O2SAT 96
[2024-09-27] MEDS: CALCIUM CARBONATE 500 MG TAB 1000 MG PO (08:42)
[2024-09-27] MEDS: ASCORBIC ACID 500 MG TABLET 250 MG PO (08:43)
[2024-09-27] MEDS: SERTRALINE 50 MG TABLET 25 MG PO (08:43)
[2024-09-27 08:44] VITALS: BP 160/82; PULSE 118
[2024-09-27] MEDS: HYDROXYCHLOROQUINE 200 MG TABLET 400 MG PO (08:44)
[2024-09-27] MEDS: DIGOXIN 0.125 MG TABLET PO (08:44)
[2024-09-27] MEDS: cephALEXin 250 MG CAPSULE 500 MG PO (08:44)
[2024-09-27] MEDS: MULTIVITAMIN 1 TABLET 1 TAB PO (08:45)
[2024-09-27] MEDS: METOPROLOL IR 25 MG TABLET PO (08:45)
[2024-09-27] MEDS: CHOLECALCIFEROL (VITAMIN D3) 1,000 UNIT TABLET 2000 UNIT PO (08:45)
[2024-09-27] MEDS: DOCUSATE 100 MG CAPSULE PO (08:45)
[2024-09-27] MEDS: PANTOPRAZOLE DR 40 MG TABLET PO (08:45)
[2024-09-27] MEDS: FERROUS SULFATE 325 MG TABLET PO (08:45)
[2024-09-27 09:13] LABS: Add Manual Diff / Slide Review NO; Basophils Absolute Auto 100 /uL (0-100); Basophils Percent Auto 0.7 % (0-2); Eosinophils Absolute Auto 900 /uL (0-450); Eosinophils Percent Auto 7.8 % (2-4); Hematocrit 25.8 % (36-46); Hemoglobin 8.6 g/dL (12.0-16.0); Lymphocytes Absolute Auto 1300 /uL (1100-4500); Lymphocytes Percent Auto 11.8 % (25-40); Mean Corpuscular HGB Conc 33.2 % (30-36); Mean Corpuscular Hemoglobin 29.3 PG (26-34); Mean Corpuscular Volume 88.2 fL (80-100); Monocytes Absolute Auto 1100 /uL (0-900); Neutrophils Absolute Auto 7900 /uL (1500-7000); Neutrophils Percent Auto 69.7 % (50-75); Platelet Count 192 X10^3/uL (150-400); Red Blood Cell Count 2.92 X10^6/uL (4.0-5.2); Red Cell Distribution Width 15.9 % (11.6-14.8); White Blood Cell Count 11.4 X10^3/uL (4.5-11.0)
--- NOTE | 2024-09-27 09:45 | PM.PNPO.1 ---
Subjective Subjective Interval history: Patient is status post a right total hip arthroplasty. Doing much better today. Patient had issues with hypotension and a low H&H. Got a unit of blood yesterday and her hematocrit is much improved. Doing well with pain control. And has been up with physical therapy. Exam Vital Signs (past 8 hours): - 09/27/24 05:36 09/27/24 08:21 09/27/24 08:44 Temperature 96.8 F L 97.6 F Pulse Rate 116 H 118 H 118 H Respiratory Rate 20 20 Blood Pressure 150/77 H 160/82 H 160/82 H Pulse Oximetry 100 96 Oxygen Flow Rate 0 0 Oxygen Delivery Method Room Air,CPAP Oxygen Flow Rate 0 Narrative Exam Narrative: Dressing is clean and dry. Positive dorsiflexion and plantar flexion of the toes and ankles. Nontender to palpation to the posterior aspect of the calf. Palpable pedal pulses. Objective Labs 09/27/24 09:00 09/24/24 16:30 Labs: Laboratory Results - last 24 hr 09/24/24 09/27/24 16:30 09:00 WBC 11.4 H RBC 2.92 L Hgb 8.6 L Hct 25.8 L MCV 88.2 MCH 29.3 MCHC 33.2 RDW 15.9 H Plt Count 192 Neut % (Auto) 69.7 Lymph % (Auto) 11.8 L [place] % (Auto) 10.0 Eos % (Auto) 7.8 H Baso % (Auto) 0.7 Neut # (Auto) 7900 H Lymph # (Auto) 1300 [place] # (Auto) 1100 H Eos # (Auto) 900 H Baso # (Auto) 100 Blood Type A Positive Antibody Screen Negative Crossmatch See Detail [facility] Medical History Subdural hematoma (2017) Osteonecrosis BMI 33.0-33.9,adult (08/2024) Normal cardiac ejection fraction Normal cardiac ejection fraction (10/2023) 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) GIB (gastrointestinal bleeding) (10/2022) Chronic anemia Aortic stenosis Atrial fibrillation/flutter (08/2023) Back pain Arthritis Spinal stenosis Eczema Impaired fasting glucose PVC (premature ventricular contraction) Long-term use of hydroxychloroquine Obesity Anxiety Panic attacks Depression Dermatitis Wart of face Osteoarthritis Rheumatoid arthritis Nocturia Postmenopausal GERD (gastroesophageal reflux disease) Hypertension Sleep apnea Motion sickness Impaired vision Head injury (~07/2017) Infection of total right knee replacement Surgical History History of hung hole surgery (2016) History of incision and drainage History of laminectomy (2012) History of total knee arthroplasty Social History household members: spouse Smoking Status: Never smoker alcohol intake: never Assessment & Plan Post-op Postoperative Procedures: Procedures Operation Date: 09/24/24 10:45 Actual Procedure Side Surgeon p Total Hip Arthroplasty Right Fernanda Salazar MD Postoperative status: doing well and anemia Postoperative status narrative: Patient doing well after right total hip arthroplasty will be discharged home today. Postoperative plan: discharge (Discharge home today)
--- NOTE | 2024-09-27 09:47 | P.DS_ITS ---
History of Present Illness History of Present Illness Chief complaint: INPT Discharge Providers Provider Date of admission: 09/24/24 08:23 Discharge Date: 09/27/24 Primary care physician: Sheila Ross MD Consults: 08/20/24 13:43 Consult to Anesthesiology Routine Comment: Consulting Provider: Antoine Rios Reason for consultation: surgeon request - multiple medical 09/24/24 06:00 Consult to Anesthesiology Routine Comment: Consulting Provider: Anesthesiologist Reason for consultation: Regional block for post operative pain control 09/24/24 17:53 Consult to Discharge Planning Routine Comment: Consult to Occupational Therapy Evaluate & Treat Comment: Physician Instructions: Evaluate and treat Consult to Physical Therapy Evaluate & Treat Comment: Physician Instructions: post op KIMBERLY protocol 09/26/24 12:27 Consult to Home Health Routine Comment: Reason For Exam: Home health upon discharge Discharge provider: Marcos Morales MD Exam Vital Signs (past 8 hours): - 09/27/24 05:36 09/27/24 08:21 09/27/24 08:44 Temperature 96.8 F L 97.6 F Pulse Rate 116 H 118 H 118 H Respiratory Rate 20 20 Blood Pressure 150/77 H 160/82 H 160/82 H Pulse Oximetry 100 96 Oxygen Flow Rate 0 0 Oxygen Delivery Method Room Air,CPAP Oxygen Flow Rate 0 Objective Labs 09/27/24 09:00 09/24/24 16:30 Labs: Laboratory Results - last 24 hr 09/24/24 09/27/24 16:30 09:00 WBC 11.4 H RBC 2.92 L Hgb 8.6 L Hct 25.8 L MCV 88.2 MCH 29.3 MCHC 33.2 RDW 15.9 H Plt Count 192 Neut % (Auto) 69.7 Lymph % (Auto) 11.8 L [place] % (Auto) 10.0 Eos % (Auto) 7.8 H Baso % (Auto) 0.7 Neut # (Auto) 7900 H Lymph # (Auto) 1300 [place] # (Auto) 1100 H Eos # (Auto) 900 H Baso # (Auto) 100 Blood Type A Positive Antibody Screen Negative Crossmatch See Detail [facility] Medical History Subdural hematoma (2017) Osteonecrosis BMI 33.0-33.9,adult (08/2024) Normal cardiac ejection fraction Normal cardiac ejection fraction (10/2023) 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) GIB (gastrointestinal bleeding) (10/2022) Chronic anemia Aortic stenosis Atrial fibrillation/flutter (08/2023) Back pain Arthritis Spinal stenosis Eczema Impaired fasting glucose PVC (premature ventricular contraction) Long-term use of hydroxychloroquine Obesity Anxiety Panic attacks Depression Dermatitis Wart of face Osteoarthritis Rheumatoid arthritis Nocturia Postmenopausal GERD (gastroesophageal reflux disease) Hypertension Sleep apnea Motion sickness Impaired vision Head injury (~07/2017) Infection of total right knee replacement Surgical History History of hung hole surgery (2016) History of incision and drainage History of laminectomy (2012) History of total knee arthroplasty Social History household members: spouse Smoking Status: Never smoker alcohol intake: never Discharge Plan Discharge Plan Patient Disposition: Home Discharge orders & Medications Prescriptions: New oxycodone-acetaminophen [Percocet] 5-325 mg tablet 2 tab PO Q4-6H PRN (Reason: pain) Qty: 60 0RF Continued multivitamin [Multiple Vitamins] 1 EACH tablet 1 tab PO QDAY Qty: 0 calcium carbonate 600 MG tablet 600 mg PO BID Qty: 0 cholecalciferol (vitamin D3) [Vitamin D3] 2,000 unit Tablet 2,000 unit PO DAILY triamcinolone acetonide 0.5 % cream 1 applic Topical TID sulfasalazine 500 mg Tablet 1,000 mg PO BID hydroxychloroquine 200 mg Tablet 400 mg PO DAILY Xarelto 20 mg Tablet 20 mg PO QPM Rx Instructions: must administer with evening meal diltiazem HCl 120 mg Tablet 120 mg PO BID digoxin 125 mcg (0.125 mg) Tablet 125 mcg PO DAILY metoprolol tartrate 25 mg Tablet 25 mg PO BID pramipexole 0.5 mg tablet 0.5 mg PO QPM Patient Comments: take 1/2 to 1 tablet by mouth daily 2 to 3 hours before BEDTIME imipramine HCl 50 mg tablet 100 mg PO QPM Patient Comments: take 2 to 3 tablets by mouth every morning ascorbic acid (vitamin C) [Vitamin C] 500 mg tablet 250 mg PO DAILY docusate sodium 100 mg capsule 100 mg PO DAILY hydrocodone-acetaminophen 5-325 mg Tablet 1 tab PO PRN PRN (Reason: Pain, Moderate) leflunomide 20 mg Tablet 20 mg PO DAILY pantoprazole 40 mg Tablet,Delayed Release (Dr/Ec) 40 mg PO DAILY ferrous sulfate 325 mg (65 mg iron) Tablet 325 mg PO DAILY sertraline 25 mg Tablet 25 mg PO DAILY gabapentin 100 mg capsule 100 mg PO BEDTIME Patient Comments: take 1-3 capsules by mouth at bedtime as directed rosuvastatin 10 mg Tablet 10 mg PO QPM Follow up/Referrals: Sheila Ross MD [Primary Care Provider] - Fernanda Salazar MD [Family Provider] - (Follow up at [facility] as scheduled in 2 weeks. ) Diet/Activity/Treatments Diet: Diet as Tolerated Cold/Heat Therapy: Ice to the hip for additional pain control. Skin/Wound/Dressing Care Report to your healthcare provider any signs of infection, such as:: chills, fever, night sweats, unusual drainage and unusual redness Dressing: Keep dressing intact, clean and dry until 2 week post-op appointment. No soaking the incision site in pools or tubs. No topical ointments or creams to the incision site. Visit Report/Discharge Packet Instructions: DI for Hip Replacement, DI for Prescription Opioid Use Stand Alone Forms: Patient Portal/API, Stroke Signs & Symptoms Discharge Data Primary Care Provider: Sheila Ross
--- NOTE | 2024-09-27 10:45 | PT.IPTN ---
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) Surgery Performed Operation Date: 09/24/24 10:45 Actual Procedures p Total Hip Arthroplasty(Right) - Fernanda Salazar MD Physical Therapy Treatment Note M2 PT-IP Current Condition Start: 09/25/24 13:11 Freq: NEEDED Status: Active Protocol: Document 09/25/24 10:30 AB (Rec: 09/25/24 13:30 AB [id number]) Physical Therapy Current Condition Current Condition Evaluation Date 09/25/24 Treatment Diagnosis s/p R KIMBERLY posterior; difficutly in walking Onset Date 09/24/24 M3 PT-IP Subjective Start: 09/25/24 13:11 Freq: NEEDED Status: Active Protocol: Document 09/27/24 10:35 KJ (Rec: 09/27/24 10:45 KJ [id number]) Subjective Physical Therapy Visit Type Type Treatment Note Visit Start Time 09:58 Visit Stop Time 10:31 Physical Therapy Visit Comments Patient Comments Looking forward to going home today. Feels she has necessary equipment available. Does not feel need to practice stairs as has acquires a stair assist device. At time of visit pt reports feeling sleepy, denies need for pain medication. Patient Goals To go home, to be able to resume infusion rx for RA Therapy Pain Assessment Pain When Pain Assessed At Rest Pain Present Pain Present Denied Pain M4 PT-IP Mobility and Gait Start: 09/25/24 13:11 Freq: NEEDED Status: Active Protocol: Document 09/27/24 10:35 KJ (Rec: 09/27/24 10:45 KJ [id number]) PT-Bed Mobility Assessment Rolling Type of Rolling Roll to Left Level of Assist Minimal Assistance Sit to Supine Sit to Supine Moderate Assistance PT-Transfer Assessment Sit to and From Stand Sit to and from Stand Moderate Assistance Equipment Transfer Assistive Device Gait Belt Gait Assessment Gait Gait Assistance Required: Contact Guard Assist Distance (Feet) 10 Able to Maintain Weight Bearing Status Yes During Gait Assistive Devices Assistive Device Gait Belt,Front Wheeled Walker Gait Deviations General Gait Pattern Decreased Stride Length,Flexed Trunk Factors Limiting Gait Function Factors Limiting Gait Function Decreased Activity Tolerance Comments Gait Comments Guarded but steady gait. PT-Balance Assessment Sitting Balance and Reactions Static Sitting Balance Ability Normal Dynamic Sitting Balance Ability Good Standing Balance and Reactions Static Standing Balance Ability Good Dynamic Standing Balance Ability Fair M5 PT-IP Objective Assessments Start: 09/25/24 13:11 Freq: NEEDED Status: Active Protocol: Document 09/27/24 10:35 KJ (Rec: 09/27/24 10:45 KJ [id number]) Orientation Orientation/Cognition Level of Alertness Alert Orientation Name,Age,Place,Situation Language Function Ability No Deficits Noted Safety Awareness Understands Safety Issues Memory Description No Deficits Noted Comments Reviewed post hip precautions. Reviewed HEP. Discussed safety at home. Gross Range of Motion Lower Extremity ROM Impairments bilat knee ext limited R>L Strength Lower Extremity Strength Knee knee ext 5/5 within available ROM (lacks full ext bilat) Ankle bilat dorsiflex WFL M6 PT-IP Treatment Start: 09/25/24 13:11 Freq: NEEDED Status: Active Protocol: Document 09/27/24 10:35 KJ (Rec: 09/27/24 10:45 KJ [id number]) Physical Therapy Treatment Exercises Exercises Ankle Pumps,Gluteal Sets,Quad Sets Education Education Provided Precautions,Weight Bearing Status,Safety M7 PT-IP Assessment and Plan Start: 09/25/24 13:11 Freq: NEEDED Status: Active Protocol: Document 09/27/24 10:35 KJ (Rec: 09/27/24 10:45 KJ [id number]) PT Summary Assessment and Plan Potential Rehabilitation Potential Excellent Status of Condition at Evaluation Evolving Summary Impairments ROM,Transfers,Activity Tolerance Assessment Summary Still requires mod assist for sit to stand from recliner. At home she uses a recliner with an electric lift to stand, and in past months she has been using a wheelchair for mobility due to the condition of her hip, thus, continuing skilled PT services will be of benefit for her to be able to resume more mobility without the wheelchair Goals Bed Mobility Goal Contact Guard Assistance Transfer Goal Minimal Assistance Gait Goal Contact Guard Assistance Gait Distance 50 Days to Meet Goals 2 Frequency of Treatment Frequency Of Treatment Twice a Day Treatment Plan Physical Therapy Treatment Plan Bed Mobility Training,Transfer Training,Gait Training, Therapeutic Exercise,Post Op Education Other Recommendations and Next Treatment If she does not discharge Focus today, will continue bid for mobility Recommendations To Nursing Amount of Assist Needed 2 Person Assist Discharge Recommendations PT Discharge Recommendations SNF Rehab
--- NOTE | 2024-09-27 11:43 | CM.DPNOTE ---
DCP note PACKAGING ASSEMBLER reviewed EMR. Per chart, plan is to dc home with Alpha today. Per chargeback specialist in morning rounds, H&H stable. PACKAGING ASSEMBLER spoke with britney from [facility], got referral, reviewing now, no current red flags why they could not accept pt. PACKAGING ASSEMBLER emailed f2f to Britney. PACKAGING ASSEMBLER met with pt in room. Gave copy of brochure. confirmed dcp. Pt confirmed preference is to dc home today with spouse and Alpha . Spouse on way to transport. deny other CM needs or questions. P: home today with spouse and Alpha . no further CM needs identified at this time. CM team will continue to follow as needed. AMBIKA Miranda
--- NOTE | 2024-09-27 12:11 | PC.NURSE ---
Day shift: Discharge instructions gone over including JENNIFER dressing care and medication. Hard script for pain medication given to patient. Home medications from pharmacy returned to patient prior to discharge. PIV and tele removed. All belongings with patient. ILYA Wright escorted patient via wheelchair to exit where her spouse plans to drive her home.
--- NOTE | 2024-09-30 14:27 | P.PN_ITS ---
Subjective Subjective Interval history: I was called by the [facility] emergency department this afternoon regarding Alivia. She is at their facility with a dislocation of her prosthetic hip which they were unable to reduce closed. Following reduction attempt the femoral stem has become more proud, presumably related to traction on the leg during the reduction attempt. Per the emergency department physician, the patient has also had persistent tachycardia in the 120 range. She has a history of atrial fibrillation, but per report is not currently in atrial fibrillation. Given her vital sign derangements I have requested that they reach out to the medical team at [facility] to initiate a transfer to the medical service for evaluation of her cardiac status and determination of whether there are any medical parameters which will need to be corrected prior to a return to the OR. I have also placed orders for a full set of labs as well as a CT scan of the pelvis and right hip. An augment was used on the acetabular side and a dual mobility head was placed. A CT scan will allow for evaluation of the position of the augment as well as whether an intraprosthetic dislocation occured between the femoral head and the DM liner. The timing and specific plan for any further surgery remain to be determined at this point in time. I have no current plans to attempt a closed reduction given the position of the femoral stem. I will closely monitor the status of her sciatic nerve while we determine further management plans. 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) GIB (gastrointestinal bleeding) (10/2022) Chronic anemia Aortic stenosis Atrial fibrillation/flutter (08/2023) Back pain Arthritis Spinal stenosis Eczema Impaired fasting glucose PVC (premature ventricular contraction) Long-term use of hydroxychloroquine Obesity Anxiety Panic attacks Depression Dermatitis Wart of face Osteoarthritis Rheumatoid arthritis Nocturia Postmenopausal GERD (gastroesophageal reflux disease) Hypertension Sleep apnea Motion sickness Impaired vision Head injury (~07/2017) Infection of total right knee replacement Surgical History History of hung hole surgery (2017) History of incision and drainage History of laminectomy (2013) History of total knee arthroplasty Social History household members: spouse Smoking Status: Never smoker alcohol intake: never Assessment & Plan Time-Based Coding :: [TOTAL MINUTES] spent with patient and on the chart (including review of chart, obtaining history, exam, reviewing outside data, placing orders, documenting exam and treatment plan, and counseling patient) on [DATE].
== END 2024-09-27 12:13 | disposition home health service (06) | DRG 469 ==
LOC: AC 14:52 → ICU 17:19 → AC 09-25 15:38
PROVIDERS: Hospitalist; Physician Assistant Surgical; Admitting Provider Orthopaedic Surgery; Family Provider Orthopaedic Surgery; PCP Internal Medicine; Referring Provider Orthopaedic Surgery; Visit Provider Orthopaedic Surgery
PROC: 0SR90JZ Replacement of Right Hip Joint with Synthetic Substitute, Open Approach (ICD-10-PCS; CPT 27130; principal; 2024-09-24 10:45)
DX: M87.051 Idiopathic aseptic necrosis of right femur (principal); T81.19XA Other postprocedural shock, initial encounter; S73.001A Unspecified subluxation of right hip, initial encounter; D62 Acute posthemorrhagic anemia; D84.821 Immunodeficiency due to drugs; M05.9 Rheumatoid arthritis with rheumatoid factor, unspecified; M16.7 Other unilateral secondary osteoarthritis of hip; E66.01 Morbid (severe) obesity due to excess calories; M81.0 Age-related osteoporosis without current pathological fracture; I35.0 Nonrheumatic aortic (valve) stenosis; G47.33 Obstructive sleep apnea (adult) (pediatric); I10 Essential (primary) hypertension; K21.9 Gastro-esophageal reflux disease without esophagitis; F32.A Depression, unspecified; X58.XXXA Exposure to other specified factors, initial encounter; Z79.01 Long term (current) use of anticoagulants; Z68.36 Body mass index [BMI] 36.0-36.9, adult; Z79.52 Long term (current) use of systemic steroids; Z79.69 Long term (current) use of other immunomodulators and immunosuppressants
CPT/HCPCS: 36415; 36430; 71045; 72170; 73502; 80048; 82962; 85014; 85018; 85025; 85610; 85730; 86850; 86900; 86901; 87070; 87075; 87205; 87797; 97116; 97163; 97166; 97530; C1776; P9016; C1713; C9290; J0171; J0690; J1171; J2250; J2704; J2919; J3010

== ENCOUNTER 2024-09-30 17:34 | Inpatient (IN) | payer OTHER, SELFPAY ==
[2024-09-24 08:27] VITALS: BMI 36.5
[2024-09-30] VITALS (14 sets, daily range): BP systolic 100–118; BP diastolic 50–72; PULSE 77–117; RESP 7–35; TEMP 36.4–36.8; O2SAT 84–100; BMI 34.7
--- NOTE | 2024-09-30 18:36 | PM.HP.1 ---
History of Present Illness History of Present Illness Date Patient Seen: 09/30/24 Time Patient Seen: 18:15 Chief complaint: Right Hip Dislocation Narrative: 73-year-old woman under the primary care of Dr. Maegan Ross underwent elective right total hip replacement on 09/24/2024 at this hospital, discharge home on 09/07/2011/26/2023, and unfortunately fell and dislocated her hip. Attempts to reduce the hip at [facility] Emergency Department resulted in displacement of the prosthesis from the femoral shaft. She is admitted for further management and evaluation. She has a history of atrial flutter with variable 2-1 block, and during her recent hospitalization remained in tachycardic rhythm with heart rates in the 120s. She was noted to be in a tachycardic rhythm at [facility]. She was asymptomatic. She has not been taking Xarelto since surgery. She is followed by Dr. Khoi Tubbs of Cardiology. She had a normal dobutamine stress echo on 07/02/2024, at which time she was in atrial flutter with two-to-one AV block, and incidentally noted to have moderate aortic valve stenosis. 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) Hypertension Impaired fasting glucose Impaired vision Infection of total right knee replacement Long-term use of hydroxychloroquine Motion sickness Nocturia Normal cardiac ejection fraction (10/2023) Normal cardiac ejection fraction Obesity Osteoarthritis Osteonecrosis Panic attacks Postmenopausal PVC (premature ventricular contraction) Rheumatoid arthritis Sleep apnea Spinal stenosis Subdural hematoma (2016) Wart of face Surgical History History of hung hole surgery (2016) History of incision and drainage History of laminectomy (2012) History of total knee arthroplasty Social History household members: spouse Smoking Status: Never smoker alcohol intake: never Meds Home Medications and Allergies Home Medications Medication Instructions Recorded Confirmed Type calcium carbonate 600 mg PO BID ##0 12/30/17 08/20/24 History multivitamin (Multiple Vitamins 1 tab PO QDAY ##0 12/30/17 08/20/24 History tablet) cholecalciferol (vitamin D3) 50 2,000 unit PO DAILY 09/02/18 08/20/24 History mcg (2,000 unit) tablet (Vitamin D3) triamcinolone acetonide 0.5 % 1 applic topical TID rash 09/02/18 08/20/24 History topical cream hydroxychloroquine 200 mg tablet 400 mg PO DAILY RA 12/17/18 08/20/24 History sulfasalazine 500 mg tablet 1,000 mg PO BID RA 12/17/18 08/20/24 History ascorbic acid (vitamin C) 500 mg 250 mg PO DAILY 08/20/24 08/20/24 History tablet (Vitamin C) digoxin 125 mcg (0.125 mg) tablet 125 mcg PO DAILY 08/20/24 08/20/24 History diltiazem HCl 120 mg tablet 120 mg PO BID 08/20/24 08/20/24 History docusate sodium 100 mg capsule 100 mg PO DAILY 08/20/24 08/20/24 History imipramine HCl 50 mg tablet 100 mg PO QPM 08/20/24 08/20/24 History metoprolol tartrate 25 mg tablet 25 mg PO BID 08/20/24 08/20/24 History pramipexole 0.5 mg tablet 0.5 mg PO QPM 08/20/24 08/20/24 History rivaroxaban 20 mg tablet (Xarelto) 20 mg PO QPM 08/20/24 08/20/24 History ferrous sulfate 325 mg (65 mg 325 mg PO DAILY 08/24/24 08/24/24 History iron) tablet gabapentin 100 mg capsule 100 mg PO BEDTIME 08/24/24 08/24/24 History hydrocodone 5 mg-acetaminophen 325 1 tab PO PRN PRN Pain, Moderate 08/24/24 08/24/24 History mg tablet leflunomide 20 mg tablet 20 mg PO DAILY 08/24/24 08/24/24 History pantoprazole 40 mg tablet,delayed 40 mg PO DAILY 08/24/24 08/24/24 History release rosuvastatin 10 mg tablet 10 mg PO QPM 08/24/24 08/24/24 History sertraline 25 mg tablet 25 mg PO DAILY 08/24/24 08/24/24 History oxycodone-acetaminophen 5 mg-325 2 tab PO Q4-6H PRN pain #60 tabs 09/27/24 Rx mg tablet (Percocet) Allergies Allergy/AdvReac Type Severity Reaction Status Date / Time chlorhexidine Allergy Severe Rash - pt Verified 09/24/24 08:54 states with halfway use. lorazepam [LORAZEPAM] Allergy Severe ANXIETY, Verified 09/24/24 08:54 hyperactivity, combative azathioprine AdvReac Severe N/V Verified 09/24/24 08:54 Benzodiazepines AdvReac Severe TEARING Verified 09/24/24 08:54 [BENZODIAZEPINES] CLOTHES OFF, NO MEMORY X2 DAYS, combative. lisinopril [LISINOPRIL] AdvReac Intermediate COUGH Verified 09/24/24 08:54 clindamycin AdvReac Nausea Verified 09/24/24 08:54 doxycycline AdvReac Nasal Verified 09/24/24 08:54 Discharge nickel AdvReac from Verified 09/24/24 08:54 earrings Review of Systems Review of Systems ROS: Yes All systems reviewed with the patient and are negative except as otherwise documented Exam Vital Signs (past 8 hours): - 09/30/24 18:31 Temperature 98.3 F Pulse Rate 85 Respiratory Rate 17 Blood Pressure 118/67 Pulse Oximetry 100 Oxygen Flow Rate 2 Oxygen Flow Rate 2 Narrative Exam Narrative: GENERAL: This is a well-nourished, well-developed patient, appears uncomfortable. HEAD: Atraumatic. Normocephalic. No temporal or scalp tenderness. EYES: Pupils equal round and reactive. Extraocular motions intact. No scleral icterus. No injection or drainage. ENT: Mucous membranes pink and moist. NECK: Trachea midline. No JVD, bruits or lymphadenopathy. Supple, nontender, no meningeal signs. CARDIOVASCULAR: Regular rate and rhythm without murmurs, gallops, or rubs. RESPIRATORY: Clear to auscultation. GASTROINTESTINAL: Abdomen soft, non-tender, nondistended. EXTREMITIES: No clubbing, cyanosis, or edema. Right leg shortened. Right hip dressing in place is dry and intact. NEUROLOGIC: Alert, oriented, speech fluent, full upper and lower motor strength, no focal deficits evident. DERMATOLOGIC: No rashes or skin lesions. Objective Imaging Right hip xray:: Radiologist's impression: Reviewed x-ray from [facility] demonstrating right hip dislocation with femoral shaft prosthesis withdrawn approximately 1 cm. Assessment & Plan Assessment & Plan narrative: 1. Right hip dislocation. Management per Orthopedics. Consultation placed. Case reviewed with Dr. Eliazar Bull. 2. Atrial flutter with 2-1 block. Appears adequately rate controlled. Continue digoxin, metoprolol and diltiazem. Monitor on telemetry. She tolerated recent surgery without incident. She had recent normal cardiac stress testing. Hold anticoagulation pending upcoming surgery. 3. Rheumatoid arthritis. Continue routine medication. 4. GERD. Continue pantoprazole. 5. Sleep apnea. 6. Code status: Full code. And affirmed with the patient on admission Quality MIPS - Admit I confirm the patient?s Advance Care Plan is present, Code status is documented, Surrogate decision maker is in patient?s record [If Yes, STOP here]: Yes [facility] - Meds 'Current medications' to include all prescriptions, [id number] products, herbals, cannabis/cannabidiol products, and vitamin/mineral/dietary (nutritional) supplements. I have utilized all available resources to obtain, update, or review the patient?s current medications. [If Yes, STOP here]: Yes [facility] Charge Codes Initial inpatient/observation care: [id number]
--- NOTE | 2024-09-30 18:45 | PC.NURSE ---
Admit Note Patient arrived to room 231 at approx 1810 via ambulance transport. Pt alert and oriented x3. Pt received 1.5 mg of Dilaudid prior to arrival, reporting pain 8/10 to right hip, decreased to 2-3/10 once transferred and at rest. On 2L oxymask, desats to mid-80s when asleep on RA, reports wears CPAP normally and that is bringing it this evening. Aflutter in the 80s. Denies chest pain, denies shortness of breath. Purewick in place. Dressing to right hip in place and D/I, old drainage visible. CMS intact to BLEs. Oriented to room and to call light/bed/tv controls. Call light within reach and bed alarm on. Shoes, glasses, and shirt with patient.
[2024-09-30] MEDS: HYDROMORPHONE 0.5 MG INJ IV (19:35)
[2024-09-30] MEDS: ATORVASTATIN 20 MG TABLET PO (20:30)
[2024-09-30] MEDS: dilTIAZem CD 120 MG CAP PO (20:30)
[2024-09-30] MEDS: GABAPENTIN 100 MG CAPSULE PO (20:30)
[2024-09-30] MEDS: METOPROLOL IR 25 MG TABLET PO (20:30)
--- NOTE | 2024-09-30 20:54 | DI.CT.S_ITS ---
PROCEDURE: CT PEL WO CON INDICATIONS: R KIMBERLY Dislocation TECHNIQUE: Noncontrast 3 mm axial sections acquired through the bony pelvis, with coronal and sagittal reformatting. COMPARISON: [facility], CR, XR HIP W PEL IF DONE RT 2V, 09/24/2024, 17:15. [facility], CT, CT HIP RIGHT WITHOUT CONTRAST, 07/15/2024, 9:24. [facility], CR, XR PELVIS 1 OR 2 VIEWS, 09/30/2024, 13:28. FINDINGS: Image quality: Excellent. Bones: There is superior posterior dislocation of the right prosthetic femoral head from the acetabulum. There are multiple bony fragments identified between the trochanter and superior acetabulum. These were present on prior exam. There is increased lucency within the superior aspect of the prosthetic femoral shaft. Lumbosacral fusion, partially visualized. Soft tissues: Prominent right hip intramuscular fluid is present. In addition there is a 5.3 x 5.2 cm focus of fluid within the lateral subcutaneous fat the right hip. Calcifications are present within the uterus likely related to fibroids. IMPRESSION: Superior posterior right hip dislocation as above. No definitive prosthetic or osseous fracture. Lucency is present surrounding the prosthetic femoral shaft possibly related to loosening. Dictated by: Aaliyah Madden M.D. on 09/30/2024 at 21:44 Approved by: Aaliyah Madden M.D. on 09/30/2024 at 21:52
--- NOTE | 2024-09-30 20:55 | PM.HP.1 ---
History of Present Illness History of Present Illness Chief complaint: Right Hip Dislocation Narrative: CHIEF COMPLAINT I started hurting bad quickly. SUBJECTIVE I was called regarding the patient today by the [facility] Emergency Department. Per their report they had attempted a closed reduction of a right hip prosthetic dislocation for Alivia and noted partial extraction of the femoral stem following that maneuver. I was contacted regarding her and discussed her with the emergency department physician at [facility], the on-call physician for Orthopedics at [facility], and the internal medicine physician here at [facility]. She had been having tachycardia there in the 120 range and I requested a medical admission for evaluation of her cardiac status. I discussed her with Dr. Salmeron prior to her transfer here and he noted that she had had a heart rate in the range during the majority of her prior admission with us after her recent surgery, and felt this likely was normal for her. Eventually the decision was made to bring her in under the medical service as we determine further plans for management of her hip. With regards to the dislocation event itself, The patient reports transitioning from a walker to a wheelchair at home. She did not fall but felt pain while moving. She did not feel any pop during the incident. She could not remember what position she was in during the event. She says that she took a few steps after the onset of pain and then sat down in her wheelchair. She describes her current pain level as a 2 after taking pain medication, but mentions that earlier today, the pain reached a 10 at times. She says she has not been taking Xarelto or aspirin at home. She has been using a CPAP machine for oxygenation. She was alert, oriented and appropriate during my exam but was somnolent and said that she attributed this to the medications she had taken recently. PERTINENT PMH: -Rheumatoid arthritis -Atrial fibrillation on Xarelto PRIOR HIP/KNEE PROCEDURES - 09/24/24: Right total hip arthroplasty through posterior approach using Salazar [employer]hew size 12 synergy, cemented, size 58 Redapt acetabulum, dual mobility liner 50 x 12 mm redapt staple augment, multiple screws, OR 30 degree 28 x 44 mm, 28+ 0 Oxinium head, 44 x 58 dual mobility liner, multiple screws. - Two stage exchange revision of right total knee arthroplasty for infection in 2018 PHYSICAL EXAM Right Foot: - Examination: Grossly shortened relative to the left and internally rotated - Wound: Dressing over posterior hip incision clean dry and intact with very mild spotting - Neurologic: Intact sciatic nerve function. 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 Given the failure of closed reduction attempts at the outside hospital and the lengthening of the femur due to retraction of the femoral stem out of the cement mantle in the femoral shaft, further closed reduction attempts were not undertaken today. Further closed reduction attempts could cause additional damage to the total hip arthroplasty components as well as the surrounding bone and it would be extremely challenging to generate sufficient traction to reduce the hip given the partial extraction of the femoral stem out of the canal. Care coordination today consisted largely of initiating a transfer from [facility] at [facility] for definitive management 2. Patient states she has not been taking her Xarelto since surgery and has not been taking aspirin either. Surgery therefore would not need to be delayed due to her systemic anticoagulation status. Xarelto should not be restarted while we determine further plans 3. I have ordered a CT scan of the pelvis to evaluate the integrity of the acetabular component and acetabular augment as well as the possibility of an intra prosthetic dislocation of the dual mobility head 4. Patient is currently in atrial fibrillation with adequate oxygenation on 2 L nasal cannula with a heart rate of 88 and normal blood pressure. Appreciate assistance with medical considerations from the medical team here 5. Patient will be made NPO after midnight 6. My main concern with the hip being left in a dislocated position would be potential compromise of sciatic nerve function. At this point in time the sciatic nerve is functioning entirely normally with 5/5 strength in both plantar flexion and dorsiflexion at both the hallux and the ankle 7. I will discuss the patient's case with Dr. 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) Hypertension Impaired fasting glucose Impaired vision Infection of total right knee replacement Long-term use of hydroxychloroquine Motion sickness Nocturia Normal cardiac ejection fraction (10/2023) Normal cardiac ejection fraction Obesity Osteoarthritis Osteonecrosis Panic attacks Postmenopausal PVC (premature ventricular contraction) Rheumatoid arthritis Sleep apnea Spinal stenosis Subdural hematoma (2016) Wart of face Surgical History History of hung hole surgery (2016) History of incision and drainage History of laminectomy (2012) History of total knee arthroplasty Social History household members: spouse Smoking Status: Never smoker alcohol intake: never Meds Home Medications and Allergies Home Medications Medication Instructions Recorded Confirmed Type calcium carbonate 600 mg PO BID ##0 12/30/17 09/30/24 History multivitamin (Multiple Vitamins 1 tab PO QDAY ##0 12/30/17 09/30/24 History tablet) cholecalciferol (vitamin D3) 50 2,000 unit PO DAILY 09/02/18 09/30/24 History mcg (2,000 unit) tablet (Vitamin D3) triamcinolone acetonide 0.5 % 1 applic topical TID rash 09/02/18 09/30/24 History topical cream hydroxychloroquine 200 mg tablet 400 mg PO DAILY RA 12/17/18 09/30/24 History sulfasalazine 500 mg tablet 1,000 mg PO BID RA 12/17/18 09/30/24 History ascorbic acid (vitamin C) 500 mg 250 mg PO DAILY 08/20/24 09/30/24 History tablet (Vitamin C) digoxin 125 mcg (0.125 mg) tablet 125 mcg PO DAILY 08/20/24 09/30/24 History diltiazem HCl 120 mg tablet 120 mg PO BID 08/20/24 09/30/24 History docusate sodium 100 mg capsule 100 mg PO DAILY 08/20/24 09/30/24 History imipramine HCl 50 mg tablet 100 mg PO QPM 08/20/24 09/30/24 History metoprolol tartrate 25 mg tablet 25 mg PO BID 08/20/24 09/30/24 History pramipexole 0.5 mg tablet 0.5 mg PO QPM 08/20/24 09/30/24 History rivaroxaban 20 mg tablet (Xarelto) 20 mg PO QPM 08/20/24 09/30/24 History ferrous sulfate 325 mg (65 mg 325 mg PO DAILY 08/24/24 09/30/24 History iron) tablet gabapentin 100 mg capsule 100 mg PO BEDTIME 08/24/24 09/30/24 History hydrocodone 5 mg-acetaminophen 325 1 tab PO PRN PRN Pain, Moderate 08/24/24 09/30/24 History mg tablet leflunomide 20 mg tablet 20 mg PO DAILY 08/24/24 09/30/24 History pantoprazole 40 mg tablet,delayed 40 mg PO DAILY 08/24/24 09/30/24 History release rosuvastatin 10 mg tablet 10 mg PO QPM 08/24/24 09/30/24 History sertraline 25 mg tablet 25 mg PO DAILY 08/24/24 09/30/24 History oxycodone-acetaminophen 5 mg-325 2 tab PO Q4-6H PRN pain #60 tabs 09/27/24 09/30/24 Rx mg tablet (Percocet) Allergies Allergy/AdvReac Type Severity Reaction Status Date / Time chlorhexidine Allergy Severe Rash - pt Verified 09/24/24 08:54 states with shelter use. lorazepam [LORAZEPAM] Allergy Severe ANXIETY, Verified 09/24/24 08:54 hyperactivity, combative azathioprine AdvReac Severe N/V Verified 09/24/24 08:54 Benzodiazepines AdvReac Severe TEARING Verified 09/24/24 08:54 [BENZODIAZEPINES] CLOTHES OFF, NO MEMORY X2 DAYS, combative. lisinopril [LISINOPRIL] AdvReac Intermediate COUGH Verified 09/24/24 08:54 clindamycin AdvReac Nausea Verified 09/24/24 08:54 doxycycline AdvReac Nasal Verified 09/24/24 08:54 Discharge nickel AdvReac from Verified 09/24/24 08:54 earrings Exam Vital Signs (past 8 hours): - 09/30/24 18:06 09/30/24 18:22 09/30/24 18:22 Temperature Pulse Rate 95 H Respiratory Rate Blood Pressure 118/67 Pulse Oximetry 99 Oxygen Delivery Method CPAP Oxygen Flow Rate 09/30/24 18:30 09/30/24 18:30 09/30/24 18:31 Temperature 98.3 F Pulse Rate 84 85 Respiratory Rate 7 L 17 Blood Pressure 117/54 L 118/67 Pulse Oximetry 84 L 100 Oxygen Delivery Method Oxygen Flow Rate 2 09/30/24 19:00 09/30/24 19:00 09/30/24 19:30 Temperature Pulse Rate 86 Respiratory Rate 25 H Blood Pressure 108/56 L 107/72 Pulse Oximetry 94 Oxygen Delivery Method Oxygen Flow Rate 09/30/24 19:30 09/30/24 20:00 09/30/24 20:00 Temperature Pulse Rate 94 H 83 Respiratory Rate 35 H 22 Blood Pressure 100/50 L Pulse Oximetry 95 91 Oxygen Delivery Method Oxygen Flow Rate 09/30/24 20:22 09/30/24 20:22 Temperature 97.5 F L Pulse Rate 82 Respiratory Rate 23 Blood Pressure 102/58 L Pulse Oximetry 87 L Oxygen Delivery Method Oxygen Flow Rate Oxygen Delivery Method CPAP Oxygen Flow Rate 2 Assessment & Plan Time-Based Coding :: [TOTAL MINUTES] spent with patient and on the chart (including review of chart, obtaining history, exam, reviewing outside data, placing orders, documenting exam and treatment plan, and counseling patient) on [DATE]. Quality VTE Deep Vein Thrombosis/Pulmonary Embolism Present on Admission: No
[2024-10-01] VITALS (20 sets, daily range): BP systolic 112–117; BP diastolic 54–59; PULSE 79–121; RESP 19–52; TEMP 36.1–36.3; O2SAT 87–99
[2024-10-01] MEDS: HYDROMORPHONE 0.5 MG INJ IV ×5 (00:57→19:31)
--- NOTE | 2024-10-01 01:09 | PC.NURSE ---
[address] per bed -Pain med given [address] Returned to room 231, placed on monitor and storage bin tender, positioned for comfort with hOB 35 degrees. pt's cpap placed at bedside and pt adjusted the fit. Purwick in place and SCD's reapplied. R hip dressing inspected, dry and intact with small shadow drainage noted. Nourishment offered and pt instructed to hydrate until MN.
--- NOTE | 2024-10-01 01:18 | PC.NURSE ---
0000 - liquids removed from bedside after pt reminded to remain NPO. Decision to be made in the AM if she will be taken to the OR on the or Pt expresses understanding.
[2024-10-01] MEDS: BACLOFEN 10 MG TABLET PO ×3 (04:09→19:31)
[2024-10-01 04:56] LABS: Add Manual Diff / Slide Review NO; Basophils Absolute Auto 0 /uL (0-100); Basophils Percent Auto 0.5 % (0-2); Eosinophils Absolute Auto 700 /uL (0-450); Eosinophils Percent Auto 7.1 % (2-4); HEMOLYSIS < 15 (0-50); Hematocrit 23.1 % (36-46); Hemoglobin 7.8 g/dL (12.0-16.0); Lymphocytes Absolute Auto 1200 /uL (1100-4500); Lymphocytes Percent Auto 12.6 % (25-40); Mean Corpuscular HGB Conc 33.9 % (30-36); Mean Corpuscular Hemoglobin 30.1 PG (26-34); Mean Corpuscular Volume 88.8 fL (80-100); Monocytes Absolute Auto 1300 /uL (0-900); Monocytes Percent Auto 13.4 % (3-14); Neutrophils Absolute Auto 6200 /uL (1500-7000); Neutrophils Percent Auto 66.4 % (50-75); Platelet Count 224 X10^3/uL (150-400); Red Cell Distribution Width 16.5 % (11.6-14.8); White Blood Cell Count 9.4 X10^3/uL (4.5-11.0)
[2024-10-01 05:00] LABS: Blood Urea Nitrogen 20 mg/dL (7-17); Calcium 8.4 mg/dL (8.4-10.2); Carbon Dioxide 25 mmol/L (22-32); Estimated Glomerular Filt Rate > 60 mL/min (>60); Glucose 99 mg/dL (80-110); Potassium 3.9 mmol/L (3.4-5.1); Sodium 131 mmol/L (137-145)
[2024-10-01 05:12] LABS: Chloride 105 mmol/L (98-107)
--- NOTE | 2024-10-01 08:04 | P.PN_ITS ---
Subjective Subjective Interval history: Summary: 73-year-old woman under the primary care of Dr. Maegan Ross underwent elective right total hip replacement on 09/24/2024 at this hospital, discharge home on 09/07/2011/26/2023, and unfortunately fell and dislocated her hip. Attempts to reduce the hip at [facility] resulted in displacement of the prosthesis from the femoral shaft. She is admitted for further management and evaluation. She has a history of atrial flutter with variable 2-1 block, and during her recent hospitalization remained in tachycardic rhythm with heart rates in the 120s. She was noted to be in a tachycardic rhythm at [facility]. She was asymptomatic. She has not been taking Xarelto since surgery. She is followed by Dr. Khoi Tubbs of Cardiology. She had a normal dobutamine stress echo on 07/02/2024, at which time she was in atrial flutter with two-to-one AV block, and incidentally noted to have moderate aortic valve stenosis. S: She is doing well, minimal hip pain. She denies any shortness a breath. She was in normal sinus rhythm this morning. Exam Vital Signs (past 8 hours): - 10/01/24 00:30 10/01/24 01:00 10/01/24 01:30 Pulse Rate 79 81 79 Respiratory Rate 23 21 28 H Blood Pressure Pulse Oximetry 98 96 93 10/01/24 02:00 10/01/24 02:28 10/01/24 02:28 Pulse Rate 86 92 H Respiratory Rate 19 27 H Blood Pressure 112/59 L Pulse Oximetry 94 96 10/01/24 02:29 10/01/24 02:29 10/01/24 02:30 Pulse Rate 89 87 Respiratory Rate 25 H 21 Blood Pressure 117/57 L Pulse Oximetry 98 96 10/01/24 03:00 10/01/24 03:30 10/01/24 04:00 Pulse Rate 86 82 87 Respiratory Rate 30 H 35 H 28 H Blood Pressure Pulse Oximetry 93 94 94 10/01/24 04:30 10/01/24 05:00 10/01/24 05:30 Pulse Rate 87 82 81 Respiratory Rate 28 H 28 H 31 H Blood Pressure Pulse Oximetry 87 L 93 95 10/01/24 06:00 Pulse Rate 80 Respiratory Rate 52 H Blood Pressure 117/57 L Pulse Oximetry 97 Oxygen Delivery Method CPAP Oxygen Flow Rate 2 Narrative Exam Narrative: NAD, alert and oriented. Fluent speech. Lungs are clear, normal rate and effort. Heart is regular, loud systolic murmur and no gallop or rub. Abdomen is soft, non distended. Extremities are free of edema. Objective Imaging Right hip Xray:: Radiologist's impression: Reviewed x-ray from [facility] demonstrating right hip dislocation with femoral shaft prosthesis withdrawn approximately 1 cm. Labs 10/01/24 04:00 10/01/24 04:00 Labs: Laboratory Results - last 24 hr 10/01/24 04:00 WBC 9.4 RBC 2.60 L Hgb 7.8 L Hct 23.1 L MCV 88.8 MCH 30.1 MCHC 33.9 RDW 16.5 H Plt Count 224 Neut % (Auto) 66.4 Lymph % (Auto) 12.6 L [place] % (Auto) 13.4 Eos % (Auto) 7.1 H Baso % (Auto) 0.5 Neut # (Auto) 6200 Lymph # (Auto) 1200 [place] # (Auto) 1300 H Eos # (Auto) 700 H Baso # (Auto) 0 Sodium 131 L Potassium 3.9 Chloride 105 Carbon Dioxide 25 BUN 20 H Creatinine 0.80 Estimated GFR > 60 BUN/Creatinine Ratio 25.0 H Glucose 99 Calcium 8.4 PFSH Medical History Subdural hematoma (2016) Osteonecrosis BMI 33.0-33.9,adult (08/2024) Normal cardiac ejection fraction Normal cardiac ejection fraction (10/2023) 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) GIB (gastrointestinal bleeding) (10/2022) Chronic anemia Aortic stenosis Atrial fibrillation/flutter (08/2023) Back pain Arthritis Spinal stenosis Eczema Impaired fasting glucose PVC (premature ventricular contraction) Long-term use of hydroxychloroquine Obesity Anxiety Panic attacks Depression Dermatitis Wart of face Osteoarthritis Rheumatoid arthritis Nocturia Postmenopausal GERD (gastroesophageal reflux disease) Hypertension Sleep apnea Motion sickness Impaired vision Head injury (~07/2017) Infection of total right knee replacement Surgical History History of hung hole surgery (2017) History of incision and drainage History of laminectomy (2012) History of total knee arthroplasty Social History household members: spouse Smoking Status: Never smoker alcohol intake: never Assessment & Plan Assessment & Plan narrative: 1. Right hip dislocation. Management per Orthopedics. Consultation placed. Case reviewed with Dr. Eliazar Bull. 2. Atrial flutter with 2-1 block. Appears adequately rate controlled. Continue digoxin, metoprolol and diltiazem. Monitor on telemetry. She tolerated recent surgery without incident. She had recent normal cardiac stress testing. Hold anticoagulation pending upcoming surgery. 3. Rheumatoid arthritis. Continue routine medication. 4. GERD. Continue pantoprazole. 5. Sleep apnea. 6. Anemia, likely blood loss from recent surgery. Stable. 7. Mild aortic stenosis based on echo from May of 2024. Plan: -NPO, discuss plan with Orthopedics. -continue current medications. -she is back in sinus rhythm. VERA: 10/03 Code status: Full code. And affirmed with the patient on admission Time-Based Coding :: [TOTAL MINUTES] spent with patient and on the chart (including review of chart, obtaining history, exam, reviewing outside data, placing orders, documenting exam and treatment plan, and counseling patient) on [DATE]. Quality VTE Deep Vein Thrombosis/Pulmonary Embolism Present on Admission: No
[2024-10-01] MEDS: PANTOPRAZOLE DR 40 MG TABLET PO (08:54)
[2024-10-01] MEDS: DIGOXIN 0.125 MG TABLET PO (08:54)
[2024-10-01] MEDS: dilTIAZem CD 120 MG CAP PO (08:54)
[2024-10-01] MEDS: SERTRALINE 50 MG TABLET 25 MG PO (08:54)
[2024-10-01] MEDS: HYDROXYCHLOROQUINE 200 MG TABLET 400 MG PO (08:54)
[2024-10-01] MEDS: METOPROLOL IR 25 MG TABLET PO (08:55)
[2024-10-01] MEDS: SODIUM CHLORIDE 0.9% FLUSH 10 ML IV (08:56)
--- NOTE | 2024-10-01 13:44 | P.DS_ITS ---
History of Present Illness History of Present Illness Chief complaint: Right Hip Dislocation Narrative: From H&P: 73-year-old woman under the primary care of Dr. Maegan Ross underwent elective right total hip replacement on 09/24/2024 at this hospital, discharge home on 09/07/2011/26/2023, and unfortunately fell and dislocated her hip. Attempts to reduce the hip at [facility] resulted in displacement of the prosthesis from the femoral shaft. She is admitted for further management and evaluation. She has a history of atrial flutter with variable 2-1 block, and during her recent hospitalization remained in tachycardic rhythm with heart rates in the 120s. She was noted to be in a tachycardic rhythm at [facility]. She was asymptomatic. She has not been taking Xarelto since surgery. She is followed by Dr. Khoi Tubbs of Cardiology. She had a normal dobutamine stress echo on 07/02/2024, at which time she was in atrial flutter with two-to-one AV block, and incidentally noted to have moderate aortic valve stenosis. Discharge Providers Provider Date of admission: 09/30/24 17:34 Discharge Date: 10/01/24 Primary care physician: Sheila Ross MD Consults: 09/30/24 18:33 Consult to Orthopedic Surgery Routine Comment: Consulting Provider: Castro Dickinson Reason for consultation: hip dislocation Has provider been notified: Yes Discharge provider: Rafa Ruiz MD Summary Hospital Course Discharge Diagnosis: 1. Right hip dislocation. Management per Orthopedics. Consultation placed. Case reviewed with Dr. Eliazar Bull. 2. Atrial flutter with 2-1 block. Appears adequately rate controlled. Continue digoxin, metoprolol and diltiazem. Monitor on telemetry. She tolerated recent surgery without incident. She had recent normal cardiac stress testing. Hold anticoagulation pending upcoming surgery. 3. Rheumatoid arthritis. Continue routine medication. 4. GERD. Continue pantoprazole. 5. Sleep apnea. 6. Anemia, likely blood loss from recent surgery. Stable. 7. Mild aortic stenosis based on echo from May of 2024. Hospital Course: She was admitted with a hip dislocation, a flutter with transient 2-1 block which is subsequently rate controlled, and residual blood loss anemia from her original surgery. She did well at this hospital and it was discovered that the equipment required for her surgical reduction was not available. She was discussed with the orthopedist, Dr. Mario, at [facility]. He was able to provide the services and accepted her on transfer based on mutual acceptance of the hospitalist service. No other acute medical issues were active other than her mild blood loss anemia and chronic stable conditions rheumatoid arthritis, atrial flutter, mild aortic stenosis, and sleep apnea. She was stable for discharge by [facility] ambulance. Of note she has been off her anticoagulant, Xarelto since her last discharge on September 27. Status at Discharge Cognitive/behavioral status at discharge: oriented Functional status at discharge: bed bound Overall status at discharge: patient is not back to baseline Time Spent with Patient Time spent: Greater than 30 minutes Exam Vital Signs (past 8 hours): - 10/01/24 06:00 10/01/24 07:00 10/01/24 08:54 Temperature Pulse Rate 80 121 H Respiratory Rate 52 H Blood Pressure 117/57 L Pulse Oximetry 97 Oxygen Delivery Method CPAP Oxygen Flow Rate 10/01/24 09:17 10/01/24 10:30 10/01/24 12:46 Temperature 97 F L 97.4 F L Pulse Rate 88 79 Respiratory Rate 27 H 22 Blood Pressure 116/57 L 112/54 L Pulse Oximetry 99 96 94 Oxygen Delivery Method Room Air Oxygen Flow Rate 2 2 Oxygen Delivery Method Room Air Oxygen Flow Rate 2 Narrative Exam Narrative: NAD, alert and oriented. Fluent speech. Lungs are clear, normal rate and effort. Heart is regular, no murmur gallop or rub. Abdomen is soft, non distended. Extremities are free of edema. Objective Imaging Right hip xray: : Radiologist's impression: Right hip dislocation with femoral shaft prosthesis withdrawn approximately 1 cm. Labs 10/01/24 04:00 10/01/24 04:00 Labs: Laboratory Results - last 24 hr 10/01/24 10/01/24 04:00 08:16 WBC 9.4 RBC 2.60 L Hgb 7.8 L Hct 23.1 L MCV 88.8 MCH 30.1 MCHC 33.9 RDW 16.5 H Plt Count 224 Neut % (Auto) 66.4 Lymph % (Auto) 12.6 L [place] % (Auto) 13.4 Eos % (Auto) 7.1 H Baso % (Auto) 0.5 Neut # (Auto) 6200 Lymph # (Auto) 1200 [place] # (Auto) 1300 H Eos # (Auto) 700 H Baso # (Auto) 0 Sodium 131 L Potassium 3.9 Chloride 105 Carbon Dioxide 25 BUN 20 H Creatinine 0.80 Estimated GFR > 60 BUN/Creatinine Ratio 25.0 H Glucose 99 Calcium 8.4 Blood Type A Positive Antibody Screen Negative [facility] Medical History Subdural hematoma (2016) Osteonecrosis BMI 33.0-33.9,adult (08/2024) Normal cardiac ejection fraction Normal cardiac ejection fraction (10/2023) 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) GIB (gastrointestinal bleeding) (10/2022) Chronic anemia Aortic stenosis Atrial fibrillation/flutter (08/2023) Back pain Arthritis Spinal stenosis Eczema Impaired fasting glucose PVC (premature ventricular contraction) Long-term use of hydroxychloroquine Obesity Anxiety Panic attacks Depression Dermatitis Wart of face Osteoarthritis Rheumatoid arthritis Nocturia Postmenopausal GERD (gastroesophageal reflux disease) Hypertension Sleep apnea Motion sickness Impaired vision Head injury (~07/2017) Infection of total right knee replacement Surgical History History of hung hole surgery (2016) History of incision and drainage History of laminectomy (2012) History of total knee arthroplasty Social History household members: spouse Smoking Status: Never smoker alcohol intake: never Discharge Assessment & Plan Assessment and Plan Assessment: 1. Right hip dislocation. Management per Orthopedics. Consultation placed. Case reviewed with Dr. Eliazar Bull. 2. Atrial flutter with 2-1 block. Appears adequately rate controlled. Continue digoxin, metoprolol and diltiazem. Monitor on telemetry. She tolerated recent surgery without incident. She had recent normal cardiac stress testing. Hold anticoagulation pending upcoming surgery. Plan of Treatment: Transfer to [facility] by [facility] ambulance. Hospitalist accepting is Dr. Whitman, orthopedist is Dr. Mario. Discharge Plan Discharge Plan Patient Disposition: [facility] Other facility: [facility] Discharge orders & Medications Prescriptions: No Action multivitamin [Multiple Vitamins] 1 EACH tablet 1 tab PO QDAY Qty: 0 calcium carbonate 600 MG tablet 600 mg PO BID Qty: 0 cholecalciferol (vitamin D3) [Vitamin D3] 2,000 unit Tablet 2,000 unit PO DAILY triamcinolone acetonide 0.5 % cream 1 applic Topical TID sulfasalazine 500 mg Tablet 1,000 mg PO BID hydroxychloroquine 200 mg Tablet 400 mg PO DAILY Xarelto 20 mg Tablet 20 mg PO QPM Patient Comments: Pt has not taken since before surgery Rx Instructions: must administer with evening meal diltiazem HCl 120 mg Tablet 120 mg PO BID digoxin 125 mcg (0.125 mg) Tablet 125 mcg PO DAILY metoprolol tartrate 25 mg Tablet 25 mg PO BID pramipexole 0.5 mg tablet 0.5 mg PO QPM Patient Comments: take 1/2 to 1 tablet by mouth daily 2 to 3 hours before BEDTIME imipramine HCl 50 mg tablet 100 mg PO QPM Patient Comments: take 2 to 3 tablets by mouth every morning ascorbic acid (vitamin C) [Vitamin C] 500 mg tablet 250 mg PO DAILY docusate sodium 100 mg capsule 100 mg PO DAILY hydrocodone-acetaminophen 5-325 mg Tablet 1 tab PO PRN PRN (Reason: Pain, Moderate) leflunomide 20 mg Tablet 20 mg PO DAILY pantoprazole 40 mg Tablet,Delayed Release (Dr/Ec) 40 mg PO DAILY ferrous sulfate 325 mg (65 mg iron) Tablet 325 mg PO DAILY sertraline 25 mg Tablet 25 mg PO DAILY gabapentin 100 mg capsule 100 mg PO BEDTIME Patient Comments: take 1-3 capsules by mouth at bedtime as directed rosuvastatin 10 mg Tablet 10 mg PO QPM oxycodone-acetaminophen [Percocet] 5-325 mg tablet 2 tab PO Q4-6H PRN (Reason: pain) Qty: 60 0RF Follow up/Referrals: Sheila Ross MD [Primary Care Provider] - Discharge Data Primary Care Provider: Sheila Ross Quality VTE Deep Vein Thrombosis/Pulmonary Embolism Present on Admission: No
--- NOTE | 2024-10-01 14:31 | CM.DANOTE ---
Initial DCP Assessment Note Pt is a 73 yo female, resident of [place], s/p right KIMBERLY 09/24 w/post operative complication of hemorrhagic shock. Patient discharged home w/ [facility] 09/27 and returns with hip dislocation. PCP: Sheila Ross Payer: [facility] Patient typically lives with spouse independently, mod indp prior to surgery d/t poor activity tolerance. Patient has hx of infected knee prosthetic and has hx of home infusion, [facility] and [facility]. Met w/patient this morning, patient tearful, reports she is feeling overwhelmed with the unknown of next steps in medical plan of care. Patient reports feeling uncomfortable physically; hasn't showered due to recent surgery, is in pain from the dislocation and attempt at reduction at the [facility], and feeling frustrated about her dislocation at home stating I was doing so well. Provided support, validation and reflective listening. According to RN Dianna, Dr Salazar and Dr Ruiz would like patient transferred to [facility] by [facility] ambulance. Hospitalist accepting is Dr. Whitman, orthopedist is Dr. Mario. Patient has [facility], RN coordinator likely going through the [facility] for this. CM team will plan to follow clinical course closely. AMBIKA Nelson Discharge Planning/Care Management CM Discharge Assessment Start: 10/01/24 14:25 Freq: Status: Active Protocol: Document 10/01/24 14:25 REED (Rec: 10/01/24 14:31 REED [id number]) Discharge Planning Assessment Assigned Cad Engineer AMBIKA Finch DPOA/Assigned Designee Name Antoine Mathew, spouse Contact Information [phone] Advance Directives? Yes Advance Directives on File No History Provided By Patient,Medical Record Prior Living Arrangements House Household Members spouse Type of transporation used prior to Relies on Others admit Independent with ADL's No: Not currently, recent right KIMBERLY Is patient alert and oriented? Yes Needs Assistance With Bathing,Grooming,Meal Prep, Toileting,Managing Medications ,Home Chores / Shopping Comment Walk in shower, walker. Barriers to Discharge Yes Comment Transfer attempt today to [facility] for hip surgery - Patient has [place] and [facility] may not be in network (?) RN Coordinator working on this. Discharge Plan Transfer to Higher Level of Care Transportation Arrangement [facility]
[2024-10-01] MEDS: PRAMIPEXOLE 0.25 MG TABLET 0.5 MG PO (17:38)
--- NOTE | 2024-10-01 19:36 | PC.NURSE ---
Report called to [facility] spoke to charge nurse who received report, pt to go to rm [id number]. Report given to transport team, no further pt needs at this time.
== END 2024-10-01 19:50 | disposition short-term general hospital (02) | DRG 560 ==
LOC: AC 17:51 → ICU 17:58
PROVIDERS: Admitting Provider Internal Medicine; Family Provider Orthopaedic Surgery; PCP Internal Medicine; Referring Provider Internal Medicine; Visit Provider Internal Medicine
DX: T84.020A Dislocation of internal right hip prosthesis, initial encounter (principal); I48.92 Unspecified atrial flutter; R00.0 Tachycardia, unspecified; M06.9 Rheumatoid arthritis, unspecified; K21.9 Gastro-esophageal reflux disease without esophagitis; G47.30 Sleep apnea, unspecified; I35.0 Nonrheumatic aortic (valve) stenosis; D50.0 Iron deficiency anemia secondary to blood loss (chronic); F41.9 Anxiety disorder, unspecified; I10 Essential (primary) hypertension; W18.30XA Fall on same level, unspecified, initial encounter; Y79.2 Prosthetic and other implants, materials and accessory orthopedic devices associated with adverse incidents; Z79.01 Long term (current) use of anticoagulants
CPT/HCPCS: 36415; 72192; 80048; 85025; 86850; 86900; 86901; 94760; J1171